=== PATIENT | male | born 1930 | race Caucasian/White ===

== ENCOUNTER 2016-10-01 10:43 | Inpatient (IN) | payer OTHER ==
[2016-10-01] VITALS (8 sets, daily range): BP systolic 90–127; BP diastolic 50–72; PULSE 72–90; TEMP 36.4–37.1; O2SAT 94–96; Ht 182.9 cm; Wt 62.3 kg
[~2016-10-01] VITALS: Ht 182.9 cm; Wt 62.3 kg
[~2016-10-01 10:43] MED LIST: ACET1TAB84 PO; EYE OPB; FLM4 PO; MULT-506 PO; VINEGAR PO
[2016-10-01 11:28] LABS: HEMATOCRIT 29.7 % (42-52); MEAN CELL VOLUME 94.9 fL (80-100); MEAN CORPUSCULAR HEMOGLOBIN 31.3 pg (25-34); MEAN PLATELET VOLUME 9.6 fL (7.4-10.4); PLATELET COUNT 257 K/uL (130-400); RED BLOOD COUNT 3.13 M/uL (4.7-6.1); WHITE BLOOD COUNT 10.12 K/uL (4.8-10.8)
[2016-10-01 11:40] LABS: PARTIAL THROMBOPLASTIN RATIO 0.9; PROTHROMBIN TIME (PATIENT) 10.6 SECONDS (9.0-12.0)
--- NOTE | 2016-10-01 11:46 | DIAGNOSTIC IMAGING REPORT ---
CHEST ONE VIEW PORTABLE CLINICAL HISTORY: Atypical chest pain. Dizziness. COMPARISON STUDY: 12/01/2011 FINDINGS: The heart is mildly enlarged. Underlying emphysema is suspected. A left midlung zone opacity was present on the prior study and remains stable. There are right basilar airspace opacities, inflammatory versus atelectatic.[ No pleural effusions are visualized. IMPRESSION: 1. Pulmonary emphysema 2. Cardiomegaly. No evidence of failure. 3. Right basilar airspace opacities, atelectatic versus inflammatory Electronically signed by: Brandon Moses M.D. 10/01/2016 11:44 AM Dictated Date/Time: 10/01/2016 11:43 AM
[2016-10-01 11:48] LABS: BUN/CREATININE RATIO 49.3 (10-20); CALCIUM 8.4 mg/dl (8.5-10.1); CREATININE 1.2 mg/dl (0.60-1.40); POTASSIUM 4.5 mmol/L (3.5-5.1)
[2016-10-01] MEDS ORDERED: LATA0.5S OP (11:58)
[2016-10-01] MEDS ORDERED: TAMS0.4C38 PO (11:58)
[2016-10-01] MEDS ORDERED: MULT-190 PO (11:58)
[2016-10-01] MEDS ORDERED: [UNRECOGNIZED DRUG - REMARK] PO (12:03)
[2016-10-01] MEDS ORDERED: ASPIRIN 81 MG CHEW PO STA (12:12)
[2016-10-01] MEDS ORDERED: OPTIRAY 320 IV PRN (12:30)
[2016-10-01] MEDS ORDERED: NITROGLYCERIN OINT 2% 1GM PACKET EXT ONE (12:30)
--- NOTE | 2016-10-01 12:41 | History and Physical ---
History & Physical Date & Time of Service: October 01, 2016 at 12:37 Chief Complaint: DIZZY Primary Care Physician: Sunny Lai M.D. History of Present Illness Source: patient, family This is an 85 yo M with PMHx of bladder and prostate cx, history of tobacco abuse x 67 years x 1/2 ppd, who presented to the ED after a worsening chest pain which began a few days ago, and reached a peak 10/10 last evening around 6- 7pm. The patient is here with his and son. The patient himself is a poor historian. His chest pain has been ongoing and dull for almost 2 weeks per his report, left chest wall, nonradiating, not relieved with tylenol. He notes increase lightheadedness and some dizziness with going from sit to stand but states this isn't necessarily new, it was just worse last night. He reports he was recently treated for a cold/bronchitis which lasted about 4 weeks. Since that time he has been slightly more short of breath, weak and decreased tolerance with walking. Pt is unable to specify exactly when his pain started, worsened, or other symptoms worsened. He states he has lost his appetite recently, and that he does not drink much of anything besides for coffee. He has dark tarry bowels and this has been going on for over a month now, he denies any BRBPR. He admits to bouts of diarrhea and constipation recently. He admits to nausea this morning, vomited yesterday. Pt notes he has vomited once per week for the last several months. He does not wear supplemental O2 or use anything for walking assistance. He admits to falling twice last night, but denies hitting his head or LOC. He was seen by his PCP this morning and was instructed to come to the ED. Here in the ED trop-I is significantly elevated at 17, hgb=9.8, Cr. 1.2 and around baseline. EKG was completed showing no ST wave inversion, likely old RBBB. A CTA chest was completed and negative for acute PE. 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[employer]) Immunizations History of Influenza Vaccine: No History of Tetanus Vaccine?: No History of Pneumococcal: No History of Hepatitis B Vaccine: No Multi-Drug Resistant Organisms History of MDRO: No Allergies Coded Allergies: No Known Allergies (Unverified , 10/01/16) Home Medications Scheduled Acetaminophen (Tylenol Arthritis Ext Rel), 650 MG PO QPM Latanoprost (Xalatan 0.005% Oph Kimberli), 1 DROPS OP HS Ocuvite Preservision (Ocuvite Preservision), 1 TAB PO DAILY Tamsulosin Hcl (Flomax), 0.4 MG PO QPM [Bladder Cancer Drug], 1 DOSE PO 2XWK Review of Systems Constitutional: + weight loss (5 lbs in 1 month), No chills, No fever, No sweats Eyes: + problem reported (blurred vision with lightheadedness), No diplopia ENT: No sore throat, No unusual epistaxis Respiratory: + dyspnea on exertion, No cough, No dyspnea at rest, No sputum Cardiovascular: + chest pain, No orthopnea, No palpitations Abdomen: + GI bleeding (black tarry stools), + nausea, + vomiting, No constipation, No diarrhea, No pain Musculoskeletal: No joint pain Genitourinary - Male: No hematuria Neurologic: + balance problems, + weakness, No numbness/tingling Psychiatric: No anxiety, No depression symptoms Endocrine: + fatigue Hematologic / Lymphatic: No abnormal bleeding/bruising, No clotting problems Integumentary: No itch, No rash Physical Exam Vital Signs Date Time Temp Pulse Resp B/P Pulse Ox O2 Delivery O2 Flow Rate FiO2 10/01/16 11:40 95 Room Air 10/01/16 11:21 97 Room Air 10/01/16 11:21 97 Room Air 10/01/16 11:05 80 10/01/16 10:49 36.7 87 18 107/67 94 Room Air General Appearance: WD/WN, no apparent distress, + obese Head: normocephalic, atraumatic Eyes: PERRL, EOMI ENT: hearing grossly normal, pharynx normal Neck: supple, no JVD Respiratory/Chest: chest non-tender, no respiratory distress, no accessory muscle use, + pertinent finding (faint crackles at left base, otherwise clear throughout) Cardiovascular: regular rate, rhythm, no JVD, normal peripheral pulses, + systolic murmur (Grade II/V LSB) Abdomen/GI: normal bowel sounds, non tender, soft, no organomegaly Back: normal inspection, no CVA tenderness Extremities/Musculoskelatal: normal inspection, no calf tenderness, no pedal edema, + pertinent finding (dressing on Left forearm c/d/i after sustained fall. ) Neurologic/Psych: alert, normal mood/affect, oriented x 3 Skin: normal color, warm/dry Diagnostics Laboratory Results Results Past 24 Hours Test 10/01/16 11:10 10/01/16 11:14 Range/Units White Blood Count 10.12 4.8-10.8 K/uL Red Blood Count 3.13 4.7-6.1 M/uL Hemoglobin 9.8 14.0-18.0 g/dL Hematocrit 29.7 42-52 % Mean Corpuscular Volume 94.9 80-100 fL Mean Corpuscular Hemoglobin 31.3 25-34 pg Mean Corpuscular Hemoglobin Concent 33.0 32-36 g/dl RDW Standard Deviation 50.1 36.4-46.3 fL RDW Coefficient of Variation 14.6 11.5-14.5 % Platelet Count 257 130-400 K/uL Mean Platelet Volume 9.6 7.4-10.4 fL Prothrombin Time 10.6 9.0-12.0 SECONDS Prothromb Time International Ratio 1.0 0.9-1.1 Activated Partial Thromboplast Time 24.0 21.0-31.0 SECONDS Partial Thromboplastin Ratio 0.9 Sodium Level 143 136-145 mmol/L Potassium Level 4.5 3.5-5.1 mmol/L Chloride Level 110 98-107 mmol/L Carbon Dioxide Level 28 21-32 mmol/L Anion Gap 5.0 3-11 mmol/L Blood Urea Nitrogen 59 7-18 mg/dl Creatinine 1.20 0.60-1.40 mg/dl Est Creatinine Clear Calc Drug Dose 38.8 ml/min Estimated GFR () 62.6 Estimated GFR (Non- 54.0 BUN/Creatinine Ratio 49.3 10-20 Random Glucose 98 70-99 mg/dl Calcium Level 8.4 8.5-10.1 mg/dl Total Bilirubin 0.3 0.2-1 mg/dl Aspartate Amino Transf (AST/SGOT) 85 15-37 U/L Alanine Aminotransferase (ALT/SGPT) 21 12-78 U/L Alkaline Phosphatase 50 45-117 U/L Total Creatine Kinase 683 39-308 U/L Creatine Kinase MB 61.5 0.5-3.6 ng/ml Creatine Kinase MB Ratio 9.0 0-3.0 Total Protein 6.7 6.4-8.2 gm/dl Albumin 3.4 3.4-5.0 gm/dl Globulin 3.3 2.5-4.0 gm/dl Albumin/Globulin Ratio 1.0 0.9-2 Bedside Troponin I 17.020 0-0.045 ng/ml Diagnostic Radiology CXR 10/01/16 IMPRESSION: 1. Pulmonary emphysema 2. Cardiomegaly. No evidence of failure. 3. Right basilar airspace opacities, atelectatic versus inflammatory EKG Vent. rate 83 BPM FL interval 188 ms QRS duration 90 ms QT/QTc 376/441 ms P-R-T axes 67 -27 4 Sinus rhythm with Fusion complexes and Premature atrial complexes with Aberrant conduction Otherwise normal ECG When compared with ECG of 10-AUG-2009 12:38, Fusion complexes are now Present T wave amplitude has increased in Anterior leads Impression Assessment and Plan This is an 85 yo M with PMHx of bladder and prostate cx, history of tobacco abuse x 67 years x 1/2 ppd, who presented to the ED after a worsening chest pain which began a few days ago, and reached a peak 10/10 last evening around 6- 7pm. Elevated troponin - Admit to tele - Checking cardiac biomarkers, first troponin elevated at 17, will trend 2 more sets - Possible that this is demand ischemia vs NSTEMI as the pt has dropped 4 g from Mar 2016 where Hgb was 13.3, and is now down to 9.8. He is also admitting to black and tarry stools. - Cards consulted, no urgent need for cath as the pt chest pain is improved with nitro and morphine in the ED. - Nitro prn and morphine sulfate prn - Echo 2D ordered - QAM EKG ordered x 3 - CTA negative for acute PE GI bleed - Gastroenterology consulted - Hemoccult + in the ED, not on any anticoagulation - Will transfuse 1 U PRBC with ischemia and symptoms as per HPI. - NPO except sips and chips - Protonix bolus 40 mg IV BID Tobacco Use - Will order nicotine patch - Cessation encouraged Bladder cancer hx Prostate Cancer hx - Cont Flomax daily DVT ppx: teds, scds CODE STATUS: DNR Disposition: From home, lives with , no discharge needs anticipated. Pt seen/examined independently. I discussed the case with the PA and agree with the findings and plan as documented in the note. Any exceptions or clarifications are listed here: 85 y/o M initial complaint of central CP - Labs consistent with NSTEMI Pt has also had black stools over past 2-3 weeks and Hb has dropped 4 units compared to recent Cardiology and GI consults are pending at [facility] AAO x 3 S1,2 R CTAB NT, NT No CCE P: Pt admitted to telemetry, placed on Protonix, GI consult requested - receiving 1 unit PRBCs as ischemia may be demand-related We have also contacted cardiology although there is little we can do regarding anticoagulation/cath until his bleeing resolves Pt is comfortable at time of admission - vital signs stable Above discussed with pt/ at bedside and PA Documented By: Hernan Iglesias Level of Care Telemetry Resuscitation Status DO NOT RESUSCITATE VTE Prophylaxis VTE Risk Assessment Done? Y/N: Yes Risk Level: Low Given or contraindicated: T.E.D. Stockings, SCD's
--- NOTE | 2016-10-01 12:55 | DIAGNOSTIC IMAGING REPORT ---
CT ANGIOGRAM OF THE CHEST CLINICAL HISTORY: Chest pain, cough, dizziness, vomiting. COMPARISON STUDY: 01/21/2007 TECHNIQUE: Following the IV administration of 94 mL of Optiray-320, CT angiogram of the thorax was performed from the thoracic inlet to the lung bases utilizing the pulmonary embolus protocol. Images are reviewed in the axial, sagittal, and coronal planes. IV contrast was administered without complication. MIP imaging was performed. CT DOSE: 308.20 mGycm FINDINGS: Mediastinal and hilar lymph nodes are the upper limits of normal in size. There is no pathologic axillary lymphadenopathy. The heart is enlarged. There are coronary artery calcifications. There was no evidence of thoracic aortic dilatation. There were no pulmonary artery filling defects to indicate acute pulmonary embolism. No pleural effusions are visualized. There is pulmonary emphysema. There are dependent bilateral pulmonary airspace opacities. There is respiratory motion artifact. There are few scattered pleural plaques. There are several right middle lobe pulmonary nodules, the largest of which measures 3 mm. There is a 5 mm left upper lobe pulmonary nodule. IMPRESSION: 1. No CT evidence of acute pulmonary embolism 2. Cardiomegaly and coronary artery calcifications 3. Severe emphysema 4. Bilateral pleural plaques 5. Scattered subcentimeter pulmonary nodules, the largest of which measures 5 mm and is located within the left upper lobe 6. Bilateral dependent pulmonary airspace opacities, atelectasis versus pneumonia. Clinical correlation and follow-up is recommended Electronically signed by: Brandon Moses M.D. 10/01/2016 12:54 PM Dictated Date/Time: 10/01/2016 12:48 PM
[2016-10-01] MEDS ORDERED: ACETAMINOPHEN 325 MG TAB PO PRN (13:15)
[2016-10-01] MEDS ORDERED: ONDANSETRON INJ 2 MG/ML 2 ML VIAL IV PRN (13:15)
[2016-10-01] MEDS ORDERED: POLYETHYLENE (MIRALAX) 17 GM PACK PO PRN (13:15)
[2016-10-01] MEDS ORDERED: NITROGLYCERIN 0.4 MG SL PER TAB CHARGE SL PRN (13:15)
[2016-10-01] MEDS ORDERED: HEPARIN SOD (PORCINE) 1000 UNIT/ML 10 ML VIAL IV STA (14:28)
[2016-10-01] MEDS ORDERED: HEPARIN 25,000 UNIT/500ML D5W 500 ML IV PRN (14:30)
[2016-10-01] MEDS: SODIUM CHLORIDE 0.9% 1000ML 1,000 ML IV SCH (15:31)
--- NOTE | 2016-10-01 17:06 | ECHOCARDIOGRAM REPORT ---
*NOTICE TO RECEIVING DEMOCRAT AGENCY This information is strictly Confidential and protected under [place] law. [place] law prohibits you from making any further disclosure of this information unless further disclosure is expressly permitted by the written consent of the person to whom it pertains or is authorized by law. A general authorization for the release of medical or other information is not sufficient for this purpose. Hospital accepts no responsibility if the information is made available to any other person, INCLUDING THE PATIENT. Interpretation Summary * Name: BRITTON STALEY Study Date: 10/01/2016 03:28 PM BP: 127/72 mmHg * Patient Location: [facility] HR: 88 * : 1930 (M/d/yyyy) Gender: Male Height: 72 in * Age: 85 yrs Ethnicity: CA Weight: 139 lb * Ordering Physician: Lashay Gonzalez * Referring Physician: Self, Referred * Performed By: Doris Thompson RDCS * * Reason For Study: CHEST PAIN * BSA: 1.8 m2 * -- Conclusions -- * Left ventricular systolic function is low normal. * Grade I diastolic dysfunction, (abnormal relaxation pattern). * There are regional wall motion abnormalities as specified. * Mild to moderate aortic regurgitation. * There is moderate mitral annular calcification. * There is moderate mitral regurgitation. * Right ventricular systolic pressure is normal. Procedure Details * A complete two-dimensional transthoracic echocardiogram was performed (2D, M-mode, Doppler and color flow Doppler). Left Ventricle * The left ventricle is normal in size. * There is normal left ventricular wall thickness. * Ejection Fraction = 50-55%. * Left ventricular systolic function is low normal. * Grade I diastolic dysfunction, (abnormal relaxation pattern). * There are regional wall motion abnormalities as specified. * Basal infero-lateral hypokinesis, moderate Right Ventricle * The right ventricle is normal in size and function. Atria * The left atrial size is normal. * Right atrial size is normal. Mitral Valve * There is moderate mitral annular calcification. * Calcified mitral apparatus. * There is moderate mitral regurgitation. Tricuspid Valve * The tricuspid valve is not well visualized, but is grossly normal. * There is mild tricuspid regurgitation. * Right ventricular systolic pressure is normal. Aortic Valve * Aortic valve sclerosis moderate, without significant aortic valvular stenosis. * No hemodynamically significant valvular aortic stenosis. * Mild to moderate aortic regurgitation. Great Vessels * The aortic root is normal size. Pericardium/Pleural * There is no pericardial effusion. Great Vessels * Normal inferior vena cava diameter and respiratory variation suggests normal central venous pressure. MMode 2D Measurements and Calculations IVSd 1.2 cm IVSs 1.7 cm LVIDd 5.2 cm LVIDs 3.8 cm LVPWd 1.1 cm LVPWs 1.6 cm IVS/LVPW 1.0 FS 25.5 % EDV(Teich) 127.2 ml ESV(Teich) 63.6 ml EF(Teich) 50.0 % EDV(cubed) 137.4 ml ESV(cubed) 56.8 ml EF(cubed) 58.7 % % IVS thick 47.3 % % LVPW thick 44.1 % LV mass(C)d 227.6 grams LV mass(C)dI 124.7 grams/m\S\2 LV mass(C)s 257.8 grams LV mass(C)sI 141.3 grams/m\S\2 SV(Teich) 63.6 ml SI(Teich) 34.8 ml/m\S\2 SV(cubed) 80.6 ml SI(cubed) 44.2 ml/m\S\2 Ao root diam 3.9 cm Ao root area 11.9 cm\S\2 LVAd ap4 35.8 cm\S\2 LVLd ap4 9.0 cm EDV(MOD-sp4) 116.6 ml EDV(sp4-el) 120.4 ml LVAs ap4 23.4 cm\S\2 LVLs ap4 7.7 cm ESV(MOD-sp4) 63.5 ml ESV(sp4-el) 60.1 ml EF(MOD-sp4) 45.5 % EF(sp4-el) 50.1 % LVAd ap2 34.1 cm\S\2 LVLd ap2 8.7 cm EDV(MOD-sp2) 114.2 ml EDV(sp2-el) 113.8 ml LVAs ap2 20.6 cm\S\2 LVLs ap2 6.7 cm ESV(MOD-sp2) 54.4 ml ESV(sp2-el) 53.9 ml EF(MOD-sp2) 52.3 % EF(sp2-el) 52.7 % LVLd %diff -3.80 % EDV(MOD-bp) 118.4 ml LVLs %diff -16.10 % ESV(MOD-bp) 62.6 ml EF(MOD-bp) 47.1 % SV(MOD-sp4) 53.1 ml SI(MOD-sp4) 29.1 ml/m\S\2 SV(MOD-sp2) 59.7 ml SI(MOD-sp2) 32.7 ml/m\S\2 SV(MOD-bp) 55.8 ml SI(MOD-bp) 30.6 ml/m\S\2 SV(sp4-el) 60.3 ml SI(sp4-el) 33.0 ml/m\S\2 SV(sp2-el) 60.0 ml SI(sp2-el) 32.9 ml/m\S\2 Doppler Measurements and Calculations Ao V2 max 174.4 cm/sec Ao max PG 12.2 mmHg Ao max PG (full) 9.3 mmHg AI max aruna 331.1 cm/sec AI max PG 43.8 mmHg AI dec slope 125.0 cm/sec\S\2 AI P1/2t 775.8 msec LV V1 max PG 2.9 mmHg LV V1 max 84.6 cm/sec TR max aruna 249.9 cm/sec
--- NOTE | 2016-10-01 19:50 | GASTROINTESTINAL CONSULTATION ---
DATE OF CONSULTATION: 10/01/2016 CHIEF COMPLAINT: Melena and anemia. HISTORY OF PRESENT ILLNESS: Mr. Christopher is an 85-year-old white male who presented to the Emergency Room with substernal chest pain and found to have evidence of myocardial injury based on serum CK and troponin levels. During his workup, the patient was also found to be anemic and reports a 6-12 month history that he passes black stools on many days, but not all. This was black, but not necessarily tarry in its appearance. The patient denies any hematemesis or coffee ground emesis but does report a pattern that so on some days he will eat and then approximately a half hour later have vomiting. His appetite has been diminished and he has lost approximately 10-15 pounds over the past year or so. The patient did give an unclear history regarding surgery that he had when he was 20 years of age. 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 He did not report a history of prior peptic ulcer disease and apparently had no symptoms following this over the past 60 years or so. He also describes that he may have had a rigid sigmoidoscope at the same time, but does not recall any prior history of colonoscopy or subsequent upper endoscopy, at any time in the past. He occasionally uses Aleve, but does not report a steady or constant-dosing pattern. PAST MEDICAL HISTORY: Includes bladder cancer and prostate cancer. SOCIAL HISTORY: The patient denies alcohol use. He continues to use tobacco products approximately 6-7 cigarettes daily. 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 ALLERGIES: He has no known drug allergies. CURRENT HOME MEDICATIONS: Include latanoprost, Xalatan, Ocuvite, Flomax, a bladder cancer drug and acetaminophen. FAMILY HISTORY: Showed no reports of colorectal cancer or inflammatory bowel disease in any first or second degree relatives. REVIEW OF SYSTEMS: Otherwise noncontributory based on 14-point exam except for mentioned above. On further review of systems, the patient described that his stool patterns can fluctuate such that he has constipation and occasionally diarrhea. He does use mineral oil and when his stools do loosen up, they tend to be more of a light brown. PHYSICAL EXAMINATION: VITAL SIGNS: Today on admission to the Emergency Room - blood pressure 107/67, room air 94%. He is afebrile at 36.7, heart rate 87, respirations 18. GENERAL: The patient is awake, alert and oriented x3. NEUROLOGICALLY: He is nonfocal. HEENT: Sclerae are anicteric, conjunctiva moist. Oral mucosa moist. HEART: Normal S1, S2, without rubs, gallops or murmurs. LUNGS: Clear to auscultation without wheezes or rhonchi. ABDOMEN: Soft, shows a midline incision that is well healed. The abdomen is flat with positive bowel sounds. There is no evidence of abdominal bruits. I do not appreciate hepatosplenomegaly. There is no evidence of ascites or shifting dullness. EXTREMITIES: Without clubbing, cyanosis or edema. RECTAL: Deferred at this time. LABORATORY STUDIES ON ADMISSION: White count 10.1, hemoglobin 9.8, MCV 95, platelet count is 257. INR 1.0. His BUN and creatinine are 59 and 1.2, on admission. Glucose 98. Liver tests are normal with total bilirubin 0.3, AST slightly elevated at 85 (myocardial injury) but normal ALT of 21 and alkaline phosphatase is normal at 50. His CK is elevated at 683 with an MB fraction of 61.5. The patient also has an elevated troponin level of 17. His albumin is 3.4. IMAGING DATA: The patient had an EKG which showed sinus rhythm with apices, otherwise normal. There is T-wave amplitude increase in the anterior leads. Chest x-ray shows pulmonary emphysema, evidence of cardiomegaly and airspace disease in the right base. A CT scan was also performed. IMPRESSION: The patient with a hemoglobin of 9.8 on admission with reports of melena and dark stool that could be as long as 6 months and maybe a year. The patient denies Pepto-Bismol use, has not used significant amounts of NSAIDs over the past months, although there has been a pattern of approximately 12-pound weight loss. The BUN and creatinine ratio is elevated and may suggest an upper bleeding source. The exact surgery performed 60 years ago on his stomach is unclear. PLAN AND RECOMMENDATIONS: I made the following recommendations: An upper endoscopy and eventually colonoscopy is prudent, particularly if anticoagulation will be needed in short or long-term fashion. However, will await cardiology's input as to whether the patient can undergo this given the degree of enzyme elevation as well as the presentation on admission of 10/10 chest pain. Depending on would continue PPI drip and with test stools for H. pylori. I will tentatively make the patient n.p.o. for possible EGD tomorrow; however, but I will need to coordinate this with the primary care team and cardiology to ensure that the risk is acceptable for this patient given his presentation and cardiac enzyme elevations. The patient did have an echocardiogram, which was performed but is presently pending final report. There is evidence on the preliminary interpretation of mild to moderate aortic regurgitation, mitral regurgitation, normal RV systolic pressure, but regional wall motion abnormalities and LV function is low normal. Ejection fraction is 50-55% with normal RV function. Mild tricuspid regurgitation and there is no evidence for pericardial effusion. We will keep patient n.p.o. after midnight except for necessary meds. Further recommendations to follow once cardiology assessment is completed. Thank you for allowing me to participate in this patient's care. Ultimately, the patient will eventually require colonoscopy and upper endoscopy and time will be based on cardiology workup.
[2016-10-01] MEDS ORDERED: ATORVASTATIN 40 MG TAB PO ONE (20:00)
--- NOTE | 2016-10-01 20:17 | EMERGENCY ROOM VISIT NOTE ---
History Report prepared by Artemio: Sanjay Talley Under the Supervision of: Dr. John Yanez M.D. First contact with patient: 12:04 Chief Complaint: CHEST PAIN Stated Complaint: DIZZY Nursing Triage Summary: Chest pressure and dizziness intermittent for past month, started to be constant with the chest pressure since last night. Minor, non-radiating (and feels better upon presentation to ED), worse with palpation. Took 2 Aleve, unknown dose last night. Also had nausea with near syncope and lowered to floor, abrasion to right forearm on railing, no other injuries. Hx of bladder cancer ongoing, no current treatment for it. History of Present Illness The patient is an 85 year old male who presents to the Emergency Room with complaints of intermittent dizziness beginning one month ago. The patient reports that his current discomfort is a 5/10 in severity. He states that his symptoms worsened last evening and said it felt like a minor MA. The patient notes that he was short of breath and it was painful to breath. The patient states that he currently takes Tylenol Arthritis daily. He reports that he has had an MA in the past. His son notes that the patient is currently a smoker and had a shadow shown on his lungs a few years ago. He states that he is currently taking Promex for his current prostate and bladder cancer. The patient notes that he has no history of chest problems. The patient currently complains of nausea, chest pain, decreased appetite, and melena. Pt denies LOC, headache, fevers, chills, diaphoresis, visual changes, neck pain, vomiting, abdominal pain , back pain, hematochezia, urinary symptoms, numbness, weakness, lymphadenopathy , rash, or other complaints. He states that his PCP is Sunny Lai at [facility]. Source of History: patient, family (Spouse and son) Onset: last month Position: other (global) Symptom Intensity: 5/10 Quality: other (dizziness) Timing: intermittent Associated Symptoms: + SOB, + chest pain, + melena Review of Systems See HPI for pertinent positives and negatives. A total of ten systems were reviewed and were otherwise negative. Past Medical & Surgical Medical Problems: (1) Bladder cancer (2) Elevated troponin (3) GI bleed (4) Prostate CA Family History No pertinent family history stated. Social History Smoking Status: Current Every Day Smoker Marital Status: Housing Status: lives with family Occupation Status: retired Current/Historical Medications Scheduled Acetaminophen (Tylenol Arthritis Ext Rel), 650 MG PO QPM Latanoprost (Xalatan 0.005% Oph Kimberli), 1 DROPS OP HS Ocuvite Preservision (Ocuvite Preservision), 1 TAB PO DAILY Tamsulosin Hcl (Flomax), 0.4 MG PO QPM [Bladder Cancer Drug], 1 DOSE PO 2XWK Allergies Coded Allergies: No Known Allergies (Unverified , 10/01/16) Physical Exam Vital Signs Date Time Temp Pulse Resp B/P Pulse Ox O2 Delivery O2 Flow Rate FiO2 10/01/16 13:19 93 10/01/16 13:13 87 22 99 10/01/16 13:00 130/70 10/01/16 12:48 122/63 10/01/16 12:13 90 18 97 10/01/16 12:01 156/83 10/01/16 11:43 77 22 95 10/01/16 11:40 95 Room Air 10/01/16 11:30 116/60 10/01/16 11:21 97 Room Air 10/01/16 11:21 97 Room Air 10/01/16 11:13 80 21 96 10/01/16 11:05 80 10/01/16 11:00 119/58 10/01/16 10:58 131/65 10/01/16 10:49 36.7 87 18 107/67 94 Room Air Physical Exam GENERAL: Awake, alert, well-appearing, in no distress HENT: Normocephalic, atraumatic. Oropharynx unremarkable. EYES: Normal conjunctiva. Sclera non-icteric. NECK: Supple. No nuchal rigidity. FROM. No JVD. RESPIRATORY: Clear to auscultation. CARDIAC: Regular rate, normal rhythm. Extremities warm and well perfused. Pulses equal. ABDOMEN: Soft, non-distended. No tenderness to palpation. No rebound or guarding. No masses. RECTAL: Trace of nash positive stool, no gross blood MUSCULOSKELETAL: Chest examination reveals no tenderness. The back is symmetrical on inspection without obvious abnormality. There is no CVA tenderness to palpation. No joint edema. LOWER EXTREMITIES: Calves are equal size bilaterally and non-tender. No edema. No discoloration. NEURO: Normal sensorium. No sensory or motor deficits noted. SKIN: No rash or jaundice noted. Medical Decision & Procedures ER Provider Diagnostic Interpretation: Radiology results as stated below per my review and radiologist interpretation: CHEST ONE VIEW PORTABLE CLINICAL HISTORY: Atypical chest pain. Dizziness. COMPARISON STUDY: 12/01/2011 FINDINGS: The heart is mildly enlarged. Underlying emphysema is suspected. A left midlung zone opacity was present on the prior study and remains stable. There are right basilar airspace opacities, inflammatory versus atelectatic.[ No pleural effusions are visualized. IMPRESSION: 1. Pulmonary emphysema 2. Cardiomegaly. No evidence of failure. 3. Right basilar airspace opacities, atelectatic versus inflammatory Electronically signed by: Brandon Moses M.D. 10/01/2016 11:44 AM Dictated Date/Time: 10/01/2016 11:[address] ANGIOGRAM OF THE CHEST CLINICAL HISTORY: Chest pain, cough, dizziness, vomiting. COMPARISON STUDY: 01/21/2007 TECHNIQUE: Following the IV administration of 94 mL of Optiray-320, CT angiogram of the thorax was performed from the thoracic inlet to the lung bases utilizing the pulmonary embolus protocol. Images are reviewed in the axial, sagittal, and coronal planes. IV contrast was administered without complication. MIP imaging was performed. CT DOSE: 308.20 mGycm FINDINGS: Mediastinal and hilar lymph nodes are the upper limits of normal in size. There is no pathologic axillary lymphadenopathy. The heart is enlarged. There are coronary artery calcifications. There was no evidence of thoracic aortic dilatation. There were no pulmonary artery filling defects to indicate acute pulmonary embolism. No pleural effusions are visualized. There is pulmonary emphysema. There are dependent bilateral pulmonary airspace opacities. There is respiratory motion artifact. There are few scattered pleural plaques. There are several right middle lobe pulmonary nodules, the largest of which measures 3 mm. There is a 5 mm left upper lobe pulmonary nodule. IMPRESSION: 1. No CT evidence of acute pulmonary embolism 2. Cardiomegaly and coronary artery calcifications 3. Severe emphysema 4. Bilateral pleural plaques 5. Scattered subcentimeter pulmonary nodules, the largest of which measures 5 mm and is located within the left upper lobe 6. Bilateral dependent pulmonary airspace opacities, atelectasis versus pneumonia. Clinical correlation and follow-up is recommended Electronically signed by: Brandon Moses M.D. 10/01/2016 12:54 PM Dictated Date/Time: 10/01/2016 12:48 PM Laboratory Results 10/01/16 11:10 10/01/16 11:10 Test 10/01/16 11:10 10/01/16 11:14 Red Blood Count 3.13 M/uL (4.7-6.1) Mean Corpuscular Volume 94.9 fL (80-100) Mean Corpuscular Hemoglobin 31.3 pg (25-34) Mean Corpuscular Hemoglobin Concent 33.0 g/dl (32-36) RDW Standard Deviation 50.1 fL (36.4-46.3) RDW Coefficient of Variation 14.6 % (11.5-14.5) Mean Platelet Volume 9.6 fL (7.4-10.4) Prothrombin Time 10.6 SECONDS (9.0-12.0) Prothromb Time International Ratio 1.0 (0.9-1.1) Activated Partial Thromboplast Time 24.0 SECONDS (21.0-31.0) Partial Thromboplastin Ratio 0.9 Anion Gap 5.0 mmol/L (3-11) Est Creatinine Clear Calc Drug Dose 38.8 ml/min Estimated GFR () 62.6 Estimated GFR (Non- 54.0 BUN/Creatinine Ratio 49.3 (10-20) Calcium Level 8.4 mg/dl (8.5-10.1) Total Bilirubin 0.3 mg/dl (0.2-1) Aspartate Amino Transf (AST/SGOT) 85 U/L (15-37) Alanine Aminotransferase (ALT/SGPT) 21 U/L (12-78) Alkaline Phosphatase 50 U/L (45-117) Total Creatine Kinase 683 U/L (39-308) Creatine Kinase MB 61.5 ng/ml (0.5-3.6) Creatine Kinase MB Ratio 9.0 (0-3.0) Total Protein 6.7 gm/dl (6.4-8.2) Albumin 3.4 gm/dl (3.4-5.0) Globulin 3.3 gm/dl (2.5-4.0) Albumin/Globulin Ratio 1.0 (0.9-2) Bedside Troponin I 17.020 ng/ml (0-0.045) Laboratory results reviewed by me Medications Administered Medications (Trade) Dose Ordered Sig/Eric Route Start Time Stop Time Status Last Admin Dose Admin Aspirin (Aspirin Chew) 324 mg NOW STAT PO 10/01/16 12:12 10/01/16 12:14 DC 10/01/16 12:26 324 MG Nitroglycerin 0.5 inch 0.5 inch NOW ONCE EXT 10/01/16 12:30 10/01/16 12:31 DC 10/01/16 12:49 0.5 INCH Sodium Chloride (Nss 1000ml) 1,000 ml @ 80 mls/hr [id number] IV 10/01/16 13:11 10/31/16 13:10 10/01/16 15:31 80 MLS/HR ECG Indication: chest pain Rate (beats per minute): 83 Rhythm: sinus rhythm Findings: PAC, no acute ischemic change ED Course 1210: The patient was evaluated in room C07. A complete history and physical exam was performed. 1431: Upon reexamination, the patient was resting easy. I discussed the test results and treatment plan with Dr. Iglesias, Hospitalist. The patient will be evaluated for further management. Medical Decision Triage Nursing notes reviewed. The patient's presentation and history were concerning for chest pain. Etiologies such as cardiac ischemia, aortic dissection, pulmonary embolism, pneumonia, pneumothorax, musculoskeletal, infections, gastrointestinal, as well as others were entertained. the patient was evaluated. Clinically he was doing well. EKG did not show acute ischemic change. The patient had a mild anemia on CBC. Her chemistry panel shows mild dehydration and coags are unremarkable. Chest x-ray shows some atelectasis. Cardiac markers revealed significant elevation of troponin and CK-MB concerning for non-ST elevation MA. Given the patient's history of cancer a CT scan of the chest was performed. No pulmonary embolus was seen. The patient was given aspirin. Because of his anemia a rectal examination was performed. The patient had heme positive stools. Because of this IV heparin was not initiated. He will need further evaluation and management in the hospital. I discussed this with the patient as well as family. Internal medicine was consulted. They've evaluated the patient in the Emergency Room for further management. The chart was completed utilizing [employer] voice recognition software. Grammatical errors, random word insertions, pronoun errors, and incomplete sentences are an occasional consequence of this system due to software limitations, ambient noise, and hardware issues. Any formal questions or concerns about the content, text, or information contained within the body of this dictation should be directly addressed to the physician for clarification. Consults Time Called: 1423 Consulting Physician: Ilia Mcintoshist Returned Call: 1431 I updated Alexis Mcintosh of the patient's case. The patient will be evaluated for further treatment. Impression Primary Impression: Non-ST elevation MA (NSTEMI) Additional Impressions: Elevated troponin Anemia Critical Care I have personally spent greater than 30 minutes of critical care time in the direct management of this patient. This includes bedside care, interpretation of diagnostic studies, and testing, discussion with consultants, patient, and family members, and other required patient management activities. This 30 minutes is in excess of all separately billable procedures. Scribe Attestation The scribe's documentation has been prepared under my direction and personally reviewed by me in its entirety. I confirm that the note above accurately reflects all work, treatment, procedures, and medical decision making performed by me. Departure Information Dispostion Being Evaluated By Hospitalist Referrals Sunny Lai M.D. (PCP) Patient Instructions My [facility] Problem Qualifiers
[2016-10-01 20:22] LABS: HEMATOCRIT 27.9 % (42-52)
[2016-10-01] MEDS ORDERED: PANTOprazole INJ 40 MG in SYRINGE 0 ML IV SCH (21:00)
[2016-10-01] MEDS: LATANOPROST 0.005% OP SOLN 2.5 ML BTL OP SCH (21:25)
[2016-10-01] MEDS: TAMSULOSIN HCL 0.4 MG CAP PO SCH (21:25)
[2016-10-02] VITALS (14 sets, daily range): BP systolic 93–151; BP diastolic 42–77; PULSE 68–89; TEMP 36.3–37.1; O2SAT 92–97
[2016-10-02 02:07] LABS: BASO % 0.4 %; BASO ABS # 0.03 K/uL (0-0.2); COMPLETE YES; EOS % 4.5 %; HEMATOCRIT 27.1 % (42-52); IG% 0.3 %; LYMPH % 32.1 %; LYMPH ABS # 2.41 K/uL (1.2-3.4); MEAN CELL VOLUME 93.8 fL (80-100); MEAN CORPUSCULAR HEMOGLOBIN 31.1 pg (25-34); MEAN CORPUSCULAR HGB CONC 33.2 g/dl (32-36); MEAN PLATELET VOLUME 8.8 fL (7.4-10.4); MONO % 9.9 %; NEUT % 52.8 %; PLATELET COUNT 186 K/uL (130-400); RED BLOOD COUNT 2.89 M/uL (4.7-6.1); WHITE BLOOD COUNT 7.51 K/uL (4.8-10.8)
[2016-10-02 02:26] LABS: BUN/CREATININE RATIO 39.3 (10-20); CREATININE 1.1 mg/dl (0.60-1.40)
[2016-10-02 02:48] LABS: CHOLESTEROL/HDL RATIO 2.3
--- NOTE | 2016-10-02 03:22 | CARDIOLOGY CONSULTATION ---
DATE OF CONSULTATION: 10/01/2016 REFERRING PHYSICIAN: Hernan Iglesias. CHIEF COMPLAINT: Elevated troponin. HISTORY OF PRESENT ILLNESS: Mr. Eliseo Christopher is an 85-year-old gentleman without a known history of cardiac disease who reports a several week history of chest discomfort. This is relatively atypical in the sense that it is fairly well localized in the left upper chest area. It does not generally radiate to the left arm or jaw. There no radiation to the back. It is not generally associated with significant dyspnea. The symptom has several times waxed and waned in severity, and occurs randomly. However, last evening, the patient had increased severity of this symptom with an extended duration. It was associated with some dizziness and falls. There was also an element of significant diuresis, nausea and vomiting. The symptom itself was quite severe and did not resolve with administration of ibuprofen. The patient tolerated the symptoms, slept and eventually sought attention with his primary care physician later the next morning and was directed to the Emergency Room for an additional evaluation. In addition to the chest pain as mentioned above, he had symptoms of nausea and vomiting. He states that occasionally with vomiting, there was some dark emesis but no jluis blood. He had 3 falls during the course of the evening which were associated with dizziness. These tended to occur after standing up and ambulating to the bathroom. He was not aware of palpitations or rapid heart rates. The patient was evaluated at [facility] emergency room. He was administered narcotic and nitrates with resolution of his chest discomfort. At the time of the interview, the patient states that he is quite comfortable. He has some mild discomfort in the left knee, but no current chest pain. In general, he is an active individual who is able to perform routine activities with minimal limitation. He does have occasional dyspnea, but this is not severe. He denies significant orthopnea or paroxysmal nocturnal dyspnea. He has had low appetite recently and states that generally after eating, he will become significantly nauseated and will vomit. He also had some difficulty with his bowel which include a sense of alternating constipation and diarrhea. He states he did have loose stools on occasion that he describes as "concrete paced," but these are not dark and generally brown in color. He does have occasional pellet-type stools which are black. PAST MEDICAL HISTORY: Significant for: 1. Both bladder and prostate cancer. The patient had a partial radiation treatment for prostate cancer. He has had no treatment for bladder cancer. 2. History of tobacco abuse. PAST SURGICAL HISTORY: Significant for: 1. Left carotid endarterectomy. 2. Appendectomy. 3. Inguinal hernia repair x3. 4. Adhesiolysis. OUTPATIENT MEDICATIONS: Included acetaminophen, latanoprost, tamsulosin. MEDICAL ALLERGIES: No known medical allergies. FAMILY HISTORY: Noncontributory, given the patient's advanced age; however, no premature coronary disease. SOCIAL HISTORY: The patient currently lives with his second . He denies significant alcohol abuse. He does have a history of tobacco abuse. REVIEW OF SYSTEMS: A complete 10-system review of systems was performed and the pertinent positives are noted in the history of present illness, the remainder being negative. PHYSICAL EXAMINATION: GENERAL: The patient does not appear to be in any acute distress. He is a pleasant gentleman who is alert and oriented. Mood and affect appeared normal. He answered all questions appropriately. CURRENT VITAL SIGNS: Include, blood pressure 127/72 with pulse of 88. HEENT: Sclerae are anicteric. His pupils are equal, and reactive to light and accommodation. Extraocular movements were intact. NECK: Palpation of submandibular region did not reveal any significant lymphadenopathy. The carotids are palpable bilaterally. There are no bruits on auscultation. He did have a well-healed scar along the left carotid margin. Thyroid is not enlarged. LUNGS: Auscultation of his lungs revealed them to be clear. There were no rales, wheezes or rhonchi. CARDIAC: Revealed him to be in a regular rhythm. There were no murmurs appreciated. S1, S2 appeared to be normal. ABDOMEN: Soft and nontender. EXTREMITIES: Evaluation of both wrists revealed radial pulses that were equal in intensity. There is no evidence of cyanosis or clubbing. He was missing his left fourth digit and the tip of the third digit on the right. Evaluation of lower extremities did not reveal any significant peripheral edema. He had palpable femoral pulses bilaterally, no bruits on auscultation. LABORATORY STUDIES: Obtained since admission include, a white cell count of 10, hemoglobin of 9.8, platelet count of 257. Sodium is 143, potassium is 4.5, BUN was 59, creatinine was 1.2. Troponin was 17, total CK was 683. The patient underwent a chest CT at the time of admission which did not reveal any evidence of pulmonary embolism. There were coronary artery calcification with evidence of pulmonary emphysema, 5 mm nodule was also noted in the left upper lobe. Single view chest x-ray was obtained which did not reveal any evidence of acute disease, but there was once again a suggestion of emphysema. A 12-lead EKG was obtained at the time of admission which revealed the patient to be in a normal sinus rhythm. 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 ASSESSMENT AND PLAN: 1. Non-ST elevation myocardial infarction. The patient likely had a completed infarct after an extended period of ischemia last evening. There are no risk factors for coronary disease including a history of peripheral vascular disease, advanced age and tobacco abuse. He did undergo echocardiography today which revealed preserved left ventricular systolic function and suggestion of basilar inferolateral wall motion abnormalities. Generally speaking, the patient and his nature, would undergo systemic anticoagulation, administration of aspirin and beta blockers in addition to efforts that pain control. He is currently comfortable. He efforts that anticoagulation has been post-poned due to some concern regarding gastrointestinal hemorrhage. He does have a slightly lower hemoglobin than prior and this likely will drop further with hydration. Nonetheless, it does not appear to have brisk bleeding based on his history. Gastroenterology has been consulted and we are anxiously await their report. In circumstance of this nature, we would also recommend an early invasive strategy for evaluation of his coronary artery. Once again, this will depend on the acuity of his bleeding if discovered. I did have a discussion with the patient regarding coronary angiography. At this point, he is not confident that he wants the procedure done. He seems to have somewhat of sadistic attitude. In the past, he has not sought treatment for two malignancies and currently seems to be resigned to "ending this chapter." 2. Dizziness. The patient did not report overt syncope, but he is not quite sure if he passed out for a brief period of time. The symptom sound somewhat orthostatic in nature, although in the setting of a myocardial infarction, a ventricular arrhythmia is certainly a possibility. He does have preserved left ventricular systolic function at this point. He will be monitored on telemetry. 3. Tobacco abuse. The patient will be counseled on need to quit. 4. Valvular heart disease. The patient has mild to moderate aortic regurgitation and moderate mitral regurgitation on echocardiogram. This does not appear to have caused any hemodynamic derangements or pulmonary vascular congestion. At this point, they could be followed longitudinally. FINAL RECOMMENDATIONS: 1. Recommend systemic anticoagulation and administration of aspirin when possibility of gastrointestinal hemorrhage has been properly evaluated. 2. Recommend coronary angiography, once again pending patient's approval and evaluation for active bleeding. 3. Addition of beta delphine to the patient's medical regimen. 4. Tobacco cessation. 5. Continuation of nitrates and narcotics for symptomatic relief of recurrent chest discomfort. 6. Administration of high dose atorvastatin.
[2016-10-02] MEDS: SODIUM CHLORIDE 0.9% 1000ML 1,000 ML IV SCH (03:59)
[2016-10-02] MEDS ORDERED: PANTOprazole INJ 80 MG in DEXTROSE 5% 100ML IV STA (04:31)
[2016-10-02] MEDS ORDERED: PANTOprazole INJ 40 MG in DEXTROSE 5% 100ML IV SCH (04:45)
--- NOTE | 2016-10-02 07:18 | Hospitalist Progress Note ---
Hospitalist Progress Note Date of Service October 02, 2016. Subjective Pt evaluation today including: conversation w/ patient, conversation w/ family , physical exam, chart review, lab review, review of studies, conversation w/ center lead consultant Pain: None PO Intake: NPO Voiding: no voiding problems The patient was seen and examined this morning. Pt reports chest pain has resolved, and his shortness of breath has improved. Overnight he slept ok, but not well. After seeing Dr. Zuleta with cardiology, the patient is still not interested in going through a cardiac catheterization but that he would be open to medication management. He is largely concerned about getting home to his dog , which is being cared for by his . Dr. Hernández with GI has also seen the patient and had him on the board for endoscopy today until cardiology input. The decision was made to not undergo Endoscopy as prior workup for cardiac cath as the patient is ultimately looking to do minimal intervention. Additional Comments: Constitutional: No fever, sweats or chills Eyes: No diplopia, no worsening or blurred vision ENT: normal hearing, no trouble swallowing Respiratory: No cough, sputum, dyspnea at rest or on exertion Cardiovascular: No chest pain, tightness or palpitations Abdomen: No pain, nausea, vomiting, diarrhea or constipation Musculoskeletal: No joint pain, calf pain, swelling Neurologic: No weakness, numbness/tingling, or balance problems Psychiatric: No anxiety or depression Skin: No rash or itch Objective Vital Signs Date Time Temp Pulse Resp B/P Pulse Ox O2 Delivery O2 Flow Rate FiO2 10/02/16 06:15 37.0 86 20 94/43 94 10/02/16 05:30 36.9 82 16 121/62 95 10/02/16 04:43 37.0 80 18 117/51 92 10/02/16 04:13 37.0 69 16 107/54 92 10/02/16 04:00 93 Room Air 10/02/16 03:58 36.5 71 16 110/53 93 10/02/16 03:35 36.8 72 18 113/51 93 Room Air 10/02/16 01:15 36.9 71 18 107/50 95 10/02/16 00:32 36.9 79 20 97/53 94 10/01/16 23:59 95 Room Air 10/01/16 23:32 36.8 72 16 90/50 95 10/01/16 22:32 37.0 75 14 98/54 94 10/01/16 22:17 36.9 79 16 118/64 95 10/01/16 22:02 37.0 90 16 127/66 95 10/01/16 20:00 96 Room Air 10/01/16 19:20 37.1 84 18 106/65 96 Room Air 10/01/16 16:49 Room Air 10/01/16 16:00 Room Air 10/01/16 14:58 36.4 88 17 127/72 95 Room Air 10/01/16 14:26 79 127/72 95 10/01/16 14:13 87 17 95 10/01/16 14:01 131/69 10/01/16 13:43 96 18 93 10/01/16 13:30 131/70 10/01/16 13:19 93 10/01/16 13:13 87 22 99 10/01/16 13:00 130/70 10/01/16 12:48 122/63 10/01/16 12:13 90 18 97 10/01/16 12:01 156/83 10/01/16 11:43 77 22 95 10/01/16 11:40 95 Room Air 10/01/16 11:30 116/60 10/01/16 11:21 97 Room Air 10/01/16 11:21 97 Room Air 10/01/16 11:13 80 21 96 10/01/16 11:05 80 10/01/16 11:00 119/58 10/01/16 10:58 131/65 10/01/16 10:49 36.7 87 18 107/67 94 Room Air Physical Exam Notes: General Appearance: WD/WN, no apparent distress, + thin Head: normocephalic, atraumatic Eyes: PERRL, EOMI ENT: hearing grossly normal, pharynx normal Neck: supple, no JVD Respiratory/Chest: chest non-tender, no respiratory distress, no accessory muscle use, + pertinent finding (faint crackles at left base, otherwise clear throughout) Cardiovascular: regular rate, rhythm, no JVD, normal peripheral pulses, + systolic murmur (Grade II/V LSB) Abdomen/GI: normal bowel sounds, non tender, soft, no organomegaly Back: normal inspection, no CVA tenderness Extremities/Musculoskelatal: normal inspection, no calf tenderness, no pedal edema, + pertinent finding (dressing on Left forearm c/d/i) Neurologic/Psych: alert, normal mood/affect, oriented x 3 Skin: normal color, warm/dry Laboratory Results Last 24 Hours Test 10/01/16 11:10 10/01/16 11:14 10/01/16 17:57 10/01/16 20:13 White Blood Count 10.12 K/uL Red Blood Count 3.13 M/uL Hemoglobin 9.8 g/dL 9.0 g/dL Hematocrit 29.7 % 27.9 % Mean Corpuscular Volume 94.9 fL Mean Corpuscular Hemoglobin 31.3 pg Mean Corpuscular Hemoglobin Concent 33.0 g/dl RDW Standard Deviation 50.1 fL RDW Coefficient of Variation 14.6 % Platelet Count 257 K/uL Mean Platelet Volume 9.6 fL Prothrombin Time 10.6 SECONDS Prothromb Time International Ratio 1.0 Activated Partial Thromboplast Time 24.0 SECONDS Partial Thromboplastin Ratio 0.9 Sodium Level 143 mmol/L Potassium Level 4.5 mmol/L Chloride Level 110 mmol/L Carbon Dioxide Level 28 mmol/L Anion Gap 5.0 mmol/L Blood Urea Nitrogen 59 mg/dl Creatinine 1.20 mg/dl Est Creatinine Clear Calc Drug Dose 38.8 ml/min Estimated GFR () 62.6 Estimated GFR (Non- 54.0 BUN/Creatinine Ratio 49.3 Random Glucose 98 mg/dl Calcium Level 8.4 mg/dl Total Bilirubin 0.3 mg/dl Aspartate Amino Transf (AST/SGOT) 85 U/L Alanine Aminotransferase (ALT/SGPT) 21 U/L Alkaline Phosphatase 50 U/L Total Creatine Kinase 683 U/L Creatine Kinase MB 61.5 ng/ml Creatine Kinase MB Ratio 9.0 Total Protein 6.7 gm/dl Albumin 3.4 gm/dl Globulin 3.3 gm/dl Albumin/Globulin Ratio 1.0 Bedside Troponin I 17.020 ng/ml Troponin I 38.700 ng/ml Test 10/02/16 02:00 White Blood Count 7.51 K/uL Red Blood Count 2.89 M/uL Hemoglobin 9.0 g/dL Hematocrit 27.1 % Mean Corpuscular Volume 93.8 fL Mean Corpuscular Hemoglobin 31.1 pg Mean Corpuscular Hemoglobin Concent 33.2 g/dl Platelet Count 186 K/uL Mean Platelet Volume 8.8 fL Neutrophils (%) (Auto) 52.8 % Lymphocytes (%) (Auto) 32.1 % Monocytes (%) (Auto) 9.9 % Eosinophils (%) (Auto) 4.5 % Basophils (%) (Auto) 0.4 % Neutrophils # (Auto) 3.97 K/uL Lymphocytes # (Auto) 2.41 K/uL Monocytes # (Auto) 0.74 K/uL Eosinophils # (Auto) 0.34 K/uL Basophils # (Auto) 0.03 K/uL RDW Standard Deviation 49.7 fL RDW Coefficient of Variation 14.5 % Immature Granulocyte % (Auto) 0.3 % Immature Granulocyte # (Auto) 0.02 K/uL Sodium Level 145 mmol/L Potassium Level 4.0 mmol/L Chloride Level 112 mmol/L Carbon Dioxide Level 28 mmol/L Anion Gap 5.0 mmol/L Blood Urea Nitrogen 43 mg/dl Creatinine 1.10 mg/dl Est Creatinine Clear Calc Drug Dose 41.2 ml/min Estimated GFR () 69.6 Estimated GFR (Non- 60.0 BUN/Creatinine Ratio 39.3 Random Glucose 86 mg/dl Calcium Level 8.0 mg/dl Troponin I 47.800 ng/ml Triglycerides Level 105 mg/dl Cholesterol Level 124 mg/dl HDL Cholesterol 54 mg/dl LDL Cholesterol, Calculated 49 mg/dl VLDL Cholesterol, Calculated 21 mg/dl Cholesterol/HDL Ratio 2.3 Assessment and Plan This is an 85 yo M with PMHx of bladder and prostate cx, history of tobacco abuse x 67 years x 1/2 ppd, who presented to the ED after a worsening chest pain which began a few days ago, and reached a peak 10/10 last evening around 6- 7pm. NSTEMI - Admit to tele - cardiac biomarkers continued to elevate overnight, 17-->38-->47 - Overnight transfused 2 U PRBCs and hgb improved >10 due to NSTEMI and demand ischemia - Pt reports his sx have been alleviated: no sob, cp, weakness, fatigue. - Cards consulted: recommending asa, anticoagulation, beta blockade, statin therapy, and possible cath - at this time the patient is not interested in undergoing procedure involving heart catheterization. Appreciate cards recommendations. - Nitro prn and morphine sulfate prn for analgesia - Echo 2D ordered * -- Conclusions -- * Left ventricular systolic function is low normal. * Grade I diastolic dysfunction, (abnormal relaxation pattern). * There are regional wall motion abnormalities as specified. * Mild to moderate aortic regurgitation. * There is moderate mitral annular calcification. * There is moderate mitral regurgitation. * Right ventricular systolic pressure is normal. - QAM EKG ordered x 3 - CTA negative for acute PE GI bleed Demand ischemia secondary to GI bleed - Gastroenterology consulted- appreciate recs- EGD was cancelled as the patient was not interested in forgoing a cardiac cath and therefore GI bleed can be treated conservatively with PPI therapy since this is not an acute bleed. - Transfused 2 U PRBC and hgb is 10.3 on recheck - Will allow a heart healthy diet - Protonix bolus 40 mg IV BID Tobacco Use - Will order nicotine patch - Cessation encouraged Bladder cancer hx Prostate Cancer hx - Cont flomax daily DVT ppx: teds, scds CODE STATUS: DNR Disposition: From home, possible discharge tomorrow pending hgb stability
[2016-10-02] MEDS: CEROVITE ADV FORMULA TAB PO SCH (07:25)
[2016-10-02] MEDS: NICOTINE 7 MG/24 HR TDSY TD SCH (07:25)
[2016-10-02] MEDS ORDERED: ASPIRIN 81 MG ECTAB PO SCH (09:00)
[2016-10-02] MEDS ORDERED: CLOPIDOGREL BISULFATE 300 MG TAB PO STA (11:55)
[2016-10-02] MEDS ORDERED: ASPIRIN 81 MG ECTAB PO STA (11:55)
--- NOTE | 2016-10-02 12:08 | Progress Note ---
Progress Note Date of Service October 02, 2016. Progress Note Attending note: for progress note by Maranda Gonzalez Patient seen and examined by me on 10/02. Doing well, no chest pain, no melena, states that he is hungry. Reviewed labs, Troponin peaked in 40's, trending back down, Hb up to 10.3 after transfusing [address] units [address]iscuss[address] personally with Dr. Zuleta, ideally he needs cardiac catheterization but patient not interested, also, he would want an EGD prior to determine what interventions he could have. Dr. Hernández with GI would not want to perform EGD due to AK 30 hours ago. Says that we can start Aspirin and Plavix, no heparin. - NSTEMI: manage with Aspirin, Plavix and Lipitor, no heparin gtt, no beta blockade for now as BP just returned to normal patient refusing catheterization at this point - GI bleed with acute blood loss anemia: transfused two units, appropriate response up to 10.3 which is adequate with the AK continue Protonix gtt no plans for EGD currently with recent AK, may even defer to outpatient patient wants to go home but agrees to stay for further observation to make sure he remains stable if he would want to go it would be AMA updated son at the bedside
--- NOTE | 2016-10-02 12:19 | CARDIOLOGY PROGRESS NOTE ---
DATE: 10/02/2016 SUBJECTIVE: This morning Mr. Christopher claims to be feeling well. He was able to ambulate around the best twice with minimal symptoms. He states that he does feel mild soreness in the left precordium but this appeared to improve with ambulation. It is similar to the pain he experienced in the past but very mild in severity. He did not describe significant breathing difficulty or limiting dyspnea with ambulation. He denied any significant dizziness or lightheadedness. PHYSICAL EXAMINATION: GENERAL: He was alert and oriented. His mood and affect appeared normal. He answered all questions appropriately. CURRENT VITAL SIGNS: Include blood pressure of 126/77 with pulse of 89. LUNGS: Auscultation of his lungs revealed them to be clear with somewhat prolonged excursion and distant breath sounds, but no rales. CARDIAC: Revealed him to be in a regular rhythm. He did have a very soft holosystolic murmur appreciated. I reviewed the EKG performed this morning which did not reveal any significant change from last evening. LABORATORY STUDIES: Today included serial troponins with a peak of 47 at 2:00 a.m. this morning, now down to 38.5. Total CK at the time of admission was 683. Sodium this morning was 145, potassium was 4.0. Hemoglobin was 10.3. ASSESSMENT AND PLAN: 1. Non-ST elevation myocardial infarction: The cardiac marker trends are consistent with the patient's clinical presentation and an acute myocardial infarction just over 24 hours ago. The patient's echocardiogram revealed preserved left ventricular systolic function and only a suggestion of wall motion abnormality in inferolateral base. The patient continued to have some mild left chest discomfort but this is fairly chronic in nature and was not exacerbated with activity earlier today. It is very possible that he has had a completed infarct. My recommendation was for coronary angiography in order to evaluate his anatomy and perform intervention if required for what may be an unstable plaque. The patient is very hesitant to agree to any procedures and at this point is not agreeable to coronary angiography. I had an extensive discussion with the patient in the presence of his family on more than one occasion this morning regarding the risks of not undergoing a cardiac catheterization up to and including . The patient currently seems to be willing to accept that risk. There was some concern regarding anticoagulation for this patient with anemia and suspected gastrointestinal source. I had a discussion with the echo technologist regarding the use of aspirin and Plavix, and it seems reasonable to start that currently. Should the patient develop evidence of worsening bleeding or persistent anemia, these medications could be stopped. With respect to GI evaluation, an EGD and colonoscopy certainly seem appropriate; however, given the acute nature of his event and his current unwillingness to proceed with invasive testing, I think this can be safely deferred for several days. The patient reported that he would be compliant with medical therapy. He can be started on aspirin, Plavix, and high-dose atorvastatin. 2. Valvular heart disease. The patient is known to have both aortic and mitral regurgitation. These are of moderate severity. There is no left ventricular dysfunction and no symptoms. This can be followed longitudinally.
[2016-10-02] MEDS: ATORVASTATIN 40 MG TAB PO SCH (12:43)
[2016-10-02] MEDS ORDERED: NURSING VERBAL MED ORDER ONE (13:00)
[2016-10-02 14:37] LABS: HEMATOCRIT 30.5 % (42-52)
--- NOTE | 2016-10-02 18:55 | GASTROENTEROLOGY PROGRESS NOTE ---
DATE: 10/02/2016 HISTORY OF PRESENT ILLNESS: The patient was seen this afternoon and with his son in the room. The patient is feeling well without chest pain, shortness of breath. I had spoken Dr. Zuleta in mid morning today and after discussing the patient had initially refused catheterization the decision was made to consider an upper endoscopy and perhaps colonoscopy in 1-2 weeks once the acute cardiac event has stabilized. Use of aspirin and Plavix is reasonable and this can be monitored for GI bleeding. The rationale included that if there were no plans for catheterization and possible anticoagulation for the patient at the patient's decision, then urgent endoscopic examination would be imprudent. Empiric acid suppression and assessment for H. pylori by stool antigen to exclude an upper GI bleed is reasonable. CURRENT MEDICATIONS: Include pantoprazole, atorvastatin, multivitamins, nicotine patch, Xalatan, Flomax, acetaminophen, Zofran, nitroglycerin tablets sublingual p.r.n. LABORATORY STUDIES: Today show hemoglobin that is essentially stable. On admission, he was 9.8 and this drifted down to 9.0 and the patient received 2 units of packed red blood cells. His hemoglobin at 7:45 this morning was 10.3 and repeated 2:20 p.m. this afternoon was again 10.3. Serum chemistries do show evidence of elevated troponin levels that peaked at 47.8 and are now beginning to trend downward. BUN and creatinine were 43 and 1.1 on admission and he was 59 and 1.2. REVIEW OF SYSTEMS: Otherwise noncontributory. The patient denies currently any melena or bright red blood per rectum or hematemesis. PHYSICAL EXAMINATION: GENERAL: Today is unchanged. HEART: Normal S1, S2. LUNGS: Clear to auscultation. ABDOMEN: Soft, flat, nontender, nondistended with good bowel sounds. EXTREMITIES: Without clubbing, cyanosis or edema. RECTAL: Deferred at this time. IMPRESSION AND PLAN: I spoke with the patient this afternoon at approximately 4:00 p.m. and had a lengthy discussion with the patient and his son. It appears that approximately 1 hour ago, a decision was considered that the patient would be in favor of cardiac catheterization. However, I have not confirmed this with cardiology or the primary service. I also several minutes later discussed findings with the patient's other son and daughter in the hallway and there seems to be some confusion on all of these recommendations and I believe it would be prudent for the patient and the family to have a discussion with the care providers in order that a plan of care can be outlined. I will attempt to contact Dr. Zuleta to see if this can be clarified; however, I believe initially I will perform an upper endoscopy to assess for a potential source of gastrointestinal bleeding if the patient plans to undergo catheterization over the next couple days. Ideally, he should also undergo colonoscopy as he has not had one in the past and has a fluctuating bowel habits that sometimes require mineral oil. He also describes very dark stools at times. This will require a bowel preparation and obviously the stresses of bowel preparation and anesthesia need to be considered during this acute myocardial infarction. Nevertheless, if stent placement is also considered and performed, an anticoagulation is needed excluding higher risk bleeding lesions would be important. I will tentatively place the patient on for n.p.o. after midnight except for medications with the plan of doing an upper endoscopy tomorrow. At some point early next week colonoscopy if the patient continues to do well and if there is still consideration for a catheterization. If not, then both of these studies can be performed in 1-2 weeks once the patient has had an opportunity for healing. Hopefully, this decision can be addressed to provide timely care for the patient. All of their questions were answered. In the meantime, please continue proton pump inhibitor therapy and test stools for Helicobacter pylori antigen and treat if needed.
[2016-10-02 20:26] LABS: HEMATOCRIT 31.4 % (42-52)
[2016-10-02] MEDS: LATANOPROST 0.005% OP SOLN 2.5 ML BTL OP SCH (21:27)
[2016-10-02] MEDS: PANTOprazole INJ 40 MG in SYRINGE 0 ML IV SCH (21:27)
[2016-10-02] MEDS: TAMSULOSIN HCL 0.4 MG CAP PO SCH (21:27)
[2016-10-03 02:00] LABS: HEMATOCRIT 30.1 % (42-52)
[2016-10-03 04:43] VITALS: BP 110/60; PULSE 69; TEMP 37; O2SAT 93
[2016-10-03 07:12] LABS: BASO % 0.7 %; BASO ABS # 0.05 K/uL (0-0.2); COMPLETE YES; HEMATOCRIT 34.1 % (42-52); IG% 0.4 %; LYMPH % 24.5 %; MEAN CELL VOLUME 93.4 fL (80-100); MEAN CORPUSCULAR HGB CONC 33.1 g/dl (32-36); MEAN PLATELET VOLUME 9.7 fL (7.4-10.4); MONO % 11.4 %; PLATELET COUNT 228 K/uL (130-400); RED BLOOD COUNT 3.65 M/uL (4.7-6.1); WHITE BLOOD COUNT 7.36 K/uL (4.8-10.8)
--- NOTE | 2016-10-03 07:22 | Hospitalist Progress Note ---
Hospitalist Progress Note Date of Service October 03, 2016. Subjective Pt evaluation today including: conversation w/ patient, conversation w/ family , physical exam, chart review, lab review, review of studies Pain: left sided chest pain 2/10 PO Intake: NPO Voiding: no voiding problems The patient was seen and examined this morning. Pt has his son and daughter present at bedside. The patient and family are all in agreement that there is an EGD scheduled for today and a cardiac cath. The patient says that they convinced him last evening, but that ultimately he just wants to go home. He says his chest pain is basically resolved, is a 2/10 resting in bed. He has been up and walking without any shortness of breath, denies dyspnea at rest, no chest tightness or pressure. He denies dizziness or lightheadedness. He had a bowel movement this morning which was "black" and had "a very foul odor". He did not allow nursing to see or send sample for lab as he was embarrassed by it. ROS: 10 point ROS was obtained and is otherwise negative. Objective Vital Signs Date Time Temp Pulse Resp B/P Pulse Ox O2 Delivery O2 Flow Rate FiO2 10/03/16 04:43 37.0 69 18 110/60 93 Room Air 10/03/16 04:00 Room Air 10/02/16 23:59 Room Air 10/02/16 23:54 37.1 68 18 93/42 93 Room Air 10/02/16 20:00 Room Air 10/02/16 19:37 37.1 71 16 106/56 97 Room Air 10/02/16 16:01 36.5 83 18 151/74 93 Room Air 10/02/16 16:00 Room Air 10/02/16 12:00 Room Air 10/02/16 11:38 36.3 89 18 126/77 95 Room Air 10/02/16 08:00 Room Air 10/02/16 07:46 36.9 82 18 113/59 93 Room Air Physical Exam Notes: General Appearance: WD/WN, no apparent distress, + thin Head: normocephalic, atraumatic Eyes: PERRL, EOMI ENT: hearing grossly normal, pharynx normal Neck: supple, no JVD Respiratory/Chest: chest non-tender, no respiratory distress, no accessory muscle use, clear throughout Cardiovascular: regular rate, rhythm, no JVD, normal peripheral pulses, no MRGs Abdomen/GI: normal bowel sounds, non tender, soft, no organomegaly Back: normal inspection, no CVA tenderness Extremities/Musculoskelatal: normal inspection, no calf tenderness, no pedal edema, + pertinent finding (dressing on Left forearm c/d/i) Neurologic/Psych: alert, normal mood/affect, oriented x 3 Skin: normal color, warm/dry Laboratory Results Last 24 Hours Test 10/02/16 07:45 10/02/16 14:19 10/02/16 20:00 10/03/16 01:44 Hemoglobin 10.3 g/dL 10.3 g/dL 10.6 g/dL 10.1 g/dL Hematocrit 32.0 % 30.5 % 31.4 % 30.1 % Troponin I 38.500 ng/ml Test 10/03/16 06:57 White Blood Count 7.36 K/uL Red Blood Count 3.65 M/uL Hemoglobin 11.3 g/dL Hematocrit 34.1 % Mean Corpuscular Volume 93.4 fL Mean Corpuscular Hemoglobin 31.0 pg Mean Corpuscular Hemoglobin Concent 33.1 g/dl Platelet Count 228 K/uL Mean Platelet Volume 9.7 fL Neutrophils (%) (Auto) 57.0 % Lymphocytes (%) (Auto) 24.5 % Monocytes (%) (Auto) 11.4 % Eosinophils (%) (Auto) 6.0 % Basophils (%) (Auto) 0.7 % Neutrophils # (Auto) 4.20 K/uL Lymphocytes # (Auto) 1.80 K/uL Monocytes # (Auto) 0.84 K/uL Eosinophils # (Auto) 0.44 K/uL Basophils # (Auto) 0.05 K/uL RDW Standard Deviation 52.0 fL RDW Coefficient of Variation 15.3 % Immature Granulocyte % (Auto) 0.4 % Immature Granulocyte # (Auto) 0.03 K/uL Assessment and Plan This is an 85 yo M with PMHx of bladder and prostate cx, history of tobacco abuse x 67 years x 1/2 ppd, who presented to the ED after a worsening chest pain which began a few days ago, and reached a peak 10/10 last evening around 6- 7pm. NSTEMI - Admit to tele - cardiac biomarkers continued to elevate overnight, 17-->38-->47 - 10/01: transfused 2 U PRBCs and hgb improved >10 due to NSTEMI and demand ischemia - Cards consulted: recommending asa, anticoagulation, beta blockade, statin therapy, and possible cath -pt and family seem to be going back and forth between their decision, last evening the patient was agreeable to EGD and cardiac cath, and now again when interviewed alone by Dr. Zuleta says he really doesnt want invasive intervention including either study. At this time the patient has minimal cp, hgb stable >10, no sob, otherwise asymptomatic. GI could do outpatient EGD and colonoscopy if the patient truely does not want a cardiac cath. Will ask cards and GI and our team to meet with the patient together so a definitive plan is made. - Nitro prn and morphine sulfate prn for analgesia - Echo 2D ordered * -- Conclusions -- * Left ventricular systolic function is low normal. * Grade I diastolic dysfunction, (abnormal relaxation pattern). * There are regional wall motion abnormalities as specified. * Mild to moderate aortic regurgitation. * There is moderate mitral annular calcification. * There is moderate mitral regurgitation. * Right ventricular systolic pressure is normal. - QAM EKG ordered x 3 - CTA negative for acute PE GI bleed Demand ischemia secondary to GI bleed - Gastroenterology consulted- appreciate recs - H.pylori ordered per GI - Transfused 2 U PRBC and hgb is 10.3 on recheck - Will allow a heart healthy diet - Protonix bolus 40 mg IV BID Tobacco Use - Will order nicotine patch - Cessation encouraged Bladder cancer hx Prostate Cancer hx - Cont flomax daily DVT ppx: teds, scds CODE STATUS: DNR Disposition: From home, discharge unknown at present.
[2016-10-03 07:43] LABS: BUN/CREATININE RATIO 26.1 (10-20); CALCIUM 8.6 mg/dl (8.5-10.1); CREATININE 1.2 mg/dl (0.60-1.40); POTASSIUM 3.8 mmol/L (3.5-5.1)
[2016-10-03 08:03] VITALS: BP 115/63; PULSE 72; TEMP 36.9; O2SAT 96
[2016-10-03 08:26] LABS: HEMATOCRIT 32.7 % (42-52)
[2016-10-03] MEDS: NICOTINE 7 MG/24 HR TDSY TD SCH (09:00)
[2016-10-03] MEDS ORDERED: ASPIRIN 81 MG ECTAB PO SCH (10:15)
[2016-10-03] MEDS ORDERED: CLOPIDOGREL BISULFATE 75 MG TAB PO SCH (10:15)
[2016-10-03] MEDS: CEROVITE ADV FORMULA TAB PO SCH (11:38)
[2016-10-03] MEDS: PANTOprazole INJ 40 MG in SYRINGE 0 ML IV SCH (11:38)
[2016-10-03] MEDS: ATORVASTATIN 40 MG TAB PO SCH (11:38)
[2016-10-03] MEDS ORDERED: NTRSLP4 SL (11:52)
[2016-10-03] MEDS ORDERED: PANT40TA PO (11:52)
[2016-10-03] MEDS ORDERED: PLV75 PO (11:52)
[2016-10-03] MEDS ORDERED: LPT40 PO (11:52)
[2016-10-03] MEDS ORDERED: ASPEC81 PO (11:52)
--- NOTE | 2016-10-03 12:04 | Discharge Instructions ---
Discharge Instructions Date of Service October 03, 2016. Admission Reason for Admission: Elevated Troponin, Gi Bleed Discharge Discharge Diagnosis / Problem: NSTEMI (heart attack), GI bleed with blood loss anemia Discharge Goals Goal(s): Improve function, Improve disease control, Diagnostic testing (GI recommends outpatient EGD and colonoscopy in several weeks) Activity Recommendations Activity Limitations: resume your previous activity Exercise/Sports Limitations: until after follow-up appointment (no more than typical every day activities until seen by cardiology) May Resume Sexual Activity: after follow-up appointment Shower/Bathe: no limitations Driving or Machine Use: no limitations . Instructions / Follow-Up Instructions / Follow-Up Medications: - ASPIRIN and PLAVIX: take each of these every day to help prevent further heart attack, inhibits platelet function - LIPITOR: cholesterol medication that stabilizes plaques and proven to prevent future heart attacks, take every day, can cause muscle pain (common side effect) - PROTONIX: reduces acid production in stomach to treat potential upper GI source of bleeding, take twice a day for 4 weeks and then reduce to once a day and continue indefinitely - NITRO: take under the tongue as needed for chest pain, can repeat every 15 minutes for chest pain, if you take 3 tablets and still have pain, come to the hospital Acute heart attack (NSTEMI): evidenced by chest pain, rise and fall in troponin. Echocardiogram showed that left heart function low normal, mild impaired relaxation of heart. your vital signs are stable and no further serious chest pain ideally you should have heart catheterization but you have declined take aspirin, Plavix and Lipitor as prescribed you need to stop smoking please follow up with Dr. Lai in one week and then Dr. Zuleta in 2-3 weeks in the office GI bleed with anemia: blood counts have been stable and rising ever since 2 units transfused on admission take Protonix twice a day to decrease risk of further bleeding Dr. Hernández recommends both an EGD and colonoscopy as outpatient in several weeks once you have completely recovered from heart attack you can contact his office if you are interested in getting these procedures done, he will want you to see Dr. Zuleta prior to getting them done for heart clearance FOLLOW UP - Dr. Lai in one week, call for appointment - Dr. Zuleta in 2-3 weeks, call for appointment, - Dr. Inverso in 4 weeks for consideration of EGD and colonoscopy, Current Hospital Diet Patient's current hospital diet: AHA Diet (Heart Healthy) Discharge Diet Recommended Diet: AHA Diet (Heart Healthy) Procedures Procedures Performed: none Pending Studies Studies pending at discharge: no Laboratory Results Last Resulted CBC 10/03/16 06:57 Red Blood Count 3.65, Mean Corpuscular Volume 93.4, Mean Corpuscular Hemoglobin 31.0, Mean Corpuscular Hemoglobin Concent 33.1, Mean Platelet Volume 9.7, Neutrophils (%) (Auto) 57.0, Lymphocytes (%) (Auto) 24.5, Monocytes (%) (Auto) 11.4, Eosinophils (%) (Auto) 6.0, Basophils (%) (Auto) 0.7, Neutrophils # (Auto ) 4.20, Lymphocytes # (Auto) 1.80, Monocytes # (Auto) 0.84, Eosinophils # (Auto ) 0.44, Basophils # (Auto) 0.05 10/03/16 08:16 Last Resulted BMP 10/03/16 06:57 Lipid Panel Test 10/02/16 02:00 Range/Units Triglycerides Level 105 0-150 mg/dl Cholesterol Level 124 0-200 mg/dl HDL Cholesterol 54 mg/dl Cholesterol/HDL Ratio 2.3 LDL Cholesterol, Calculated 49 mg/dl Medical Emergencies . Who to Call and When: Medical Emergencies: If at any time you feel your situation is an emergency, please call 911 immediately. . Non-Emergent Contact Non-Emergency issues call your: Primary Care Provider, Web Architect, Jacquard Lace Weaver Call Non-Emergent contact if: you have any medication questions . Past History Medical & Surgical History: (1) Non-ST elevation NE (NSTEMI) (2) GI bleed (3) Anemia . "Provider Documentation" section prepared by Vasiliy Swanson. . VTE Core Measure Inpt VTE Proph given/why not?: Irene Patel, [facility] [place] Drug Monitoring Program Search Results: no issues identified
[2016-10-03 12:07] VITALS: BP 108/68; PULSE 70; TEMP 36.6; O2SAT 98
[2016-10-03 12:14] VITALS: BP 108/68; PULSE 70; TEMP 36.6; O2SAT 98
--- NOTE | 2016-10-03 12:24 | Discharge Summary ---
Discharge Summary Date of Service October 03, 2016. Discharge Summary Admission Date: October 01, 2016 at 13:21 Discharge Date: October 03, 2016 Discharge Disposition: Home Principal Diagnosis: NSTEMI Problems/Secondary Diagnoses: NSTEMI, bladder and prostate cx, history of tobacco abuse x 67 years x 1/2 ppd, Immunizations: Have You Had Influenza Vaccine: No History of Tetanus Vaccine?: No History of Pneumococcal: No History of Hepatitis B Vaccine: No Procedures: CHEST ONE VIEW PORTABLE 10/01/16 IMPRESSION: 1. Pulmonary emphysema 2. Cardiomegaly. No evidence of failure. 3. Right basilar airspace opacities, atelectatic versus inflammatory CT ANGIOGRAM OF THE CHEST 10/01/16 IMPRESSION: 1. No CT evidence of acute pulmonary embolism 2. Cardiomegaly and coronary artery calcifications 3. Severe emphysema 4. Bilateral pleural plaques 5. Scattered subcentimeter pulmonary nodules, the largest of which measures 5 mm and is located within the left upper lobe 6. Bilateral dependent pulmonary airspace opacities, atelectasis versus pneumonia. Clinical correlation and follow-up is recommended Consultations: Gastroenterology Cardiology Medication Reconciliation New Medications: Pantoprazole (Protonix) 40 Mg Tab 40 MG PO BID for 30 Days, #60 TABS 3 Refills Aspirin (Aspirin EC Low Dose) 81 Mg Ectab 81 MG PO QAM, #30 TABS 3 Refills Atorvastatin (Atorvastatin Calcium) 40 Mg Tab 40 MG PO QAM, #30 TAB 3 Refills Clopidogrel Bisulfate (Clopidogrel) 75 Mg Tab 75 MG PO QAM, #30 TAB 2 Refills Nitroglycerin (Nitrostat) 0.4 Mg/1 Tab Subl 0.4 MG SL UD PRN for Chest Pain, #100 TABS 2 Refills Continued Medications: Acetaminophen (Tylenol Arthritis Ext Rel) 650 Mg Cplt 650 MG PO QPM, CAP Latanoprost (Xalatan 0.005% Oph Kimberli) 0.005 % Kimberli 1 DROPS OP HS, ML Ocuvite Preservision (Ocuvite Preservision) 1 Tab Tab 1 TAB PO DAILY, TAB Tamsulosin Hcl (Flomax) 0.4 Mg Cap 0.4 MG PO QPM, CAP [Bladder Cancer Drug] () 1 DOSE PO 2XWK Discharge Exam Subjective Pt evaluation today including: conversation w/ patient, conversation w/ family , physical exam, chart review, lab review, review of studies Pain: left sided chest pain 2/10 PO Intake: NPO Voiding: no voiding problems The patient was seen and examined this morning. Pt has his son and daughter present at bedside. The patient and family are all in agreement that there is an EGD scheduled for today and a cardiac cath. The patient says that they convinced him last evening, but that ultimately he just wants to go home. He says his chest pain is basically resolved, is a 2/10 resting in bed. He has been up and walking without any shortness of breath, denies dyspnea at rest, no chest tightness or pressure. He denies dizziness or lightheadedness. He had a bowel movement this morning which was "black" and had "a very foul odor". He did not allow nursing to see or send sample for lab as he was embarrassed by it. ROS: 10 point ROS was obtained and is otherwise negative. Objective Vital Signs Date Time Temp Pulse Resp B/P Pulse Ox O2 Delivery O2 Flow Rate FiO2 10/03/16 04:43 37.0 69 18 110/60 93 Room Air 10/03/16 04:00 Room Air 10/02/16 23:59 Room Air 10/02/16 23:54 37.1 68 18 93/42 93 Room Air 10/02/16 20:00 Room Air 10/02/16 19:37 37.1 71 16 106/56 97 Room Air 10/02/16 16:01 36.5 83 18 151/74 93 Room Air 10/02/16 16:00 Room Air 10/02/16 12:00 Room Air 10/02/16 11:38 36.3 89 18 126/77 95 Room Air 10/02/16 08:00 Room Air 10/02/16 07:46 36.9 82 18 113/59 93 Room Air Physical Exam Notes: General Appearance: WD/WN, no apparent distress, + thin Head: normocephalic, atraumatic Eyes: PERRL, EOMI ENT: hearing grossly normal, pharynx normal Neck: supple, no JVD Respiratory/Chest: chest non-tender, no respiratory distress, no accessory muscle use, clear throughout Cardiovascular: regular rate, rhythm, no JVD, normal peripheral pulses, no MRGs Abdomen/GI: normal bowel sounds, non tender, soft, no organomegaly Back: normal inspection, no CVA tenderness Extremities/Musculoskelatal: normal inspection, no calf tenderness, no pedal edema, + pertinent finding (dressing on Left forearm c/d/i) Neurologic/Psych: alert, normal mood/affect, oriented x 3 Skin: normal color, warm/dry Hospital Course History of Present Illness Source: patient, family This is an 85 yo M with PMHx of bladder and prostate cx, history of tobacco abuse x 67 years x 1/2 ppd, who presented to the ED after a worsening chest pain which began a few days ago, and reached a peak 10/10 last evening around 6- 7pm. The patient is here with his and son. The patient himself is a poor historian. His chest pain has been ongoing and dull for almost 2 weeks per his report, left chest wall, nonradiating, not relieved with tylenol. He notes increase lightheadedness and some dizziness with going from sit to stand but states this isn't necessarily new, it was just worse last night. He reports he was recently treated for a cold/bronchitis which lasted about 4 weeks. Since that time he has been slightly more short of breath, weak and decreased tolerance with walking. Pt is unable to specify exactly when his pain started, worsened, or other symptoms worsened. He states he has lost his appetite recently, and that he does not drink much of anything besides for coffee. He has dark tarry bowels and this has been going on for over a month now, he denies any BRBPR. He admits to bouts of diarrhea and constipation recently. He admits to nausea this morning, vomited yesterday. Pt notes he has vomited once per week for the last several months. He does not wear supplemental O2 or use anything for walking assistance. He admits to falling twice last night, but denies hitting his head or LOC. He was seen by his PCP this morning and was instructed to come to the ED. Here in the ED trop-I is significantly elevated at 17, hgb=9.8, Cr. 1.2 and around baseline. EKG was completed showing no ST wave inversion, likely old RBBB. A CTA chest was completed and negative for acute PE. Physical Exam Vital Signs Date Time Temp Pulse Resp B/P Pulse Ox O2 Delivery O2 Flow Rate FiO2 10/01/16 11:40 95 Room Air 10/01/16 11:21 97 Room Air 10/01/16 11:21 97 Room Air 10/01/16 11:05 80 10/01/16 10:49 36.7 87 18 107/67 94 Room Air General Appearance: WD/WN, no apparent distress, + obese Head: normocephalic, atraumatic Eyes: PERRL, EOMI ENT: hearing grossly normal, pharynx normal Neck: supple, no JVD Respiratory/Chest: chest non-tender, no respiratory distress, no accessory muscle use, + pertinent finding (faint crackles at left base, otherwise clear throughout) Cardiovascular: regular rate, rhythm, no JVD, normal peripheral pulses, + systolic murmur (Grade II/V LSB) Abdomen/GI: normal bowel sounds, non tender, soft, no organomegaly Back: normal inspection, no CVA tenderness Extremities/Musculoskelatal: normal inspection, no calf tenderness, no pedal edema, + pertinent finding (dressing on Left forearm c/d/i after sustained fall. ) Neurologic/Psych: alert, normal mood/affect, oriented x 3 Skin: normal color, warm/dry Hospital Course: This is an 85 yo M with PMHx of bladder and prostate cx, history of tobacco abuse x 67 years x 1/2 ppd, who presented to the ED after a worsening chest pain which began a few days ago, and reached a peak 10/10 on 09/30 round 6-7pm, he presented to the ED the following morning on 10/01. PT was diagnosed with NSTEMI. The patient was seen by gastroenterology for GI bleed since his outpatient hgb was 14s and it had dropped down to 9.8. He was transfused 2 U PRBCs for hgb=9.8 with acute coronary symptoms at time of admission and was started on protonix injections. Cardiology was consulted for possible need for cardiac catheterization. ECHO was obtained showing left heart function low normal, mild impaired relaxation of heart. After long discussion held between consulting services, patient and family members, it was elected not to undergo any invasive procedures as the patient declined. He was agreeable to medical management, so therapy with pradaxa, aspirin 81 mg, and statin was initiated. The patient will need follow up with Dr. Zuleta in 2-3 weeks. Follow up was recommended with GI for outpatient EGD and colonoscopy but they will need cardiology clearance prior to any procedure. Pt was stable for discharge to home. NSTEMI - Admit to tele - cardiac biomarkers continued to elevate overnight, 17-->38-->47 - 10/01: transfused 2 U PRBCs and hgb improved >10 due to NSTEMI and demand ischemia - Cards consulted: recommending asa, anticoagulation, beta blockade, statin therapy, and possible cath -pt and family seem to be going back and forth between their decision, last evening the patient was agreeable to EGD and cardiac cath, and now again when interviewed alone by Dr. Zuleta says he really doesnt want invasive intervention including either study. At this time the patient has minimal cp, hgb stable >10, no sob, otherwise asymptomatic. GI could do outpatient EGD and colonoscopy if the patient truely does not want a cardiac cath. Will ask cards and GI and our team to meet with the patient together so a definitive plan is made. - Nitro prn and morphine sulfate prn for analgesia - Echo 2D ordered * -- Conclusions -- * Left ventricular systolic function is low normal. * Grade I diastolic dysfunction, (abnormal relaxation pattern). * There are regional wall motion abnormalities as specified. * Mild to moderate aortic regurgitation. * There is moderate mitral annular calcification. * There is moderate mitral regurgitation. * Right ventricular systolic pressure is normal. - QAM EKG ordered x 3 - CTA negative for acute PE GI bleed Demand ischemia secondary to GI bleed - Gastroenterology consulted- appreciate recs - H.pylori was not obtained as the pt was discharged prior to ability to collect - Transfused 2 U PRBC and hgb is 10.3 on recheck - Will allow a heart healthy diet - Protonix bolus 40 mg IV BID Tobacco Use - Will order nicotine patch - Cessation strongly encouraged Bladder cancer hx Prostate Cancer hx - Cont flomax daily DVT ppx: teds, scds CODE STATUS: DNR Disposition: From home, discharge unknown at present. Total Time Spent: Greater than 30 minutes This includes examination of the patient, discharge planning, medication reconciliation, and communication with other providers. Discharge Instructions Please refer to the electronic Patient Visit Report (Discharge Instructions) for additional information. Follow-Up Dr. Lai in one week, call for appointment Dr. Zuleta in 2-3 weeks, call for appointment, Dr. Hernández in 4 weeks for consideration of EGD and colonoscopy, Additional Copies To Sunny Lai M.D.
[2016-12-28] MEDS ORDERED: RXNS5 PO (11:00)
[2016-12-28] MEDS ORDERED: ONDA4TAB10 SL (11:00)
[2016-12-29] MEDS ORDERED: DRGTP12 TD (09:49)
[2016-12-29] MEDS ORDERED: NYSS5 PO (09:49)
[2016-12-29] MEDS ORDERED: VLTG EXT (09:49)
[2016-12-29] MEDS ORDERED: ATV/1 PO (09:49)
== END 2016-10-03 13:15 | disposition home or self-care (01) | DRG 377 ==
LOC: ENRESERVDT → ENRESERVTM → C.EDB 10:45 → EEVIPCON 13:21 → C.2T 13:21
PROVIDERS: ADMIT Internal Medicine; ATTEND Internal Medicine
DX: K92.1 Melena (principal); I21.4 Non-ST elevation (NSTEMI) myocardial infarction; D62 Acute posthemorrhagic anemia; I08.0 Rheumatic disorders of both mitral and aortic valves; F17.200 Nicotine dependence, unspecified, uncomplicated; I25.10 Atherosclerotic heart disease of native coronary artery without angina pectoris; C80.1 Malignant (primary) neoplasm, unspecified; C67.9 Malignant neoplasm of bladder, unspecified; Z92.3 Personal history of irradiation

== ENCOUNTER → 2016-10-08 | Outpatient (CLI) | payer OTHER ==
[~2016-10-08] MED LIST changes: +ASPEC81 PO; +ATV/1 PO; +BICA50TA2 PO; +DRGTP12 TD; -EYE OPB; -FLM4 PO; +LATA0.5S OP; +LPT40 PO; +MULT-190 PO; -MULT-506 PO; +NTRSLP4 SL; +NYSS5 PO; +ONDA4TAB10 SL; +PANT40TA PO; +PLV75 PO; +RXNS5 PO; +TAMS0.4C38 PO; -VINEGAR PO; +VLTG EXT; +[UNRECOGNIZED DRUG - REMARK] PO
[2016-10-08 12:21] LABS: HEMATOCRIT 36.6 % (42-52); MEAN CELL VOLUME 96.1 fL (80-100); MEAN CORPUSCULAR HEMOGLOBIN 30.2 pg (25-34); MEAN CORPUSCULAR HGB CONC 31.4 g/dl (32-36); MEAN PLATELET VOLUME 10.2 fL (7.4-10.4); PLATELET COUNT 313 K/uL (130-400); RED BLOOD COUNT 3.81 M/uL (4.7-6.1); WHITE BLOOD COUNT 6.85 K/uL (4.8-10.8)
[2016-10-08 12:56] LABS: BLOOD UREA NITROGEN 23 mg/dl (7-18); BUN/CREATININE RATIO 19.4 (10-20); CALCIUM 9.4 mg/dl (8.5-10.1); CARBON DIOXIDE 28 mmol/L (21-32); CHLORIDE 108 mmol/L (98-107); GLUCOSE 91 mg/dl (70-99); POTASSIUM 4.4 mmol/L (3.5-5.1); SODIUM 141 mmol/L (136-145)
== END | disposition home or self-care (01) ==
LOC: C.LABPVFM 10:11
PROVIDERS: ATTEND Family Medicine
DX: D64.9 Anemia, unspecified (principal); N18.3 Chronic kidney disease, stage 3 (moderate)

== ENCOUNTER → 2016-12-17 | Outpatient (CLI) | payer OTHER ==
[2016-12-17 12:13] LABS: BASO % 0.7 %; BASO ABS # 0.05 K/uL (0-0.2); COMPLETE YES; EOS % 3.4 %; HEMATOCRIT 39.1 % (42-52); IG% 0.1 %; LYMPH % 25.7 %; LYMPH ABS # 1.86 K/uL (1.2-3.4); MEAN CELL VOLUME 94.9 fL (80-100); MEAN CORPUSCULAR HEMOGLOBIN 31.1 pg (25-34); MEAN CORPUSCULAR HGB CONC 32.7 g/dl (32-36); MEAN PLATELET VOLUME 10.3 fL (7.4-10.4); MONO % 8.4 %; NEUT % 61.7 %; PLATELET COUNT 257 K/uL (130-400); RED BLOOD COUNT 4.12 M/uL (4.7-6.1); WHITE BLOOD COUNT 7.25 K/uL (4.8-10.8)
== END | disposition home or self-care (01) ==
LOC: C.LABPVFM 10:46
PROVIDERS: ATTEND Family Medicine
DX: D64.9 Anemia, unspecified (principal)

== ENCOUNTER → 2016-12-22 | Outpatient (CLI) | payer OTHER ==
[2016-12-22 18:41] LABS: MAGNESIUM 2.3 mg/dl (1.8-2.4)
--- NOTE | 2016-12-26 13:52 | CODING QUERY MEDICAL NECESSITY ---
SUPPORTING DIAGNOSIS NEEDED A supporting diagnosis is required for the test/procedure performed on this patient in order for us to be reimbursed by the patient's insurance. Please provide a supporting diagnosis for the following test/procedure listed below next to the test name along with your signature. *If there is no additional diagnosis for this patient that would support the following test/procedure please document that below next to the test/procedure. Test(s)/Procedure(s) that require a supporting diagnosis: * VITAMIN D, 25-HYDROXY DIAGNOSIS: * VITAMIN B12 DIAGNOSIS: Provider Signature: Date: Thank you Alicia Singh [employer] Information Management Once completed, please kindly fax back to [phone] For questions please call [phone]
== END | disposition home or self-care (01) ==
LOC: C.LABPVFM 14:20
PROVIDERS: ATTEND Family Medicine
DX: R29.898 Other symptoms and signs involving the musculoskeletal system (principal); R79.89 Other specified abnormal findings of blood chemistry; M51.36 Other intervertebral disc degeneration, lumbar region

== ENCOUNTER 2016-12-25 13:05 | Observation (INO) | payer OTHER ==
[~2016-12-25] VITALS: Ht 180.3 cm; Wt 66.2 kg
[~2016-12-25 13:05] MED LIST changes: -ATV/1 PO; -BICA50TA2 PO; -DRGTP12 TD; -NYSS5 PO; -ONDA4TAB10 SL; -RXNS5 PO; -VLTG EXT
[2016-12-25 13:52] LABS: ISTAT HEMOGLOBIN 14.6 g/dl (14.0-18.0); ISTAT IONIZED CALCIUM 1.1 mmol/l (1.12-1.32)
[2016-12-25] MEDS ORDERED: BICA50TA2 PO (13:52)
[2016-12-25] MEDS ORDERED: ATV/1 PO (13:52)
--- NOTE | 2016-12-25 13:53 | DIAGNOSTIC IMAGING REPORT ---
CHEST ONE VIEW PORTABLE HISTORY: 86 years-old Male acute altered mental status with concern for pneumonia. COMPARISON: Chest radiograph and chest CT 10/01/2016 TECHNIQUE: Portable upright AP view of the chest FINDINGS: Cardiac silhouette is again enlarged. There is atherosclerosis of the aorta. Mild pleural thickening/scarring left lung apex redemonstrated. Emphysematous changes are noted without pneumothorax or pleural effusion. Hazy left basilar opacities in a subsegmental distribution suggests atelectasis. No lobar airspace consolidation. Bones are intact. IMPRESSION: Emphysema with hazy left basilar opacity suggesting atelectasis. No lobar airspace consolidation. The above report was generated using voice recognition software. It may contain grammatical, syntax or spelling errors. Electronically signed by: Antonio Osborne M.D. 12/25/2016 1:52 PM Dictated Date/Time: 12/25/2016 1:50 PM
[2016-12-25 13:54] LABS: BASO % 0.2 %; BASO ABS # 0.02 K/uL (0-0.2); COMPLETE YES; EOS % 0.3 %; HEMATOCRIT 41.7 % (42-52); IG% 0.3 %; LYMPH % 15.1 %; LYMPH ABS # 1.71 K/uL (1.2-3.4); MEAN CELL VOLUME 93.5 fL (80-100); MEAN CORPUSCULAR HEMOGLOBIN 32.1 pg (25-34); MEAN CORPUSCULAR HGB CONC 34.3 g/dl (32-36); MEAN PLATELET VOLUME 9.9 fL (7.4-10.4); MONO % 12.7 %; NEUT % 71.4 %; PLATELET COUNT 185 K/uL (130-400); RED BLOOD COUNT 4.46 M/uL (4.7-6.1); WHITE BLOOD COUNT 11.33 K/uL (4.8-10.8)
[2016-12-25 14:05] LABS: PARTIAL THROMBOPLASTIN RATIO 1.1; PROTHROMBIN TIME (PATIENT) 10.7 SECONDS (9.0-12.0)
[2016-12-25 14:13] LABS: BUN/CREATININE RATIO 29.8 (10-20); CALCIUM 9.3 mg/dl (8.5-10.1); CREATININE 1.2 mg/dl (0.60-1.40); POTASSIUM 4.1 mmol/L (3.5-5.1)
[2016-12-25 14:14] LABS: URINE APPEARANCE CLEAR (CLEAR); URINE BILIRUBIN NEG (NEG); URINE COLOR YELLOW; URINE NITRITE NEG (NEG); URINE PH 5.5 (4.5-7.5); URINE SPECIFIC GRAVITY 1.019 (1.000-1.030); UROBILINOGEN NEG (NEG)
[2016-12-25 14:28] LABS: MANUAL MICROSCOPIC REQUIRED? NO; REVIEW REQ? NO
--- NOTE | 2016-12-25 14:42 | DIAGNOSTIC IMAGING REPORT ---
CT OF THE HEAD WITHOUT CONTRAST CLINICAL HISTORY: Altered mental status. COMPARISON STUDY: No previous studies for comparison. CT DOSE: 614.27 mGy.cm TECHNIQUE: Helical axial images of the head were obtained without IV contrast. Automated exposure control was utilized for the study. A dose lowering technique was utilized adhering to the principles of ALARA. FINDINGS: There is a large mixed attenuation right subdural hematoma which contains a fluid fluid level consistent with hematocrit effect. This measures 2.5 cm in thickness. There is a moderate sized hyperdense left subdural hematoma that measures 1.6 cm in thickness. There is 5 mm of leftward midline shift with mild compression of the right lateral ventricle. There is mild sulcal effacement. There is no calvarial fracture. There are postoperative findings within the sinuses. Moderate mucosal thickening of the ethmoid sinuses is noted. IMPRESSION: 1. Large mixed attenuation right subdural hematoma and moderate sized hyperdense left subdural hematoma. The right subdural hematoma may be subacute or acute on chronic while the left subdural hematoma is likely acute to subacute. 5 mm of leftward midline shift with mild compression of the right lateral ventricle. Associated sulcal effacement. Findings discussed with Dr. Soto at time of dictation. 2. No calvarial fracture. Electronically signed by: Pelon Parsons M.D. 12/25/2016 2:41 PM Dictated Date/Time: 12/25/2016 2:34 PM
[2016-12-25] MEDS ORDERED: LORAZEPAM 2 MG/ML 1 ML VIAL IV PRN (17:00)
[2016-12-25] MEDS ORDERED: ONDANSETRON INJ 2 MG/ML 2 ML VIAL IV PRN (17:00)
[2016-12-25] MEDS ORDERED: SODIUM CHLORIDE 0.9% 1000ML 1,000 ML IV SCH (17:00)
--- NOTE | 2016-12-25 17:36 | History and Physical ---
History & Physical Date & Time of Service: Dec 25, 2016 at 16:49 Chief Complaint: Altered Mental Status Primary Care Physician: Sunny Lai M.D. History of Present Illness Source: patient, family ( and son at bedside), clinic records, hospital records This is an 86 y/o male with a history of prostate cancer and BPH, bladder cancer , NSTEMI in September 2016, COPD, CKD stage III, anemia and myasthenia gravis who presented to the ED on 12/25 with altered mental status. The patient overdosed on his Ativan at home about 2 days ago, taking approximately 45 pills, each 1 mg. The family had also found a suicide note. The patient has attempted suicide in the past. The patient had altered mental status with decreased responsiveness. Per family, the patient did seem to perk up yesterday, but today he was again more lethargic and unable to respond. The family denies any specific complaints from the patient, but his states that he was not one to complain anyway. Unable to obtain ROS from the patient due to mental status. The patient was found to have bilateral subdural hematomas and midline shift on head CT. The family does not want any interventions and want to take him home on hospice. After speaking with case management in the ED, it was decided that the patient will be admitted for observation on comfort measures while the family makes arrangements for home hospice. Past Medical/Surgical History Medical Problems: (1) Bladder cancer Status: Chronic (2) Prostate CA Status: Chronic BPH h/o NSTEMI COPD CKD stage III Anemia Myasthenia gravis Family History Bladder cancer Heart disease Hypertension Social History Smoking Status: Current Every Day Smoker (6-7 cigarettes/day) Smokeless Tobacco Use: No Alcohol Use: socially (wine) Drug Use: none Marital Status: Housing status: lives with significant other Occupational Status: retired Immunizations History of Influenza Vaccine: No History of Tetanus Vaccine?: No History of Pneumococcal: No History of Hepatitis B Vaccine: No Multi-Drug Resistant Organisms History of MDRO: No Allergies Coded Allergies: No Known Allergies (Unverified , 10/01/16) Home Medications Scheduled Aspirin (Aspirin EC Low Dose), 81 MG PO QAM Bicalutamide (Casodex), 50 MG PO DAILY Clopidogrel Bisulfate (Clopidogrel), 75 MG PO QAM Latanoprost (Xalatan 0.005% Oph Kimberli), 1 DROPS OP HS Tamsulosin Hcl (Flomax), 0.4 MG PO QPM Scheduled PRN Lorazepam (Ativan), 0.5 MG PO HS PRN for Insomnia Nitroglycerin (Nitrostat), 0.4 MG SL UD PRN for Chest Pain Review of Systems Unable to obtain ROS from patient due to mental status. Physical Exam Vital Signs Date Time Temp Pulse Resp B/P (MAP) Pulse Ox O2 Delivery O2 Flow Rate FiO2 12/25/16 16:01 87 16 153/74 95 Room Air 12/25/16 14:51 87 16 147/62 92 Room Air 12/25/16 13:33 36.5 102 20 162/85 95 Room Air 12/25/16 13:18 99 General appearance: Well-developed, well-nourished, no apparent distress Head: Normocephalic, atraumatic Eyes: +Exam limited by pt condition. Normal inspection, PERRL ENT: +Dry oral mucosa. Normal ENT inspection, hearing grossly normal, pharynx normal Neck: Supple, no JVD, trachea midline Respiratory/Chest: Lungs clear to auscultation, normal breath sounds, no respiratory distress Cardiovascular: +Systolic murmur. Regular rate & rhythm, no gallop Abdomen/GI: Normal bowel sounds, non-tender, soft Extremities/Musculoskeletal: Normal inspection, no calf tenderness, no pedal edema Neurological/Psych: +Awake but lethargic. Pt able to follow most simple commands but unable to respond. Unable to assess mood/affect or orientation. Skin: Normal color, warm/dry, no rash Diagnostics Laboratory Results Results Past 24 Hours Test 12/25/16 13:30 12/25/16 13:35 12/25/16 13:42 Range/Units Urine Color YELLOW Urine Appearance CLEAR CLEAR Urine pH 5.5 4.5-7.5 Urine Specific Pingree 1.019 1.000-1.030 Urine Protein 2+ NEG Urine Glucose (UA) NEG NEG Urine Ketones NEG NEG Urine Occult Blood 2+ NEG Urine Nitrite NEG NEG Urine Bilirubin NEG NEG Urine Urobilinogen NEG NEG Urine Leukocyte Esterase NEG NEG Urine WBC (Auto) 1-5 0-5 /hpf Urine RBC (Auto) 0-4 0-4 /hpf Urine Hyaline Casts (Auto) 1-5 0-5 /lpf Urine Epithelial Cells (Auto) 10-20 0-5 /lpf Urine Bacteria (Auto) NEG NEG White Blood Count 11.33 4.8-10.8 K/uL Red Blood Count 4.46 4.7-6.1 M/uL Hemoglobin 14.3 14.0-18.0 g/dL Hematocrit 41.7 42-52 % Mean Corpuscular Volume 93.5 80-100 fL Mean Corpuscular Hemoglobin 32.1 25-34 pg Mean Corpuscular Hemoglobin Concent 34.3 32-36 g/dl Platelet Count 185 130-400 K/uL Mean Platelet Volume 9.9 7.4-10.4 fL Neutrophils (%) (Auto) 71.4 % Lymphocytes (%) (Auto) 15.1 % Monocytes (%) (Auto) 12.7 % Eosinophils (%) (Auto) 0.3 % Basophils (%) (Auto) 0.2 % Neutrophils # (Auto) 8.10 1.4-6.5 K/uL Lymphocytes # (Auto) 1.71 1.2-3.4 K/uL Monocytes # (Auto) 1.44 0.11-0.59 K/uL Eosinophils # (Auto) 0.03 0-0.5 K/uL Basophils # (Auto) 0.02 0-0.2 K/uL RDW Standard Deviation 48.1 36.4-46.3 fL RDW Coefficient of Variation 14.1 11.5-14.5 % Immature Granulocyte % (Auto) 0.3 % Immature Granulocyte # (Auto) 0.03 0.00-0.02 K/uL Prothrombin Time 10.7 9.0-12.0 SECONDS Prothromb Time International Ratio 1.0 0.9-1.1 Activated Partial Thromboplast Time 28.0 21.0-31.0 SECONDS Partial Thromboplastin Ratio 1.1 Sodium Level 140 136-145 mmol/L Potassium Level 4.1 3.5-5.1 mmol/L Chloride Level 107 98-107 mmol/L Carbon Dioxide Level 26 21-32 mmol/L Anion Gap 7.0 16.0 16-25 mmol/L Blood Urea Nitrogen 36 7-18 mg/dl Creatinine 1.20 0.60-1.40 mg/dl Est Creatinine Clear Calc Drug Dose 39.8 ml/min Estimated GFR () 62.2 Estimated GFR (Non- 53.7 BUN/Creatinine Ratio 29.8 10-20 Random Glucose 123 70-99 mg/dl Calcium Level 9.3 8.5-10.1 mg/dl Total Bilirubin 0.5 0.2-1 mg/dl Direct Bilirubin 0.1 0-0.2 mg/dl Aspartate Amino Transf (AST/SGOT) 103 15-37 U/L Alanine Aminotransferase (ALT/SGPT) 41 12-78 U/L Alkaline Phosphatase 67 45-117 U/L Total Protein 7.8 6.4-8.2 gm/dl Albumin 3.6 3.4-5.0 gm/dl Bedside Hemoglobin 14.6 14.0-18.0 g/dl Bedside Hematocrit 43 42-52 % Bedside Sodium 139 135-144 mEq/L Bedside Potassium 4.1 3.3-5.0 mEq/L Bedside Chloride 104 101-112 mEq/L Bedside Total CO2 23 24-31 mEq/l Bedside Blood Urea Nitrogen 36 7-18 mg/dl Bedside Creatinine 1.0 0.6-1.3 mg/dl Bedside Glucose (other) 124 70-99 mg/dl Bedside Ionized Calcium (Ramya) 1.10 1.12-1.32 mmol/l Bedside Troponin I 0.250 0-0.045 ng/ml Diagnostic Radiology Reviewed the following studies and agree with interpretation as follows: Patient Name: BRITTON STALEY Unit Number: [id number] Dictated: 12/25/161433 Transcribed: 12/25/161433 Printed Date/Time: [~ rep prt dt]/[~ rep prt tm] [~ rep ct labl] - [~ rep ct ivnm] [facility] [place] [address] Dictated: 12/25/161433 Transcribed: 12/25/161433 Printed Date/Time: [~ rep prt dt]/[~ rep prt tm] [~ rep ct labl] - [~ rep ct ivnm] Patient: BRITTON STALEY Address1: [address] Rec: [id number] Address2: Acct ID: [id number] [facility] Zip: [place] [address] Date: 1930 Sex: M Room/Bed: Ref Phy: Sunny Lai M.D. SC: CHASTITY Att Phy: Report #: [id number] Aubree Phy: Sunny Lai M.D. Test: HWO Admit Phy: Agency Development Manager: ALBERTO Interpreting Phy: Pelon Parsons MD Diagnosis: ALTERED MENTAL STATUS Ordering Phy: Sky Soto MD Service Date: 12/25/16 Admit Date: 12/25/16 MNE: PWRSCRIBE CONF: DICTATED BY: Pelon Parsons MD]] CC: Sky Soto M.D. Woolley, Paul O., M.D. Endcc: [~ rep ct add3]] CT OF THE HEAD WITHOUT CONTRAST CLINICAL HISTORY: Altered mental status. COMPARISON STUDY: No previous studies for comparison. CT DOSE: 614.27 mGy.cm TECHNIQUE: Helical axial images of the head were obtained without IV contrast. Automated exposure control was utilized for the study. A dose lowering technique was utilized adhering to the principles of ALARA. FINDINGS: There is a large mixed attenuation right subdural hematoma which contains a fluid fluid level consistent with hematocrit effect. This measures 2.5 cm in thickness. There is a moderate sized hyperdense left subdural hematoma that measures 1.6 cm in thickness. There is 5 mm of leftward midline shift with mild compression of the right lateral ventricle. There is mild sulcal effacement. There is no calvarial fracture. There are postoperative findings within the sinuses. Moderate mucosal thickening of the ethmoid sinuses is noted. IMPRESSION: 1. Large mixed attenuation right subdural hematoma and moderate sized hyperdense left subdural hematoma. The right subdural hematoma may be subacute or acute on chronic while the left subdural hematoma is likely acute to subacute. 5 mm of leftward midline shift with mild compression of the right lateral ventricle. Associated sulcal effacement. Findings discussed with Dr. Soto at time of dictation. 2. No calvarial fracture. Electronically signed by: Pelon Parsons M.D. 12/25/2016 2:41 PM Dictated Date/Time: 12/25/2016 2:34 PM The status of this report is Signed. Draft = Not yet reviewed or approved by Radiologist. Signed = Reviewed and approved by Radiologist. <AttendingPhy></AttendingPhy> <FamilyPhy>Sunny Lai M.D.</FamilyPhy> < PrimaryPhy>Sunny Lai M.D.</PrimaryPhy> <UnitNumber>[id number]</UnitNumber > <VisitNumber>[id number]</VisitNumber> <PatientName>BRITTON STALEY</ PatientName> <DateOfBirth>1930</DateOfBirth> <Location>[facility]</Location> < ServiceDate>12/25/16</ServiceDate> <MNE>ESINDI</MNE> <OrderingPhy>Sky Soto MD</OrderingPhy> <OrderingPhyMNE>f rep ord dr mitchell</OrderingPhyMNE> < DictatingPhyMNE>f rep dict dr mitchell</DictatingPhyMNE> <CCListMNE>f rep ct mne</ CCListMNE> <AdmittingPhyMNE>f pt admit dr mitchell</AdmittingPhyMNE> <AttendingPhyMNE >f pt attend dr mitchell</AttendingPhyMNE> <ConsultingPhyMNE>f pt consult dr mitchell</ConsultingPhyMNE> <FamilyPhyMNE>f pt fam dr mitchell</FamilyPhyMNE> <OtherPhyMNE>f pt other dr mitchell</OtherPhyMNE> < PrimaryPhyMNE>f pt prim care dr mitchell</PrimaryPhyMNE> <ReferringPhyMNE>f pt referring dr mitchell</ReferringPhyMNE> Patient Name: BRITTON STALEY Unit Number: [id number] Dictated: 12/25/161349 Transcribed: 12/25/161349 JRB Printed Date/Time: [~ rep prt dt]/[~ rep prt tm] [~ rep ct labl] - [~ rep ct ivnm] [facility] [place] [place] [address] Dictated: 12/25/161349 Transcribed: 12/25/161349 JRB Printed Date/Time: [~ rep prt dt]/[~ rep prt tm] [~ rep ct labl] - [~ rep ct ivnm] Patient: BRITTON STALEY Address1: [address] [place] [address] Med Rec: [id number] Address2: Acct ID: [id number] [facility] Zip: [place] [address] Date: 1930 Sex: M Room/Bed: Ref Phy: Sunny Lai M.D. SC: CHASTITY Att Phy: Report #: [id number] Aubree Phy: Sunny Lai M.D. Test: CXR1P Admit Phy: Agency Development Manager: AVANI Interpreting Phy: Scout Osborne D.O. Diagnosis: ALTERED MENTAL STATUS Ordering Phy: Sky Soto MD Service Date: 12/25/16 Admit Date: 12/25/16 MNE: PWRSCRIBE CONF: DICTATED BY: Scout Osborne D.O.]] CC: Sky Soto M.D. Woolley, Paul O., M.D. Endcc: [~ rep ct add3]] CHEST ONE VIEW PORTABLE HISTORY: 86 years-old Male acute altered mental status with concern for pneumonia. COMPARISON: Chest radiograph and chest CT 10/01/2016 TECHNIQUE: Portable upright AP view of the chest FINDINGS: Cardiac silhouette is again enlarged. There is atherosclerosis of the aorta. Mild pleural thickening/scarring left lung apex redemonstrated. Emphysematous changes are noted without pneumothorax or pleural effusion. Hazy left basilar opacities in a subsegmental distribution suggests atelectasis. No lobar airspace consolidation. Bones are intact. IMPRESSION: Emphysema with hazy left basilar opacity suggesting atelectasis. No lobar airspace consolidation. The above report was generated using voice recognition software. It may contain grammatical, syntax or spelling errors. Electronically signed by: Antonio Osborne M.D. 12/25/2016 1:52 PM Dictated Date/Time: 12/25/2016 1:50 PM The status of this report is Signed. Draft = Not yet reviewed or approved by Radiologist. Signed = Reviewed and approved by Radiologist. <AttendingPhy></AttendingPhy> <FamilyPhy>Sunny Lai M.D.</FamilyPhy> < PrimaryPhy>Sunny Lai M.D.</PrimaryPhy> <UnitNumber>[id number]</UnitNumber > <VisitNumber>[id number]</VisitNumber> <PatientName>BRITTON STALEY</ PatientName> <DateOfBirth>1930</DateOfBirth> <Location>[facility]</Location> < ServiceDate>12/25/16</ServiceDate> <MNE>ESINDI</MNE> <OrderingPhy>Sky Soto MD</OrderingPhy> <OrderingPhyMNE>f rep ord dr mitchell</OrderingPhyMNE> < DictatingPhyMNE>f rep dict dr mitchell</DictatingPhyMNE> <CCListMNE>f rep ct paula</ CCListMNE> <AdmittingPhyMNE>f pt admit dr mitchell</AdmittingPhyMNE> <AttendingPhyMNE >f pt attend dr mitchell</AttendingPhyMNE> <ConsultingPhyMNE>f pt consult dr mitchell</ConsultingPhyMNE> <FamilyPhyMNE>f pt fam dr mitchell</FamilyPhyMNE> <OtherPhyMNE>f pt other dr mitchell</OtherPhyMNE> < PrimaryPhyMNE>f pt prim care dr mitchell</PrimaryPhyMNE> <ReferringPhyMNE>f pt referring dr mitchell</ReferringPhyMNE> EKG Reviewed EKG and agree with interpretation as follows: 96 bpm, NSR with PACs 86 bpm, NSR with PACs Impression Assessment and Plan 86 y/o male with a history of prostate cancer and BPH, bladder cancer, NSTEMI in September 2016, COPD, CKD stage III, anemia and myasthenia gravis who presented to the ED on 12/25 with altered mental status. Pt afebrile, VSS on arrival. Head CT shows large right subdural hematoma and moderate left subdural hematoma, subacute to acute. 5 mm of leftward midline shift with mild compression of right lateral ventricle. CXR shows emphysema and hazy left basilar opacity suggesting atelectasis. EKG shows no ischemic changes. Subdural hematomas, AMS, comfort measures only -Admit to med/surg for observation -Family does not want any intervention, want to take pt home for home hospice -Pt admitted for observation for comfort measures and palliative care consult until arrangements at home are made -Palliative care consulted -representative phlebotomy services consulted -NSS at 100 cc/hr -Morphine 1 mg IV q30m prn pain or dyspnea -Ativan 0.5 mg IV q2h prn anxiety/agitation -Scopolamine patch 1.5 mg TD q72h prn excessive secretions Code Status -Level V, DO NOT RESUSCITATE Resident Physician Supervision Note: I was present with Toshia RIVERS during the history and exam. I discussed the case with the PA and agree with the findings and plan as documented in the note. Any exceptions or clarifications are listed here: 86 y/o M CAD - recent [place], CKD, Myasthenia gravis - depression with prior suicide attempts Pt intentionally overdosed on Ativan leaving a note - found poorly responsive - workup in ER inc CT revealed B/L subdural hematomas We are instructed by the family to proceed with comfort measures only OE Unresponsive S1,2 R CTA - poor effort ND No CCE P: Comfort measures - consult palliative - look for transfer to hospice tomorrow Discussed in detail with family Documented By: Hernan Iglesias Level of Care Med/Surg Resuscitation Status DO NOT RESUSCITATE VTE Prophylaxis Given or contraindicated: Treatment not indicated (comfort measures only, subdural hematomas)
--- NOTE | 2016-12-25 17:50 | EMERGENCY ROOM VISIT NOTE ---
History Report prepared by Artemio: Nubia Neff Under the Supervision of: Dr. Sky Soto M.D. First contact with patient: 13:13 Chief Complaint: ALTERED MENTAL STATUS Stated Complaint: ALTERED MENTAL STATUS History of Present Illness The patient is a 86 year old male who presents to the Emergency Room with complaints of a constant altered mental status for the past 24 hours. Family suspects that the patient took 45 1mg tablets of Ativan about 48 hours ago. Initially he "came out of it" and was more alert, but family states that he has been altered, lethargic, and sleeping for the past 24 hours. The patient did not admit to taking the medication, but family noticed that all of the Ativan was missing. The patient left a suicide note for the family. He has tried to kill himself in the past. Family states that a few years ago he tried to shoot himself. They deny any suicide attempts since then. Family states that the patient has been depressed lately. He had an WA in September and after that time he was given numerous medications including Plavix and Lipitor. The Lipitor made the patient feel weak and he had difficulty ambulating. This limited the activities that the patient was able to do and he was no longer able to do his woodworking. This made the patient very depressed. He went to his PCP's office last week and was told to stop taking the Lipitor. His weakness had started to improve and he had a little more energy. His noted that the patient's weakness seems to be worse on the left side. The HPI is limited secondary to the patient's AMS. Source of History: patient History Limited By: AMS Onset: 2 days ago Position: other (global) Quality: other (altered mental status) Timing: constant Modifying Factors (Worsening): other (medication OD) Associated Symptoms: + weakness Review of Systems ROS is limited secondary to the patient's AMS. Past Medical & Surgical Medical Problems: (1) Altered mental status (2) Bladder cancer (3) Comfort measures only status (4) Elevated troponin (5) GI bleed (6) Prostate CA (7) Subdural hematoma Family History Non-pertinent due to advanced age. Social History Smoking Status: Current Every Day Smoker Drug Use: none Marital Status: Housing Status: lives with family Occupation Status: retired Current/Historical Medications Scheduled Aspirin (Aspirin EC Low Dose), 81 MG PO QAM Bicalutamide (Casodex), 50 MG PO DAILY Clopidogrel Bisulfate (Clopidogrel), 75 MG PO QAM Latanoprost (Xalatan 0.005% Oph Kimberli), 1 DROPS OP HS Tamsulosin Hcl (Flomax), 0.4 MG PO QPM Scheduled PRN Lorazepam (Ativan), 0.5 MG PO HS PRN for Insomnia Nitroglycerin (Nitrostat), 0.4 MG SL UD PRN for Chest Pain Allergies Coded Allergies: No Known Allergies (Unverified , 10/01/16) Physical Exam Vital Signs Date Time Temp Pulse Resp B/P (MAP) Pulse Ox O2 Delivery O2 Flow Rate FiO2 12/25/16 17:18 93 12/25/16 16:01 87 16 153/74 95 Room Air 12/25/16 14:51 87 16 147/62 92 Room Air 12/25/16 13:33 36.5 102 20 162/85 95 Room Air 12/25/16 13:18 99 Physical Exam Constitutional: Vital signs reviewed. Eyes: Pupils are equal round reactive to light. Conjunctiva are noninjected. ENT: Pharynx is clear without erythema or exudate. Mucous membranes are moist. Neck supple without meningeal signs. Respiratory: Clear to auscultation bilaterally. Breath sounds are equal bilaterally. Cardiovascular: Regular rate and rhythm. No rubs or gallops. GI: Soft, nondistended and nontender. Bowel sounds are present. Musculoskeletal: No peripheral edema. No lower extremity tenderness. Integumentary: No cyanosis. Neurological: The patient is awake and follows some commands. Can answer some simple yes and no questions. He is able to lift both arms. He is able to plantar flex both feet. Psychiatric: Unable to assess. Medical Decision & Procedures ER Provider Diagnostic Interpretation: A repeat ECG reveals a NSR at 86, no acute ischemia, no ectopy, some baseline artifact. Radiology results as stated below per my review and the radiologist's interpretation: CT OF THE HEAD WITHOUT CONTRAST CLINICAL HISTORY: Altered mental status. COMPARISON STUDY: No previous studies for comparison. CT DOSE: 614.27 mGy.cm TECHNIQUE: Helical axial images of the head were obtained without IV contrast. Automated exposure control was utilized for the study. A dose lowering technique was utilized adhering to the principles of ALARA. FINDINGS: There is a large mixed attenuation right subdural hematoma which contains a fluid fluid level consistent with hematocrit effect. This measures 2.5 cm in thickness. There is a moderate sized hyperdense left subdural hematoma that measures 1.6 cm in thickness. There is 5 mm of leftward midline shift with mild compression of the right lateral ventricle. There is mild sulcal effacement. There is no calvarial fracture. There are postoperative findings within the sinuses. Moderate mucosal thickening of the ethmoid sinuses is noted. IMPRESSION: 1. Large mixed attenuation right subdural hematoma and moderate sized hyperdense left subdural hematoma. The right subdural hematoma may be subacute or acute on chronic while the left subdural hematoma is likely acute to subacute. 5 mm of leftward midline shift with mild compression of the right lateral ventricle. Associated sulcal effacement. Findings discussed with Dr. Soto at time of dictation. 2. No calvarial fracture. Electronically signed by: Pelon Parsons M.D. 12/25/2016 2:41 PM Dictated Date/Time: 12/25/2016 2:34 PM CHEST ONE VIEW PORTABLE HISTORY: 86 years-old Male acute altered mental status with concern for pneumonia. COMPARISON: Chest radiograph and chest CT 10/01/2016 TECHNIQUE: Portable upright AP view of the chest FINDINGS: Cardiac silhouette is again enlarged. There is atherosclerosis of the aorta. Mild pleural thickening/scarring left lung apex redemonstrated. Emphysematous changes are noted without pneumothorax or pleural effusion. Hazy left basilar opacities in a subsegmental distribution suggests atelectasis. No lobar airspace consolidation. Bones are intact. IMPRESSION: Emphysema with hazy left basilar opacity suggesting atelectasis. No lobar airspace consolidation. The above report was generated using voice recognition software. It may contain grammatical, syntax or spelling errors. Electronically signed by: Antonio Osborne M.D. 12/25/2016 1:52 PM Dictated Date/Time: 12/25/2016 1:50 PM Laboratory Results 12/25/16 13:35 Red Blood Count 4.46, Mean Corpuscular Volume 93.5, Mean Corpuscular Hemoglobin 32.1, Mean Corpuscular Hemoglobin Concent 34.3, Mean Platelet Volume 9.9, Neutrophils (%) (Auto) 71.4, Lymphocytes (%) (Auto) 15.1, Monocytes (%) (Auto) 12.7, Eosinophils (%) (Auto) 0.3, Basophils (%) (Auto) 0.2, Neutrophils # (Auto ) 8.10, Lymphocytes # (Auto) 1.71, Monocytes # (Auto) 1.44, Eosinophils # (Auto ) 0.03, Basophils # (Auto) 0.02 12/25/16 13:35 Test 12/25/16 13:30 12/25/16 13:35 12/25/16 13:42 Urine Color YELLOW Urine Appearance CLEAR (CLEAR) Urine pH 5.5 (4.5-7.5) Urine Specific [place] 1.019 (1.000-1.030) Urine Protein 2+ (NEG) Urine Glucose (UA) NEG (NEG) Urine Ketones NEG (NEG) Urine Occult Blood 2+ (NEG) Urine Nitrite NEG (NEG) Urine Bilirubin NEG (NEG) Urine Urobilinogen NEG (NEG) Urine Leukocyte Esterase NEG (NEG) Urine WBC (Auto) 1-5 /hpf (0-5) Urine RBC (Auto) 0-4 /hpf (0-4) Urine Hyaline Casts (Auto) 1-5 /lpf (0-5) Urine Epithelial Cells (Auto) 10-20 /lpf (0-5) Urine Bacteria (Auto) NEG (NEG) White Blood Count 11.33 K/uL (4.8-10.8) Red Blood Count 4.46 M/uL (4.7-6.1) Hemoglobin 14.3 g/dL (14.0-18.0) Hematocrit 41.7 % (42-52) Mean Corpuscular Volume 93.5 fL (80-100) Mean Corpuscular Hemoglobin 32.1 pg (25-34) Mean Corpuscular Hemoglobin Concent 34.3 g/dl (32-36) Platelet Count 185 K/uL (130-400) Mean Platelet Volume 9.9 fL (7.4-10.4) Neutrophils (%) (Auto) 71.4 % Lymphocytes (%) (Auto) 15.1 % Monocytes (%) (Auto) 12.7 % Eosinophils (%) (Auto) 0.3 % Basophils (%) (Auto) 0.2 % Neutrophils # (Auto) 8.10 K/uL (1.4-6.5) Lymphocytes # (Auto) 1.71 K/uL (1.2-3.4) Monocytes # (Auto) 1.44 K/uL (0.11-0.59) Eosinophils # (Auto) 0.03 K/uL (0-0.5) Basophils # (Auto) 0.02 K/uL (0-0.2) RDW Standard Deviation 48.1 fL (36.4-46.3) RDW Coefficient of Variation 14.1 % (11.5-14.5) Immature Granulocyte % (Auto) 0.3 % Immature Granulocyte # (Auto) 0.03 K/uL (0.00-0.02) Prothrombin Time 10.7 SECONDS (9.0-12.0) Prothromb Time International Ratio 1.0 (0.9-1.1) Activated Partial Thromboplast Time 28.0 SECONDS (21.0-31.0) Partial Thromboplastin Ratio 1.1 Est Creatinine Clear Calc Drug Dose 39.8 ml/min Estimated GFR () 62.2 Estimated GFR (Non- 53.7 BUN/Creatinine Ratio 29.8 (10-20) Calcium Level 9.3 mg/dl (8.5-10.1) Total Bilirubin 0.5 mg/dl (0.2-1) Direct Bilirubin 0.1 mg/dl (0-0.2) Aspartate Amino Transf (AST/SGOT) 103 U/L (15-37) Alanine Aminotransferase (ALT/SGPT) 41 U/L (12-78) Alkaline Phosphatase 67 U/L (45-117) Total Protein 7.8 gm/dl (6.4-8.2) Albumin 3.6 gm/dl (3.4-5.0) Bedside Hemoglobin 14.6 g/dl (14.0-18.0) Bedside Hematocrit 43 % (42-52) Bedside Sodium 139 mEq/L (135-144) Bedside Potassium 4.1 mEq/L (3.3-5.0) Bedside Chloride 104 mEq/L (101-112) Bedside Total CO2 23 mEq/l (24-31) Anion Gap 16.0 mmol/L (16-25) Bedside Blood Urea Nitrogen 36 mg/dl (7-18) Bedside Creatinine 1.0 mg/dl (0.6-1.3) Bedside Glucose (other) 124 mg/dl (70-99) Bedside Ionized Calcium (Ramya) 1.10 mmol/l (1.12-1.32) Bedside Troponin I 0.250 ng/ml (0-0.045) Laboratory results as reviewed by me. ECG Indication: altered mental status Rate (beats per minute): 96 Rhythm: normal sinus Findings: other (low voltage QRS; limited due to motion artifact) ED Course 1313: The patient was evaluated in room C7. A complete history and physical exam was performed. 1358: The patient was complaining of chest pain. A repeat ECG did not show any acute ischemic changes and chest pain resolved spontaneously. 1359: The patient's family has arrived and additional history was obtained. 1431: I discussed the patient's radiology results with Dr. Parsons, the radiologist. 1433: I reevaluated the patient and updated his family on his results. I spoke with his and she says that the patient has advanced directives and does not want any heroic measures. She does not want the patient transferred to [facility] for neurology follow-up. 1505: I spoke with Dr. Iglesias. We discussed the patients case. The patient will be evaluated by the [facility] for further management. 1510: At this time I spoke with the patient's daughter, Jenelle Gonzalez. She is his POA. She agrees that the patient should not be transferred to [facility] and does not want any intervention. She will talk to the behavioral health case manager about how to proceed and whether in-patient or hospice care would be most appropriate. I answered all pertaining questions that she had. She expressed understanding and verbalized agreement. 1620: The patient's POA decided to keep the patient in the hospital here for further management. Medical Decision This is an 86-year-old male who presents with altered mental status. Differential diagnosis includes overdose, suicide attempt, metabolic derangement , intracranial hemorrhage, CVA, cardiac. I did perform a limited focused review of portions of the patient's old chart on the electronic medical record. The patient was admitted in September for an NSTEMI. He was found to have anemia and a GI bleed. He was discharged home on Pradaxa and aspirin. I did evaluate the patient as noted above. The patient is presenting with altered mental status. I did obtain history from his family who are at the bedside. Apparently he tried to kill himself by overdosing on his Ativan. He has been depressed recently due to his declining health. There is no history of trauma or fever. They state the patient is not on Pradaxa and only takes aspirin and Lasix. IV access was established. The patient was placed on a continuous manager monitoring. I did order and personally review the patient's 12- lead EKG and chest x-ray as described above. I did order and review the patient 's blood work as noted in the electronic medical record. His troponin is slightly elevated. While in the emergency department he complained chest pain to his . Repeat 12-lead EKG was obtained which was nondiagnostic. When asked about his chest pain he replied that it was gone. I did order a CT of the head. I did review the images myself as well as the radiology report as described above. He does have bilateral subdural hematomas which are subacute. I did discuss the test results with the patient's family including his daughter, Jenelle Cagle, who is his healthcare proxy and power of civil attorney. She also discussed the findings with her brothers. They stated that they would not want him transferred or to have any acute intervention regarding his subdurals. They do understand these are life threatening illnesses. She states that according to her father's prior wishes he would not if wanted anything done. They only want comfort care. I did discuss the case with the behavioral health case manager and hospitalist. After exploring options the patient will be hospitalized here and arrangements will be made for further care as an outpatient. Medication Reconcilliation Current Medication List: was personally reviewed by me Blood Pressure Screening Patient's blood pressure: Elevated blood pressure Blood pressure disposition: Referred to PCP Consults Time Called: 1431 Consulting Physician: Dr. Parsons Returned Call: [phone] I discussed the patient's radiology results with Dr. Parsons, the radiologist. Additional Consults: Time Called: 144 Consulted Physician: Dr. Iglesias Returned Call: [phone] Additional Comments: I spoke with Dr. Iglesias. We discussed the patients case. The patient will be evaluated by the [facility] for further management. Impression Primary Impression: Benzodiazepine overdose Additional Impressions: Bilateral subdural hematomas Acute chest pain Elevated troponin Suicide attempt by drug ingestion Scribe Attestation The scribe's documentation has been prepared under my direct and personally reviewed by me in its entirety. I confirm that the note above accurately reflects all work, treatment, procedures, and medical decision making performed by me. Departure Information Dispostion Being Evaluated By Hospitalist Sunny Blake M.D. (PCP) Patient Instructions My [facility] Problem Qualifiers Primary Impression: Benzodiazepine overdose Encounter type: initial encounter Injury intent: intentional self-harm Qualified Codes: T42.4X2A - Poisoning by benzodiazepines, intentional self-harm , initial encounter Additional Impressions: Suicide attempt by drug ingestion Encounter type: initial encounter Qualified Codes: T50.902A - Poisoning by unspecified drugs, medicaments and biological substances, intentional self-harm , initial encounter
[2016-12-25 18:13] VITALS: BP 151/100; PULSE 106; TEMP 36.8; O2SAT 91
[2016-12-25] MEDS ORDERED: LORAZEPAM INJ 0.5 MG in SYRINGE 0.75 ML IV PRN (18:15)
[2016-12-25] MEDS ORDERED: IV FLUIDS COMPLETED PRN (18:45)
[2016-12-25 19:46] VITALS: Ht 180.3 cm; Wt 66.2 kg
[2016-12-25] MEDS: MoRPHine SULFATE 2 MG/ML CARP IV PRN (21:18)
[2016-12-25] MEDS: SCOPOLAMINE 1.5 MG TDSY TD PRN (21:23)
[2016-12-25 22:24] VITALS: BP 171/70; PULSE 103; TEMP 36.6; O2SAT 94
[2016-12-26] MEDS ORDERED: NURSING VERBAL MED ORDER ONE
[2016-12-26] MEDS: CHECK SCOPOLAMINE PATCH PLACEMENT SCH ×4 (00:12→23:32)
[2016-12-26] MEDS: MoRPHine SULFATE 2 MG/ML CARP IV PRN ×4 (00:47→15:19)
--- NOTE | 2016-12-26 14:36 | Hospitalist Progress Note ---
Hospitalist Progress Note Date of Service Dec 26, 2016. Subjective Pt evaluation today including: conversation w/ family, physical exam, chart review, lab review, review of studies, conversation w/ data management consultant (Palliative Care), review of inpatient medication list Voiding: clemente catheter in place Patient seen and evaluated. Patient is unable to contribute to exam. Updated sons and at bedside. Plan for comfort measures only with home hospice. Palliative met with family and executive secretary social welfare helping to arrange for transition home. Patient looks comfortable. Nursing staff reports patient did complain of CP this morning. When awake patient does ask for food per family and they have been doing applesauce. Did allow to feedings if asking. Additional Comments: Unable to obtain due to patient mentation Medications Current Inpatient Medications Medications (Trade) Dose Ordered Sig/Eric Route Start Time Stop Time Status Last Admin Dose Admin Ondansetron HCl (Zofran Inj) 4 mg Q6H PRN IV 12/25/16 17:00 01/24/17 16:59 Lorazepam (Ativan Inj) 0.5 mg Q2H PRN IV 12/25/16 17:00 01/24/17 16:59 Scopolamine (Transderm-Scop Patch) 1.5 mg Q72H PRN TD 12/25/16 17:00 01/24/17 16:59 12/25/16 21:23 1.5 MG Miscellaneous Information (Check Scopolamine Patch Placement) 1 ea QS N/A 12/26/16 00:00 01/25/17 00:00 12/26/16 08:25 1 EA Morphine Sulfate (MoRPHine SULFATE INJ) 1 mg Q30M PRN IV 12/25/16 17:00 01/08/17 16:59 12/26/16 08:48 1 MG Lorazepam 0.5 mg/ Syringe 1 ml @ 1 mls/min Q2H PRN IV 12/25/16 18:15 01/24/17 18:14 Miscellaneous (Iv Fluids Completed) 1 ea PRN PRN N/A 12/25/16 18:45 12/25/17 18:44 Objective Vital Signs Date Time Temp Pulse Resp B/P (MAP) Pulse Ox O2 Delivery O2 Flow Rate FiO2 12/26/16 08:00 Room Air 12/26/16 01:05 Room Air 12/25/16 22:24 36.6 103 22 171/70 (103) 94 Room Air 12/25/16 20:00 Room Air 12/25/16 19:46 Room Air 12/25/16 18:13 36.8 106 20 151/100 (117) 91 Room Air 12/25/16 17:53 107 20 176/107 95 12/25/16 17:18 93 12/25/16 16:01 87 16 153/74 95 Room Air 12/25/16 14:51 87 16 147/62 92 Room Air Physical Exam General Appearance: no apparent distress, + thin Respiratory/Chest: lungs clear, no respiratory distress, no accessory muscle use Cardiovascular: regular rate, rhythm, no gallop, no murmur Abdomen: normal bowel sounds Neurologic/Psychiatric: + pertinent finding (obtunded) Skin: normal color, warm/dry Diagnostic Results Current Inpatient Medications Medications (Trade) Dose Ordered Sig/Eric Route Start Time Stop Time Status Last Admin Dose Admin Ondansetron HCl (Zofran Inj) 4 mg Q6H PRN IV 12/25/16 17:00 01/24/17 16:59 Lorazepam (Ativan Inj) 0.5 mg Q2H PRN IV 12/25/16 17:00 01/24/17 16:59 Scopolamine (Transderm-Scop Patch) 1.5 mg Q72H PRN TD 12/25/16 17:00 01/24/17 16:59 12/25/16 21:23 1.5 MG Miscellaneous Information (Check Scopolamine Patch Placement) 1 ea QS N/A 12/26/16 00:00 01/25/17 00:00 12/26/16 08:25 1 EA Morphine Sulfate (MoRPHine SULFATE INJ) 1 mg Q30M PRN IV 12/25/16 17:00 01/08/17 16:59 12/26/16 08:48 1 MG Lorazepam 0.5 mg/ Syringe 1 ml @ 1 mls/min Q2H PRN IV 12/25/16 18:15 01/24/17 18:14 Miscellaneous (Iv Fluids Completed) 1 ea PRN PRN N/A 12/25/16 18:45 12/25/17 18:44 Assessment and Plan Mr. Christopher is an 86 y/o with PMHx of Prostate CA, BPH, Bladder CA, NSTEMI (May) , COPD, CKD Stage III, Anemia, and Myasthenia Gravis who presents due to intentional overdose of Ativan in attempts for suicide. Head CT significant for bilateral subdural hematomas with midline shift. Suspected Intentional Benzodiazepine Overdose for Suicide: Depression - No toxicology ran - family reports all pills were gone and patient left suicide note Bilateral Subdural Hematomas with Midline Shift: Altered Mental Status - Family request for no intervention and to be placed comfort measures only Comfort Measures Only: - Keep Clemente - can be D/Cd with this in place - Stop unnecessary fluids and medications - Morphine IV PRN - can convert to Roxanol for transition to Hospice - Scopolamine patch for secretions - Ativan PRN - If patient is alert enough and requesting food he may comfort feed Code Status: DO NOT RESUSCITATE Disposition: - Patient can be D/C'd when arrangements for Hospice and personal caregivers established - Palliative and [facility] following - discussed with both Discharge planning: home with Hospice
--- NOTE | 2016-12-26 14:42 | Palliative Care Consultation ---
Consultation Date of Consultation: Dec 26, 2016. Requesting Physician: Susan Jameson PA-C Attending Physician: Ashley Borrero PA-C Reason for Consultation: Hospice/comfort care History of Present Illness This 86 year old male patient with a PMH of prostate cancer and BPH, bladder cancer, NSTEMI in September 2016, COPD, CKD stage III, anemia and myasthenia gravis, presented to the ED last night with c/o altered mental status. Two days ago, patient left a suicide note and attempted suicide by taking 45 pills of lorazepam. The day before arrival he did "perk up," but then the next day was essentially unresponsive so the family decided to bring him in. CT of the head revealed right subdural hematoma with 5mm leftward midline shift. The decision was made by the family according to the patient's wishes for comfort measures only. Family would like to take patient home with hospice. Palliative care consulted to coordinate. I met with the patient's family: -Vinita, sons- Karl and Je, daughter/ POA- Jenelle. They confirmed the goal is for home with hospice, no further medical interventions unrelated to comfort. Son, Karl, believes that his father' s turning point in which he "gave up" came after he became weak from Lipitor and lost his mobility. Since then, he has been depressed and is ready to . The patient's is able to provide most of the patient's care but will need someone there at night. manager integrity was in room with me and provided private pay caregiver list to the family. Patient is awake, smiling and answering appropriately to some questions. Pleasantly confused. Stated he is in no pain or discomfort. Family reports he occasionally has pain in his right shoulder when being turned/repositioned. Limited ROS due to mental status. He is able to take in some soft things such as jello. Past Medical/Surgical History Medical History: prostate cancer and BPH bladder cancer NSTEMI in September 2016 COPD CKD stage III anemia myasthenia gravis Social History Smoking Status: Current Every Day Smoker History of Alcohol Use: No Drug Use: none Marital Status: Housing Status: lives with significant other Occupation Status: retired Review of Systems ENT: No trouble swallowing Respiratory: No cough, No shortness of breath Abdomen: No pain, No nausea, No vomiting Psychiatric: No anxiety Allergies Coded Allergies: No Known Allergies (Unverified , 10/01/16) Medications Current Inpatient Medications Medications (Trade) Dose Ordered Sig/Eric Route Start Time Stop Time Status Last Admin Dose Admin Ondansetron HCl (Zofran Inj) 4 mg Q6H PRN IV 12/25/16 17:00 01/24/17 16:59 Lorazepam (Ativan Inj) 0.5 mg Q2H PRN IV 12/25/16 17:00 01/24/17 16:59 Scopolamine (Transderm-Scop Patch) 1.5 mg Q72H PRN TD 12/25/16 17:00 01/24/17 16:59 12/25/16 21:23 1.5 MG Miscellaneous Information (Check Scopolamine Patch Placement) 1 ea QS N/A 12/26/16 00:00 01/25/17 00:00 12/26/16 08:25 1 EA Morphine Sulfate (MoRPHine SULFATE INJ) 1 mg Q30M PRN IV 12/25/16 17:00 01/08/17 16:59 12/26/16 08:48 1 MG Lorazepam 0.5 mg/ Syringe 1 ml @ 1 mls/min Q2H PRN IV 12/25/16 18:15 01/24/17 18:14 Miscellaneous (Iv Fluids Completed) 1 ea PRN PRN N/A 12/25/16 18:45 12/25/17 18:44 Physical Exam Date Time Temp Pulse Resp B/P (MAP) Pulse Ox O2 Delivery O2 Flow Rate FiO2 12/26/16 08:00 Room Air 12/26/16 01:05 Room Air 12/25/16 22:24 36.6 103 22 171/70 (103) 94 Room Air 12/25/16 20:00 Room Air 12/25/16 19:46 Room Air 12/25/16 18:13 36.8 106 20 151/100 (117) 91 Room Air 12/25/16 17:53 107 20 176/107 95 12/25/16 17:18 93 12/25/16 16:01 87 16 153/74 95 Room Air 12/25/16 14:51 87 16 147/62 92 Room Air General Appearance: no apparent distress, + cachetic, + thin ENT: hearing grossly normal Neck: supple, no JVD Respiratory: no respiratory distress, no accessory muscle use, + decreased breath sounds Cardiovascular: regular rate, rhythm, no edema, + normal peripheral pulses Abdomen: normal bowel sounds, non tender, soft Neurologic/Psychiatric: alert, normal mood/affect, + disoriented Skin: + pallor Assessment & Plan Palliative Performance Scale: 20 % Problem list: Altered mental status Right subdural hematoma with midline shift Cachexia Weakness/ambulatory dysfunction/bed-bound Hx [place] September 2016 Goals of care (Z51.5) Palliative care recs: -Comfort measures only. -Convert IV morphine to Roxanol which has been done. -Continue scopolamine patch. -Allow comfort feeding as tolerated. -Family would like to stay away from Ativan given patient's suicide attempt. -Home with hospice and private pay caregivers at night from 11p-7a. Family to call private agencies. Chose [facility] for hospice. Thank you kindly for this consult. Please contact me with any further palliative care needs.
[2016-12-26 16:00] VITALS: O2SAT 95
[2016-12-26] MEDS: MoRPHine SULFATE 5 MG/0.25 ML UDP PO PRN ×2 (17:26→23:09)
[2016-12-27] MEDS: MoRPHine SULFATE 5 MG/0.25 ML UDP PO PRN ×5 (02:14→21:49)
[2016-12-27] MEDS: CHECK SCOPOLAMINE PATCH PLACEMENT SCH (07:42)
[2016-12-27] MEDS: SCOPOLAMINE 1.5 MG TDSY TD PRN (07:44)
[2016-12-27] MEDS ORDERED: NURSING VERBAL MED ORDER ONE (10:45)
--- NOTE | 2016-12-27 11:29 | Progress Note ---
Subjective Date of Service: Dec 27, 2016. Subjective Pt evaluation today including: conversation w/ patient, conversation w/ family , physical exam, review of inpatient medication list Pain: denies pain PO Intake: improving Voiding: clemente catheter in place patient more alert and conversive today, c/o dry mouth, I removed Scopolamine patch denies headache very unsteady on his feet, has been falling in [place] behind his home long talk with patient's daughter, said they are arranging hospital bed at home and home care givers at night to go home on hospice once everything set up Problem List Medical Problems: (1) Acute chest pain Status: Acute (2) Anemia Status: Acute (3) Benzodiazepine overdose Status: Acute (4) Bilateral subdural hematomas Status: Acute (5) Non-ST elevation [place] (NSTEMI) Status: Acute (6) Suicide attempt by drug ingestion Status: Acute Review of Systems Constitutional: + weakness, + fatigue ENT: + problem reported (dry mouth) Neurologic: + weakness, + balance problems Psychiatric: + depression symptoms All Other Systems: Reviewed and Negative Medications Current Inpatient Medications Medications (Trade) Dose Ordered Sig/Eric Route Start Time Stop Time Status Last Admin Dose Admin Ondansetron HCl (Zofran Inj) 4 mg Q6H PRN IV 12/25/16 17:00 01/24/17 16:59 Lorazepam (Ativan Inj) 0.5 mg Q2H PRN IV 12/25/16 17:00 01/24/17 16:59 Lorazepam 0.5 mg/ Syringe 1 ml @ 1 mls/min Q2H PRN IV 12/25/16 18:15 01/24/17 18:14 Miscellaneous (Iv Fluids Completed) 1 ea PRN PRN N/A 12/25/16 18:45 12/25/17 18:44 Morphine Sulfate (Roxanol Oral Soln) 5 mg Q3H PRN PO 12/26/16 16:00 01/09/17 15:59 12/27/16 10:32 5 MG Objective Vital Signs Date Time Temp Pulse Resp B/P (MAP) Pulse Ox O2 Delivery O2 Flow Rate FiO2 12/27/16 08:00 Room Air 12/27/16 00:00 Room Air 12/26/16 16:00 95 Room Air Physical Exam General Appearance: WD/WN, no apparent distress ENT: hearing grossly normal, + pertinent finding (very dry mucous membranes) Respiratory/Chest: chest non-tender, lungs clear, normal breath sounds, no respiratory distress, no accessory muscle use Cardiovascular: regular rate, rhythm, no edema, no gallop, no JVD, no murmur Abdomen: normal bowel sounds, non tender, soft, no organomegaly Neurologic/Psychiatric: pr manager II-XII nml as tested, alert, normal mood/affect, oriented x 3, + abnormal gait, + motor weakness Skin: normal color, warm/dry, no rash Assessment and Plan Mr. Christopher is an 86 y/o with PMHx of Prostate CA, BPH, Bladder CA, NSTEMI (September) , COPD, CKD Stage III, Anemia, and Myasthenia Gravis who presents due to intentional overdose of Ativan in attempts for suicide. Head CT significant for bilateral subdural hematomas with midline shift. Considered to be subacute. After further discussion with daughter, he has been falling in [place] behind his home, no known head trauma and no external signs of hitting head. Suspected Intentional Benzodiazepine Overdose for Suicide: Depression - No toxicology ran - family reports all pills were gone and patient left suicide note - doubt that he took an entire bottle of Ativan because he is actually awake only 24 hours later Bilateral Subdural Hematomas with Midline Shift: Altered Mental Status - no plans for any surgical intervention - patient now awake, oriented, conversing appropriately, eating and drinking - still plan for home with hospice Comfort Measures Only: - Keep Clemente - can be D/Cd with this in place - Stop unnecessary fluids and medications - Roxanol PRN for pain - Scopolamine patch for secretions - stopped this today due to patient c/o dry mouth, allow him to eat and drink - If patient is alert enough and requesting food he may comfort feed Code Status: DO NOT RESUSCITATE Disposition: - Patient can be D/C'd when arrangements for Hospice and personal caregivers established - Palliative and Rv Service Technician following - discussed with both Discharge planning: home with Hospice
[2016-12-27 16:00] VITALS: O2SAT 95
[2016-12-28] MEDS: MoRPHine SULFATE 5 MG/0.25 ML UDP PO PRN ×5 (03:27→21:12)
--- NOTE | 2016-12-28 10:59 | Progress Note ---
Subjective Date of Service: Dec 28, 2016. Subjective Pt evaluation today including: conversation w/ patient, conversation w/ family (daughter and son), physical exam, review of inpatient medication list Pain: denies pain PO Intake: eating well Voiding: clemente catheter in place no issues overnight, patient oriented, conversing today, eating well cannot walk safely, no balance due to subdural hematoma no longer has dry mouth after scopolamine patch removed spoke with family, hospital bed delivered tomorrow, paid services will also be arranged as of tomorrow plan to d/c to home on hospice tomorrow Problem List Medical Problems: (1) Acute chest pain Status: Acute (2) Anemia Status: Acute (3) Benzodiazepine overdose Status: Acute (4) Bilateral subdural hematomas Status: Acute (5) Non-ST elevation [place] (NSTEMI) Status: Acute (6) Suicide attempt by drug ingestion Status: Acute Review of Systems Neurologic: + memory loss, + weakness, + balance problems All Other Systems: Reviewed and Negative Medications Current Inpatient Medications Medications (Trade) Dose Ordered Sig/Eric Route Start Time Stop Time Status Last Admin Dose Admin Ondansetron HCl (Zofran Inj) 4 mg Q6H PRN IV 12/25/16 17:00 01/24/17 16:59 Lorazepam (Ativan Inj) 0.5 mg Q2H PRN IV 12/25/16 17:00 01/24/17 16:59 Lorazepam 0.5 mg/ Syringe 1 ml @ 1 mls/min Q2H PRN IV 12/25/16 18:15 01/24/17 18:14 Miscellaneous (Iv Fluids Completed) 1 ea PRN PRN N/A 12/25/16 18:45 12/25/17 18:44 Morphine Sulfate (Roxanol Oral Soln) 5 mg Q3H PRN PO 12/26/16 16:00 01/09/17 15:59 12/28/16 06:23 5 MG Objective Vital Signs Date Time Temp Pulse Resp B/P (MAP) Pulse Ox O2 Delivery O2 Flow Rate FiO2 12/28/16 08:00 Room Air 12/28/16 00:00 Room Air 12/27/16 16:00 95 Room Air Physical Exam General Appearance: WD/WN, no apparent distress Neck: supple, no adenopathy, no JVD, trachea midline Respiratory/Chest: chest non-tender, lungs clear, normal breath sounds, no respiratory distress, no accessory muscle use Cardiovascular: regular rate, rhythm, no edema, no gallop, no JVD, no murmur Abdomen: normal bowel sounds, non tender, soft, no organomegaly Extremities: normal range of motion, non-tender, normal inspection, no pedal edema, no calf tenderness, normal capillary refill, pelvis stable Neurologic/Psychiatric: independent beauty consultant II-XII nml as tested, normal mood/affect, oriented x 3, + abnormal gait (cannot stand safely), + motor weakness Skin: normal color, warm/dry, no rash Assessment and Plan Mr. Christopher is an 86 y/o with PMHx of Prostate CA, BPH, Bladder CA, NSTEMI (September) , COPD, CKD Stage III, Anemia, and Myasthenia Gravis who presents due to intentional overdose of Ativan in attempts for suicide. Head CT significant for bilateral subdural hematomas with midline shift. Considered to be subacute. After further discussion with daughter, he has been falling in [place] behind his home, no known head trauma and no external signs of hitting head. Suspected Intentional Benzodiazepine Overdose for Suicide: Depression - No toxicology ran - family reports all pills were gone and patient left suicide note - doubt that he took an entire bottle of Ativan because he woke up only 24 hours later, completely oriented - mood seems improved at this time, no suicidal ideations, wants to be at home with his dog and family - wants to be on hospice Bilateral Subdural Hematomas with Midline Shift: Altered Mental Status on admission - no plans for any surgical intervention - patient now awake, oriented, conversing appropriately, eating and drinking - still plan for home with hospice, patient cannot ambulate or even stand up safely, likely due to pressure from hematomas - home with hospice, hospital bed to be delivered tomorrow Comfort Measures Only: - Keep Clemente - can be D/Cd with this in place - Stop unnecessary fluids and medications - Roxanol PRN for pain Code Status: DO NOT RESUSCITATE Disposition: - Patient can be D/C'd when arrangements for Hospice and personal caregivers established - Palliative and Respiratory Director following - discussed with both Discharge planning: home with Hospice
[2016-12-28] MEDS ORDERED: ONDA4TAB10 SL (11:00)
[2016-12-28] MEDS ORDERED: RXNS5 PO (11:00)
--- NOTE | 2016-12-28 11:06 | Discharge Instructions ---
Discharge Instructions Date of Service Dec 28, 2016. Admission Reason for Admission: Altered Mental Status, Subdural Hematoma Discharge Discharge Diagnosis / Problem: Subdural hematoma, subacute. Depression. Ambulatory dysfunction Discharge Goals Goal(s): Decrease discomfort, Specific goals (comfort care) Activity Recommendations Activity Limitations: per Instructions/Follow-up section keep in hospital bed most of the day due to balance clemente catheter in place so he does not have to get up to urinate would only get patient up with maximum assistance, at least two people basically, goals of care are comfort, so whatever makes patient comfortable is acceptable . Instructions / Follow-Up Instructions / Follow-Up Medications: previous medications stopped due to bleeding and now hospice status - ROXANOL: take every three hours as needed for any pain or shortness of breath , absorbed quickly in oral mucosa - ZOFRAN: take under tongue for any nausea or vomiting In summary, you have bilateral subacute subdural hematomas causing some midline shift in the brain main symptom appears to be balance and strength, you should remain in bed as much as possible if you do get up, have at least two people with you, and it would be to get you into a chair, you cannot walk safely No restriction on diet, eat whatever you want, whatever you enjoy FOLLOW UP - hospice care at home Current Hospital Diet Patient's current hospital diet: Regular Diet Discharge Diet Recommended Diet: Regular Diet Pending Studies Studies pending at discharge: no Laboratory Results Lipid Panel Test 10/02/16 02:00 Range/Units Triglycerides Level 105 0-150 mg/dl Cholesterol Level 124 0-200 mg/dl HDL Cholesterol 54 mg/dl Cholesterol/HDL Ratio 2.3 LDL Cholesterol, Calculated 49 mg/dl Medical Emergencies . Who to Call and When: Medical Emergencies: If at any time you feel your situation is an emergency, please call 911 immediately. . Non-Emergent Contact Non-Emergency issues call your: Primary Care Provider Call Non-Emergent contact if: you have any medication questions . . "Provider Documentation" section prepared by Vasiliy Swanson. . VTE Core Measure Inpt VTE Proph given/why not?: Treatment not indicated (comfort measures only, subdural hematomas) [place] Drug Monitoring Program Search Results: no issues identified
[2016-12-28 16:00] VITALS: O2SAT 95
[2016-12-28] MEDS ORDERED: NURSING VERBAL MED ORDER ONE (17:00)
[2016-12-28] MEDS ORDERED: FENTANYL 12 MCG/HR TDSY TD SCH (17:30)
[2016-12-29] MEDS: CHECK FENTANYL PATCH PLACEMENT SCH ×2 (00:07→07:49)
[2016-12-29] MEDS: MoRPHine SULFATE 5 MG/0.25 ML UDP PO PRN ×2 (03:01→12:34)
[2016-12-29] MEDS ORDERED: VLTG EXT (09:49)
[2016-12-29] MEDS ORDERED: ATV/1 PO (09:49)
[2016-12-29] MEDS ORDERED: DRGTP12 TD (09:49)
[2016-12-29] MEDS ORDERED: NYSS5 PO (09:49)
[2016-12-29 10:02] VITALS: BP 171/70; PULSE 103; TEMP 36.6; O2SAT 95
[2016-12-29] MEDS: DICLOFENAC SOD 1% GEL 100 GM TUBE EXT SCH ×2 (10:39→13:00)
[2016-12-29] MEDS: NYSTATIN SUSP 500,000 U/5 ML UDC PO SCH ×2 (10:39→12:33)
--- NOTE | 2016-12-29 12:34 | Progress Note ---
Progress Note Date of Service Dec 29, 2016. Progress Note 1230 - time S: no events overnight son/daughter at bedside both confirm plan is for home w/ hospice + private duty nurses he c/o right shoulder pain and dry mouth no other issues O: gen - thin, cacechtic, NAD mouth - probable thrush and dry mucosa neck - no JVD right shoulder - bony arthritis changes, muscular atrophy heart - RRR lungs - course BS b/l abd - soft ext - no edema A/P: 1. b/l SDHs 2. recent benzodiazepine overdose 3. weight loss per family 4. NSTEMI - likely type 2 / myocardial demand ischemia in setting of #1 above 5. recent encephalopathy, metabolic, from #1 - improved mentation per family, likely due to dissipation of brain swelling 6. thrush 7. arthritis 8. h/o prostate ca and bladder ca 9. CAD ok from my standpoint to transition home today with hospice SW is aware Micky Cabral MD
--- NOTE | 2016-12-29 12:44 | Discharge Summary ---
Discharge Summary Date of Service Dec 29, 2016. Discharge Summary Admission Date: Dec 25, 2016 at 17:09 Discharge Date: Dec 29, 2016 Discharge Disposition: Home with services (HOSPICE) Principal Diagnosis: b/l subdural hematomas Problems/Secondary Diagnoses: 1. multiple falls 2. presumed depression with probable suicide attempt by way of ingestion 3. h/o prostate cancer 4. h/o bladder cancer 5. BPH 6. recent weight loss and failure to thrive 7. NSTEMI 09/2016 8. COPD 9. CKD stage 3 10. anemia 11. myasthenia gravis 12. thrush 13. type 2 [place] / myocardial demand ischemia Immunizations: Have You Had Influenza Vaccine: No History of Tetanus Vaccine?: No History of Pneumococcal: No History of Hepatitis B Vaccine: No Procedures: 1. CT head - IMPRESSION: 1. Large mixed attenuation right subdural hematoma and moderate sized hyperdense left subdural hematoma. The right subdural hematoma may be subacute or acute on chronic while the left subdural hematoma is likely acute to subacute. 5 mm of leftward midline shift with mild compression of the right lateral ventricle. Associated sulcal effacement. Findings discussed with Dr. Soto at time of dictation. 2. No calvarial fracture. 2. cxr - emphysema changes Consultations: palliative care Medication Reconciliation New Medications: Nystatin (Nystatin) 5 Ml Susp 5 ML PO QID for 10 Days, #200 ML 1 Refill swish & swallow Ondasetron Odt (Zofran Odt) 4 Mg Tab 4 MG SL Q6H for Nausea, #10 TAB Diclofenac Sod (Voltaren) 100 Appln/100 Gm Gel 1 APPLN EXT QID, #1 TUBE 1 Refill may apply 4 grams to either shoulder, either knee, etc -- for joint pain. Fentanyl (Fentanyl) 12 Mcg Tdsy 12 MCG TD Q3D, #10 PATCH 0 Refills Morphine Sulfate (Morphine Sulfate) 5 Mg/0.25 Ml Soln 5 MG PO Q3H PRN for Pain/Respiratory Distress, #50 ML 0 Refills Changed Medications: Lorazepam (Ativan) 1 Mg Tab 0.5-1 MG PO Q4H PRN for Anxiety/Agitation, #30 TAB 0 Refills (Changed from: 0.5 MG; HS; Refills: ; Removed Instructions) Continued Medications: Latanoprost (Xalatan 0.005% Oph Kimberli) 0.005 % Kimberli 1 DROPS OP HS, ML Nitroglycerin (Nitrostat) 0.4 Mg/1 Tab Subl 0.4 MG SL UD PRN for Chest Pain, #100 TABS 2 Refills Discontinued Medications: Aspirin (Aspirin EC Low Dose) 81 Mg Ectab 81 MG PO QAM, #30 TABS 3 Refills Bicalutamide (Casodex) 50 Mg Tab 50 MG PO DAILY Clopidogrel Bisulfate (Clopidogrel) 75 Mg Tab 75 MG PO QAM, #30 TAB 2 Refills Tamsulosin Hcl (Flomax) 0.4 Mg Cap 0.4 MG PO QPM, CAP Discharge Exam Physical Exam: General Appearance: no apparent distress, + cachetic, + thin ENT: + pertinent finding (oral mucosa very dry; probable thrush on buccal mucosa) Neck: no JVD Respiratory/Chest: no respiratory distress, no accessory muscle use, + pertinent finding (course BS b/l ) Cardiovascular: regular rate, rhythm, no gallop, no murmur, normal peripheral pulses Abdomen / GI: normal bowel sounds, non tender, soft, no organomegaly Extremities: no pedal edema Neurologic/Psychiatric: alert, + disoriented Hospital Course History of Present Illness: 86yo male with a history of prostate cancer and BPH, bladder cancer, NSTEMI in September 2016, COPD, CKD stage III, anemia and myasthenia gravis who presented to the ED on 12/25 with altered mental status. The patient overdosed on his Ativan at home about 2 days ago, taking approximately 45 pills, each 1 mg. The family had also found a suicide note. The patient has attempted suicide in the past. The patient had altered mental status with decreased responsiveness. Per family , the patient did seem to perk up yesterday, but today he was again more lethargic and unable to respond. The family denies any specific complaints from the patient, but his states that he was not one to complain anyway. Unable to obtain ROS from the patient due to mental status. The patient was found to have bilateral subdural hematomas and midline shift on head CT. The family does not want any interventions and want to take him home on hospice. After speaking with case management in the ED, it was decided that the patient will be admitted for observation on comfort measures while the family makes arrangements for home hospice. Hospital Course: Following admission the patient was given comfort care measures as the plan from the outset was to ultimately transition him home with hospice services. He had encephalopathy, likely due to brain swelling from the subdural hematomas (and possibly the recent ativan ingestion), which improved while here. He was started on fentanyl patch and oral morphine for pain. Palliative care was formally consulted who assisted the family with the decision making process for hospice. Social work was heavily involved in discharge preparations. All un-necessary medications were discontinued. He will discharge to home with hospice services and a palliative care pathway. His family was also going to set up private duty nursing for additional help. Total Time Spent: Greater than 30 minutes This includes examination of the patient, discharge planning, medication reconciliation, and communication with other providers. Discharge Instructions Please refer to the electronic Patient Visit Report (Discharge Instructions) for additional information. Follow-Up with hospice at home Additional Copies To Sunny Lai M.D.
--- NOTE | 2016-12-29 16:05 | Palliative Care Progress Note ---
Palliative Care Progress Note Date of Service Dec 29, 2016. Subjective Pt evaluation today including: conversation w/ patient, conversation w/ family , conversation w/ program consultant Pain: 0/10 PO Intake: tolerating small amounts Voiding: clemente catheter in place Met with patient and family briefly this morning at their request as they had some questions about hospice/discharge. Patient is quite awake and alert today. Pleasantly confused. Denies any pain or discomfort. ROS not obtained due to mental status and his daughter was currently helping him with ADL. Full physical assessment not done as well. Son, Karl, had some questions about equipment delivery from hospice and had some questions about private duty caregivers. Questions answered to the best of my ability. Jenelle and Karl denied further questions/concerns. Review of Systems unable to obtain Objective Vital Signs Date Time Temp Pulse Resp B/P (MAP) Pulse Ox O2 Delivery O2 Flow Rate FiO2 12/29/16 10:02 36.6 103 22 95 Room Air 12/29/16 08:00 Room Air 12/29/16 04:00 Room Air 12/29/16 00:00 Room Air 12/28/16 16:00 95 Room Air Physical Exam General Appearance: no apparent distress, + cachetic, + thin ENT: hearing grossly normal Neck: supple, no JVD Respiratory/Chest: no respiratory distress, no accessory muscle use Neurologic/Psychiatric: alert, normal mood/affect, + disoriented Assessment and Plan Problem list: Altered mental status Right subdural hematoma with midline shift Cachexia Weakness/ambulatory dysfunction/bed-bound Hx [place] September 2016 Goals of care (Z51.5) Palliative care recs: -Patient to return home with hospice today. -Family working on setting up private duty caregivers for 11p-7a. -Continue current medications. Patient is comfortable. Please contact me with any further palliative care needs. Palliative Performance Scale: 20 % Discharge planning: home with Hospice
[2016-12-31] MEDS ORDERED: FENTANYL PATCH REMOVE & WASTE SCH (17:29)
== END 2016-12-29 14:36 | disposition home or self-care (01) ==
LOC: EDBD 13:05 → C.EDC 13:06 → C.MS2W 17:09 → ENRESERV 17:16
PROVIDERS: ADMIT Internal Medicine; ATTEND Internal Medicine
DX: C61 Malignant neoplasm of prostate (principal); C67.9 Malignant neoplasm of bladder, unspecified; R41.82 Altered mental status, unspecified; N40.1 Benign prostatic hyperplasia with lower urinary tract symptoms; N18.3 Chronic kidney disease, stage 3 (moderate); F17.210 Nicotine dependence, cigarettes, uncomplicated; J43.9 Emphysema, unspecified; I62.02 Nontraumatic subacute subdural hemorrhage; D64.9 Anemia, unspecified; R63.4 Abnormal weight loss; G70.00 Myasthenia gravis without (acute) exacerbation

== ENCOUNTER 2018-10-08 19:10 | Observation (INO) ==
--- OUTSIDE RECORDS SUMMARY | 2018-10-08 19:13 | External Medical Summary | Continuity of Care Document ---
:1930 Author Name Guanakito Hammond, Provider Address Unavailable Unavailable , Care Team Providers Name Role Phone [place]esha [place] [email or web address] Unavailable Unavailable MAYNOR SALINAS Unavailable Unavailable Unavailable Unavailable Unavailable Problems Fecal urgency (787.63) (R15.2) Frequent falls (V15.88) (R29.6) Cough (786.2) (R05) Dizziness, nonspecific (780.4) (R42) Acute URI (465.9) (J06.9) Diplopia (368.2) (H53.2) Neoplasm of bladder (239.4) (D49.4) Dysuria (788.1) (R30.0) Disc degeneration, lumbar (722.52) (M51.36) Asbestos exposure (V15.84) (Z77.090) Hematuria (599.70) (R31.9) Double vision (368.2) (H53.2) Carpal tunnel syndrome (354.0) (G56.00) 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) Light cigarette smoker (305.1) (Z72.0) Leg weakness, bilateral (729.89) (R29.898) Balance problem (781.99) (R26.89) Myalgia (729.1) (M79.10) Lumbar canal stenosis (724.02) (M48.061) Anemia (285.9) (D64.9) Fatigue (780.79) (R53.83) Insomnia (780.52) (G47.00) Cranial somatic dysfunction (739.0) (M99.00) Somatic dysfunction of both upper extremities (739.7) (M99.0 7) Pain in both shoulders (719.41) (M25.511) Change in bowel habits (787.99) (R19.4) Dyspnea (786.09) (R06.00) Fecal occult blood test positive (792.1) (R19.5) Allergies and Adverse Reactions No Known Drug Allergies (Allergy) Medications Bicalutamide 50 MG Oral Tablet; TAKE 1 TABLET DAILY. Start: 18-Feb-2018 Refills: 0 Tamsulosin HCl - 0.4 MG Oral Capsule; TAKE 1 CAPSULE DAILY. Stephany Garcia Start: 16-Sep-2018 Quantity: 30 Refills: 5 Multi Vitamin Mens Oral Tablet; TAKE 1 TABLET DAILY. Start: 19-Oct-2013 Refills: 0 Nitroglycerin 0.4 MG Sublingual Tablet S ublingual; PLACE 1 TABLET SUBLINGUALLY NEEDED FOR CHEST PAIN. LIMIT TO 3 DOSESIN 15 MINUTES. Stephany Garcia Start: 06-Oct-2016 Quantity: 15 Refills: 3 Latanoprost 0.005 % Ophthalmic Solution; INSTILL 1 DROP INTO AFFECTED EYE(S) ONCE DAILY DIRECTED. Stephany Garcia Start: 06-Oct-2016 Quantity: 1 2.5 ML Bottle Refills: 5 Procedures History of Carotid Thromboendarterectomy Status: Completed History of Radiation Therapy Status: Com pleted History of Abdominal Surgery Status: Com pleted Immunizations Immunizations not documented Plan of Treatment Planned Observations Planned Goals not documented Results No Known Results Results not documented Encounters Appointment; Vascular, Studies SC1 01-Mar-2018 10:15 Encounter Diagnosis: Problem not documented Appointment; Iesha Garcia M.D. 18-Feb-2018 11:15 Encounter Diagnosis: Problem not documented Appointment; Iesha Garcia M.D. 17-Nov-2017 14:00 Encounter Diagnosis: Problem not documented Appointment; Iesha Garcia M.D. 25-Sep-2017 10:00 Encounter Diagnosis: Problem not documented Appointment; Sunny Lai M.D. 22-Dec-2016 13:30 Encounter Diagnosis: Problem not documented Appointment; Raimundo Gonzalez DO 25-Nov-2016 9:00 Encounter Diagnosis: Problem not documented Appointment; Sunny Lai M.D. 08-Oct-2016 9:30 Encounter Diagnosis: Problem not documented
[2018-10-08] MEDS ORDERED: MoRPHine SULFATE 2 MG/ML CARP IV PRN (19:18)
[2018-10-08] MEDS ORDERED: MoRPHine SULFATE 4 MG/ML 1 ML CARP\\VIAL IV PRN (19:18)
[2018-10-08] MEDS ORDERED: SODIUM CHLORIDE 0.9% 1000ML 1,000 ML IV SCH (19:30)
[2018-10-08 19:42] LABS: Basophils # (auto) 0.03 K/uL (0-0.2); Basophils % (auto) 0.3 %; Eosinophils # (auto) 0.11 K/uL (0-0.5); Hematocrit (blood only) 39.2 % (42-52); Hemoglobin 13.1 g/dL (14.0-18.0); Immature Granulocytes # (auto) 0.02 K/uL (0.00-0.02); Immature Granulocytes % (auto) 0.2 %; Lymphocytes # (auto) 1.26 K/uL (1.2-3.4); Lymphocytes % (auto) 11.3 %; Mean Corpuscular Hgb Conc 33.4 g/dL (32-36); Mean Corpuscular Volume 93.6 fL (80-100); Mean Platelet Volume 9.9 fL (7.4-10.4); Monocytes # (auto) 0.67 K/uL (0.11-0.59); Neutrophils # (auto) 9.06 K/uL (1.4-6.5); Neutrophils % (auto) 81.2 %; Platelet Count 233 K/uL (130-400); RDW Coefficient of Variation 14.6 % (11.5-14.5); RDW Standard Deviation 49.5 fL (36.4-46.3); Red Blood Count 4.19 M/uL (4.7-6.1); White Blood Count 11.15 K/uL (4.8-10.8)
[2018-10-08 19:53] LABS: Partial Thromboplastin Ratio 0.9; Partial Thromboplastin Time 23.8 Seconds (21.0-31.0); Prothrombin Time 10.3 Seconds (9.0-12.0)
--- NOTE | 2018-10-08 20:01 | XRay Report ---
XR hip RT 2-3V w pelvis CLINICAL HISTORY: r hip pain COMPARISON STUDY: None. FINDINGS: No fracture or dislocation within the pelvis or hips. The sacrum appears intact. Advanced d egenerative changes within the visualized lumbar spine. IMPRESSION: No fracture or dislocation within the pelvis or hips. Electronically signed by: Sulaiman Colin M.D. 10/08/2018 8:00 PM
--- NOTE | 2018-10-08 20:04 | XRay Report ---
XR chest 1V portable HISTORY: fall COMPARISON: Chest 03/11/2018. FINDINGS: No pneumothorax. No pleural effusions. The heart remains mildly enlarged. Mild diffuse inte rstitial thickening which is likely chronic. Mild emphysema. No new focal lung consolidations to sugg est pneumonia. No evidence for pulmonary edema. Right apical nodular densities may represent scarring . IMPRESSION: 1. No acute process within the chest. 2. Emphysema. 3. Nonspecific small right apical densities. This could represent scarring. Follow-up chest x-ray in one month is recommended to evaluate for stability. Electronically signed by: Sulaiman Colin M.D. 10/08/2018 8:02 PM
[2018-10-08 20:06] LABS: Calcium 9.4 mg/dl (8.5-10.1); Creatinine Clr Calc Pharmacy 30.4 ml/min; Est GFR (African American) 46.4; Potassium 4.3 mmol/L (3.5-5.1)
[2018-10-08 20:12] LABS: Appearance Urine Clear (Clear); Bacteria Urine Automated Negative (Negative); Bilirubin Urine Negative (Negative); Blood Urine 2+ (Negative); Color Urine Yellow; Epithelial Cell Urine Auto 20-30 /lpf (0-5); Glucose Urine UA Negative (Negative); Ketones Urine Negative (Negative); Leukocyte Esterase Urine Negative (Negative); Nitrite Urine Negative (Negative); Protein Urine Trace (Negative); RBC Urine Automated >30 /hpf (0-4); Specific Gravity Urine 1.021 (1.000-1.030); Urobilinogen Urine Negative (Negative); pH Urine 5.5 (4.5-7.5)
--- NOTE | 2018-10-08 20:50 | XRay Report ---
RIGHT FEMUR 2 VIEWS HISTORY: r leg pain COMPARISON: None. FINDINGS: There is no fracture or dislocation. Vascular calcifications are noted. No soft tissue swel ling. No knee effusion. No radiopaque foreign bodies. Of note, the proximal femur was included on the same day right hip radiograph. IMPRESSION: No fractures within the right femur. Electronically signed by: Sulaiman Colin M.D. 10/08/2018 8:49 PM
--- NOTE | 2018-10-08 21:58 | CT Scan Report ---
RIGHT FEMUR CT CT DOSE: 471.17 mGy.cm HISTORY: r hip pain to mid femur TECHNIQUE: Multiaxial CT images of the right femur were performed and reformatted in the sagittal and coronal plane without the use of contrast. A dose lowering technique was utilized adhering to the p rinciples of MILANA. COMPARISON: Right femur 10/08/2018. FINDINGS: Nondisplaced fractures within the right superior and inferior pubic bones, medially. No fra cture or dislocation within the right femur. A 4.6 cm lucent lesion within the distal shaft of the ri ght femur. This is likely benign given the appearance. Vascular calcifications are noted. The prostat e gland is enlarged. Colonic diverticulosis. IMPRESSION: 1. Nondisplaced right superior and inferior bone fractures. 2. No fracture or dislocation within the right femur. Electronically signed by: Sulaiman Colin M.D. 10/08/2018 9:56 PM
--- NOTE | 2018-10-08 22:22 | Emergency Department Note ---
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 The patient states that prior to arrival that he was wood working when he tripped and fell on his right hip. He states that he is experiencing right hip pain, and denies any chest pain and back pain. He states that his hip pain worsens with movement. The patient reports that he did not loose consciousness after the fall. Per EMS, the patient is currently taking Hyomax, Crestor, Casodex, and NKDA. They states that the patient has no a llergies. He was unable to walk but did crawl to the car and was able to drive to his house and crawl inside. Patient denies taking any blood thinners. His only complaint at this time is right hip pain. He denies hitting his head or any neck pain. Home Medications Home Medications Medication Instructions Recorded Confirmed Type tamsulosin [Flomax] 0.4 mg PO DAILY 10/08/18 10/08/18 History Allergies Allergy/AdvReac Type Severity Reaction Status Date / Time No Known Allergies Allergy Unverified 10/08/18 20:01 Past Med/Surg History Medical History Bladder cancer Coronary artery disease Prostate cancer Surgical History History of orthopedic surgery Social History Preferred Language: Wallisian marital status: Current Living Situation: Spouse current occupational status: retired Feels Safe at Home: Yes Smoking Status: Current every day smoker Hx Alcohol Use: No Review of Systems See HPI for pertinent positives & negatives. and A total of 10 systems reviewed and were otherwise negative Physical Exam Vital Signs Vital Signs - 24 hr 10/08/18 19:18 10/08/18 20:55 Temperature 37.2 C Temperature Source Oral Sepsis Recent Fever Within 48 Hours No Sepsis New/Unexplained Change in Mental Status No Sepsis Action Taken by Nursing No Action Required Pulse Rate 85 Pulse Rate [Apical] 80 Respiratory Rate 18 18 Blood Pressure [Left Arm] 145/87 H Blood Pressure Mean [Left Arm] 106 Pulse Oximetry 92 93 Oxygen Delivery Method Room Air Room Air GENERAL: alert, well appearing for age, well nourished, no distress, non-toxic HEAD: normal cephalic, atraumatic EYE EXAM: normal conjunctiva, PERRL and EOM's grossly intact OROPHARYNX: no exudate, no erythema, lips, buccal mucosa, and tongue normal and mucous membranes are moist EARS: TMs clear b/l NECK: supple, no nuchal rigidity, no adenopathy, non-tender CHEST: stable to compression anteriorly and posteriorly LUNGS: clear to auscultation. Normal chest wall mechanics HEART: no murmurs, S1 normal and S2 normal ABDOMEN: abdomen soft, non-tender, normo-active bowel sounds, no masses, no rebound or guarding. PELVIS: stable to compression anteriorly and posteriorly BACK: Back is symmetrical on inspection and there is no deformity, no midline tenderness, no CVA tenderness. UPPER EXTREMITIES: full active and passive range of motion of all joints without tenderness to palpation. missing several digits. LOWER EXTREMITIES: full active and passive range of motion of all joints exc eption of tenderness and palpations of right hip and pelvis. NEURO EXAM: Normal sensorium, cranial nerves II-XII grossly intact, normal speech, no gross weakness of arms, no gross weakness of legs. GCS: 15. Course ED COURSE: Vital signs were reviewed and showed hypertensive situationally. The patients medical record was reviewed The above diagnostic studies were performed and reviewed. ED treatments and interventions as stated above. 1910: The patient was evaluated in room A3. A complete history and physical examination was performed. 2054: I reevaluated the patient and we will try to ambulate the patient. 2206: Dr. Iglesias- [facility] Hospitalist was notified. 2206: Upon reevaluation, the patient is resting comfortably. I discussed my f indings with the patient and he understands and agrees with the treatment plan. Based on the patients age, coexisting illnesses, exam and lab findings the decision to treat as an inpatient was made. The patient remained stable while under my care. The patient will be evaluated for further management. Reevaluation(s) Reevaluation #1: Dr. Iglesias- [facility] Hospitalis Time: 22:07 Administered Medications Sodium Chloride (Nss 1000ml) 1,000 mls @ 250 mls/hr IV .Q4H JULIA Stop: 10/08/18 23:29 Last Admin: 10/08/18 19:44 Dose: 250 mls/hr Documented by: [id number] Morphine Sulfate (Morphine Sulfate) 2 mg IV Q1H PRN PRN Reason: Moderate Pain (Rating 3,4,5,6) Stop: 10/22/18 19:17 Last Admin: 10/08/18 19:44 Dose: 2 mg Documented by: [id number] Morphine Sulfate (Morphine Sulfate) 4 mg IV Q1H PRN PRN Reason: Severe Pain (Rating 7,8,9,10) Stop: 10/22/18 19:17 Last Admin: 10/08/18 21:15 Dose: 4 mg Documented by: [id number] Medical Decision Making Differential Diagnosis Differential diagnosis: Etiologies such as fracture, dislocation, intra-abdominal, pneumothorax, intrathoracic , intracranial, neurologic, as well as other traumatic pathologies were entertained Medical Records Attestation: I reviewed the patient's medical records. Home Medications Current Medication List: was personally reviewed by me Laboratory Data Attestation: I reviewed the patient's lab results. Result diagrams: 10/08/18 19:18 10/08/18 19:18 Lab Results 10/08/18 10/08/18 10/08/18 Range/Units 19:18 19:18 19:18 WBC 11.15 H (4.8-10.8) K/uL RBC 4.19 L (4.7-6.1) M/uL Hgb 13.1 L (14.0-18.0) g/dL Hct 39.2 L (42-52) % MCV 93.6 (80-100) fL MCH 31.3 (25-34) pg MCHC 33.4 (32-36) g/dL RDW Std Deviation 49.5 H (36.4-46.3) fL RDW Coeff of Kathy 14.6 H (11.5-14.5) % Plt Count 233 (130-400) K/uL MPV 9.9 (7.4-10.4) fL Immature Gran % (Auto) 0.2 % Neut % (Auto) 81.2 % Lymph % (Auto) 11.3 % [place] % (Auto) 6.0 % Eos % (Auto) 1.0 % Baso % (Auto) 0.3 % Immature Gran # (Auto) 0.02 (0.00-0.02) K/uL Neut # (Auto) 9.06 H (1.4-6.5) K/uL Lymph # (Auto) 1.26 (1.2-3.4) K/uL [place] # (Auto) 0.67 H (0.11-0.59) K/uL Eos # (Auto) 0.11 (0-0.5) K/uL Baso # (Auto) 0.03 (0-0.2) K/uL PT 10.3 (9.0-12.0) Seconds INR 1.0 (0.9-1.1) APTT 23.8 (21.0-31.0) Seconds PTT Ratio 0.9 Sodium 140 (136-145) mmol/L Potassium 4.3 (3.5-5.1) mmol/L Chloride 108 H (98-107) mmol/L Carbon Dioxide 28 (21-32) mmol/L Anion Gap 4.0 (3-11) BUN 34 H (7-18) mg/dl Creatinine 1.52 H (0.6-1.4) mg/dl Est Cr Clr Drug Dosing 30.4 ml/min Est GFR ( Amer) 46.4 Est GFR (Non-Af Amer) 40.0 BUN/Creatinine Ratio 22.0 H (10-20) Glucose 98 (70-99) mg/dl Calcium 9.4 (8.5-10.1) mg/dl Urine Color Urine Appearance (Clear) Urine pH (4.5-7.5) Ur Specific [facility] (1.000-1.030) Urine Protein (Negative) Urine Glucose (UA) (Negative) Urine Ketones (Negative) Urine Blood (Negative) Urine Nitrite (Negative) Urine Bilirubin (Negative) Urine Urobilinogen (Negative) Ur Leukocyte Esterase (Negative) Urine WBC (Auto) (0-5) /hpf Urine RBC (Auto) (0-4) /hpf U Hyaline Cast (Auto) (0-5) /lpf U Epithel Cells (Auto) (0-5) /lpf Urine Bacteria (Auto) (Negative) 10/08/18 Range/Units 19:58 WBC (4.8-10.8) K/uL RBC (4.7-6.1) M/uL Hgb (14.0-18.0) g/dL Hct (42-52) % MCV (80-100) fL MCH (25-34) pg MCHC (32-36) g/dL RDW Std Deviation (36.4-46.3) fL RDW Coeff of Kathy (11.5-14.5) % Plt Count (130-400) K/uL MPV (7.4-10.4) fL Immature Gran % (Auto) % Neut % (Auto) % Lymph % (Auto) % [place] % (Auto) % Eos % (Auto) % Baso % (Auto) % Immature Gran # (Auto) (0.00-0.02) K/uL Neut # (Auto) (1.4-6.5) K/uL Lymph # (Auto) (1.2-3.4) K/uL [place] # (Auto) (0.11-0.59) K/uL Eos # (Auto) (0-0.5) K/uL Baso # (Auto) (0-0.2) K/uL PT (9.0-12.0) Seconds INR (0.9-1.1) APTT (21.0-31.0) Seconds PTT Ratio Sodium (136-145) mmol/L Potassium (3.5-5.1) mmol/L Chloride (98-107) mmol/L Carbon Dioxide (21-32) mmol/L Anion Gap (3-11) BUN (7-18) mg/dl Creatinine (0.6-1.4) mg/dl Est Cr Clr Drug Dosing ml/min Est GFR ( Amer) Est GFR (Non-Af Amer) BUN/Creatinine Ratio (10-20) Glucose (70-99) mg/dl Calcium (8.5-10.1) mg/dl Urine Color Yellow Urine Appearance Clear (Clear) Urine pH 5.5 (4.5-7.5) Ur Specific [facility] 1.021 (1.000-1.030) Urine Protein Trace H (Negative) Urine Glucose (UA) Negative (Negative) Urine Ketones Negative (Negative) Urine Blood 2+ H (Negative) Urine Nitrite Negative (Negative) Urine Bilirubin Negative (Negative) Urine Urobilinogen Negative (Negative) Ur Leukocyte Esterase Negative (Negative) Urine WBC (Auto) 5-10 H (0-5) /hpf Urine RBC (Auto) >30 H (0-4) /hpf U Hyaline Cast (Auto) 1-5 (0-5) /lpf U Epithel Cells (Auto) 20-30 H (0-5) /lpf Urine Bacteria (Auto) Negative (Negative) Imaging Data Radiologist's Impression: Radiology results as stated below per my review and the radiologist's interpretation: XR chest 1V portable HISTORY: fall COMPARISON: Chest 03/11/2018. FINDINGS: No pneumothorax. No pleural effusions. The heart remains mildly enlarged. Mild diffuse interstitial thickening which is likely chronic. Mild emphysema. No new focal lung consolidations to suggest pneumonia. No evidence for pulmonary edema. Right apical nodular densities may represent scarring. IMPRESSION: 1. No acute process within the chest. 2. Emphysema. 3. Nonspecific small right apical densities. This could represent scarring. Follow-up chest x-ray in one month is recommended to evaluate for stability. Electronically signed by: Sulaiman Colin M.D. 10/08/2018 8:02 PM XR hip RT 2-3V w pelvis CLINICAL HISTORY: r hip pain COMPARISON STUDY: None. FINDINGS: No fracture or dislocation within the pelvis or hips. The sacrum appears intact. Advanced degenerative changes within the visualized lumbar spine. IMPRESSION: No fracture or dislocation within the pelvis or hips. Electronically signed by: Sulaiman Colin M.D. 10/08/2018 8:00 PM RIGHT FEMUR 2 VIEWS HISTORY: r leg pain COMPARISON: None. FINDINGS: There is no fracture or dislocation. Vascular calcifications are noted. No soft tissue swelling. No knee effusion. No radiopaque foreign bodies. Of note, the proximal femur was included on the same day right hip radiograph. IMPRESSION: No fractures within the right femur. Electronically signed by: Sulaiman Colin M.D. 10/08/2018 8:[address] DOSE: 471.17 mGy.cm HISTORY: r hip pain to mid femur TECHNIQUE: Multiaxial CT images of the right femur were performed and reformatted in the sagittal and coronal plane without the use of contrast. A dose lowering technique was utilized adhering to the principles of ALARA. COMPARISON: Right femur 10/08/2018. FINDINGS: Nondisplaced fractures within the right superior and inferior pubic bones, medially. No fracture or dislocation within the right femur. A 4.6 cm lucent lesion within the distal shaft of the right femur. This is likely benign given the appearance. Vascular calcifications are noted. The prostate gland is enlarged. Colonic diverticulosis. IMPRESSION: 1. Nondisplaced right superior and inferior bone fractures. 2. No fracture or dislocation within the right femur. Electronically signed by: Sulaiman Colin M.D. 10/08/2018 9:56 PM ECG Data Attestation: I personally reviewed and interpreted this ECG as follows: Indication: other (fall) Rate (beats per minute): 87 Rhythm: sinus rhythm Findings: + PVC, + RBBB and + left axis deviation Comparison ECG Date: from (03/11/18) Change: the following changes noted (PVC is new, RBBB and left axis are old) Blood Pressure Blood Pressure Findings: Elevated blood pressure Blood Pressure Disposition: elevated BP felt to be situational MDM Narrative Patient is an 87-year-old male who presents the ER following a mechanical fall in his barn onto his right hip. He denies hitting his head or any loss conscio usness. He notes that he had to crawl to the car as he could not walk. Labs were obtained and showed a mild leukocytosis of 11,000. No significant anemia. BMP was fairly unremarkable with a creatinine 1.52. UA was contaminated. He has no complaints with exception of his right hip. X-rays of the pelvis hip and femur show no obvious fractures. CT of the pelvis was performed as this gentleman could not walk and showed right superior and inferior pubic rami fracture. He was given 2 dose of IV narcotics. Family and patient were updated at bedside. Family was extremely uncomfortable with him going home and was preferring rehab. Due to his insurance she would need to stay in the hospital. Patient family were updated bedside. Discussed with the hospitalist for further evaluation for right superior and inferior pubic rami fractures. Impression & Plan Closed fracture of pubic ramus, Hip pain Discharge Plan Visit Data Chief Complaint: Hip Pain Stated Complaint: FALL, R HIP PAIN ED Provider: Morales Johnson Discharge Problem: Closed fracture of pubic ramus, Hip pain Forms Stand Alone Forms: My [facility] Prescriptions Prescriptions: No Action tamsulosin [Flomax] 0.4 mg Capsule 0.4 mg PO DAILY RF: 0 Discharge Problem: Closed fracture of pubic ramus Qualifiers: Encounter type: initial encounter Laterality: right Qualified Code(s): S32.591A - Other specified fracture of right pubis, initial encounter for closed fracture Hip pain Qualifiers: Laterality: right Qualified Code(s): M25.551 - Pain in right hip The scribe's documentation has been prepared under my direction and personally reviewed by me in its entirety. I confirm that the note above accurately reflects all work, treatment, procedures, and medical decision making performed by me.
--- NOTE | 2018-10-09 00:03 | History & Physical Report ---
Date of Service October 08, 2018 Assessment & Plan (1) Closed fracture of pubic ramus: 86 y/o Hx prostate CA, BPH, bladder CA, CAD/NSTEMI 09/2016, COPD, CKD III, anemia, myasthenia gravis, subdural hematomas. Presents following a mechanical fall c/o of pelvic pain. A CT of the pelvis demonstrated nondisplaced right superior and inferior pubic bone fractures. The pt is not able to ambulate and will therefore be admitted until he can be placed in a rehab facility. He denies lightheadedness or palpitations prior to falling. 1) Fall - pelvic fracture - cannot ambulate and he lives alone. despite this, he was requesting to be DCd home. I informed him he may need short-term rehab although a final decision can take place after AM PT/OT assessment. Analgesics provided. 2) CAD - no evidence of ACS - takes daily ASA only 3) BPH - prostate CA - cont Flomax 4) CKD - renal function is slightly impaired compared to baseline - IVF provided 5) History of myesthenia gravis in chart - curiously he is not treating this either 6) Active bladder and prostate CA - opted for no treatment. SCDs due to chronic hematuria Total time for this admit including review of labs, meds, imaging, records - discussion with pt and ER attending - 38 min History of Present Illness Primary Care Provider: Iesha Shukla MD 86 y/o Hx prostate CA, BPH, bladder CA, CAD/NSTEMI 09/2016, COPD, CKD III, anemia, myasthenia gravis, subdural hematomas. Presents following a mechanical fall c/o of pelvic pain. A CT of the pelvis demonstrated nondisplaced right superior and inferior pubic bone fractures. The pt is not able to ambulate and will therefore be admitted until he can be placed in a rehab facility. He denies lightheadedness or palpitations prior to falling. PMH: 1) Prostate CA 2) Bladder CA - both cancers are active and he has declined to treat either 3) BPH 4) CAD/NSTEMI 5) COPD 6) CKD III 7) Anemia 8) Myasthenia gravis 9) BL subdural hematomas 12/2016 - he was placed on hospice during admission. 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 Family: Noncontributory due to pt's age Allergies Allergy/AdvReac Type Severity Reaction Status Date / Time No Known Allergies Allergy Unverified 10/08/18 20:01 Home Medications Home Medications Medication Instructions Recorded Confirmed Type tamsulosin [Flomax] 0.4 mg PO DAILY 10/08/18 10/08/18 History Past Med/Surg History Medical History Bladder cancer Coronary artery disease Prostate cancer Surgical History History of orthopedic surgery Social History Preferred Language: Bermudian marital status: Current Living Situation: Spouse current occupational status: retired Feels Safe at Home: Yes Smoking Status: Current every day smoker Hx Alcohol Use: No Review of Systems Review of Systems: Gen: Denies fevers, night sweats, rigors, fatigue, malaise, weight loss/gain ENT: Denies congestion, throat pain, hearing loss Eyes: Denies acute visual changes CV: Denies CP, palpitations Pulmonary: Denies SOB, cough, wheezing GI: Denies N/V, diarrhea, constipation Neuro: Denies acute or unilateral weakness, acute gait impairment, headache or acute visual changes Musculoskeletal: Ant pelvic pain Endocrine: Denies polydipsia, polyuria Skin: Denies acute rashes or ulcers Physical Exam Physical Exam: General: AAO x 3, no distress ENT: No erythema or exudates, no thrush Eyes: JOSE A, EOMI Head and neck: Normocephalic, atraumatic, No JVD, neck is supple. Chest/heart: Nontender, S1,2, RRR, no murmurs, no gallops Lungs: CTAB, no wheezing or crackles Abdomen: Nontender, nondistended, BS+ Neuro: AAO x 3, speech is slightly impaired, no unilateral weakness or loss of sensation, coordination intact Musculoskeletal: Multiple fingers missing on each hand Skin: No acute rashes or ulcers Extremities: No clubbing, cyanosis, edema Results & Data Vital Signs (Past 12 Hours) Vital Signs Temp Pulse Pulse Resp BP Pulse Ox 10/08/18 22:55 95 H 18 111/63 92 10/08/18 20:55 80 18 145/87 H 93 10/08/18 19:18 99.0 F 85 18 92 Diagnostic Findings 1. Nondisplaced right superior and inferior pubic bone fractures. 2. No fracture or dislocation within the right femur. (1) Closed fracture of pubic ramus Encounter type: initial encounter Laterality: right Qualified Code(s): S32.591A - Other specified fracture of right pubis, initial encounter for closed fracture
[2018-10-09] MEDS ORDERED: SODIUM CHLORIDE 0.9% 1000ML 1,000 ML IV SCH (01:00)
[2018-10-09] MEDS ORDERED: POLYETHYLENE (MIRALAX) 17 GM PACK PO PRN (02:57)
[2018-10-09] MEDS ORDERED: ONDANSETRON INJ 2 MG/ML 2 ML VIAL IV PRN (02:57)
[2018-10-09] MEDS ORDERED: MoRPHine SULFATE 2 MG/ML CARP IV PRN (02:57)
[2018-10-09] MEDS ORDERED: ALUMINUM/MAGNESIUM SUSP 30 ML UDC PO PRN (02:57)
[2018-10-09] MEDS ORDERED: MAGNESIUM HYDROXIDE SUSP 30 ML UDC PO PRN (02:57)
[2018-10-09] MEDS: TAMSULOSIN HCL 0.4 MG CAP PO SCH (09:24)
[2018-10-09] MEDS: ACETAMINOPHEN 325 MG TAB PO PRN (21:24)
--- NOTE | 2018-10-10 00:05 | Consultation Report ---
DATE OF CONSULTATION: 10/09/2018 HISTORY OF PRESENT ILLNESS: An 87-year-old gentleman seen at the request of Dr. Hernan Iglesias for right superior and inferior pubic rami fractures. Apparently, the patient was in state of normal health. He sustained a mechanical fall and had pain in his pelvis. He was then transferred to [facility]. He was seen and evaluated. Radiographs were obtained noting a right superior and inferior pubic rami fractures. The patient was admitted to the hospitalist service for management of multiple comorbidities as well as staging for care for his pelvic fractures. Orthopedics was consulted. PAST MEDICAL HISTORY: Significant for prostate cancer, bladder cancer not currently treated, BPH, CAD, non-ST elevated ID, COPD, CKD grade III, anemia, myasthenia gravis, bilateral subdural hematomas 12/2016, multiple fingers amputated with a circular saw accident. PAST SURGICAL HISTORY: Extensive abdominal surgeries at age 20, hernia repair x3, multiple hand surgeries. ALLERGIES: No known drug allergies. MEDICATIONS: Flomax 0.4 mg p.o. daily. SOCIAL HISTORY: Smokes 5-10 cigarettes per day. No alcohol. 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 He is retired and lives at home with his cat. PHYSICAL EXAMINATION: GENERAL: This is an 87-year-old gentleman supine in his hospital room bed with several visitors surrounding him. He is alert and oriented x3. Speech clear and fluent. Affect is appropriate. MUSCULOSKELETAL: Examination of the pelvis demonstrates skin warm, dry and intact. No significant ecchymosis, moderate tenderness to palpation over the right superior and inferior pubic rami, some discomfort with pelvic rock and pelvic compression. However, there is no instability noted. No pain with log roll of either lower extremity. He is able to actively flex and extend his hip and actively internally and externally rotate the hip with minimal discomfort. He does have discomfort; however, with abduction and adduction of the right lower extremity, both actively and passively. Pulses are palpable. Feet are warm and sensation is intact bilateral lower extremities. Limited motor strength due to pain and guarding in the right pelvis. Radiographs and CT reviewed demonstrating a stable superior and inferior pubic ramus fracture with some osteopenia and some degenerative changes in the right hip joint capsule. No other secondary fractures noted. IMPRESSION: Stable pattern right superior and inferior pubic rami fractures status post mechanical fall. RECOMMENDATION: Conservative management, bed rest today and then out of bed as tolerated with walker and assist x1. May engage with physical therapy and occupational therapy. Recommend likely rehab stay as the patient does live alone. Follow up in clinic with Dr. Greene for reassessment and follow up radiographs in approximately 2-3 weeks. Thank you for the opportunity to consult in the care of this patient.
[2018-10-10] MEDS: TAMSULOSIN HCL 0.4 MG CAP PO SCH (08:22)
[2018-10-10] MEDS: ACETAMINOPHEN 325 MG TAB PO PRN ×2 (12:25→21:20)
--- NOTE | 2018-10-10 16:17 | Hospitalist Progress Note ---
Date of Service October 10, 2018 Assessment & Plan (1) Closed fracture of pubic ramus: 86 y/o Hx prostate CA, BPH, bladder CA, CAD/NSTEMI 09/2016, COPD, CKD III, anemia, myasthenia gravis, subdural hematomas. Presents following a mechanical fall c/o of pelvic pain. A CT of the pelvis demonstrated nondisplaced right superior and inferior pubic bone fractures. The pt is not able to ambulate and will therefore be admitted until he can be placed in a rehab facility. He denies lightheadedness or palpitations prior to falling. 1) Fall - pelvic fracture - cannot ambulate and he lives alone. despite this, he was requesting to be DCd home. PT recommends SNF. Patient is now agreeable. Awaiting placement. 2) CAD - no evidence of ACS - takes daily ASA only 3) BPH - prostate CA - cont Flomax 4) CKD - renal function is slightly impaired compared to baseline - IVF provided will recheck in AM. 5) History of myesthenia gravis in chart - curiously he is not treating this either 6) Active bladder and prostate CA - opted for no treatment. SCDs due to chronic hematuria Spent 25 minutes in management of patient. Awaiting placement. Subjective 87 yo male reports feeling better today. He states yesterday he was unable to bear weight as it was too painful. Today his pain has decreased in intensity and he has been able to ambulate with the walker. He reports that he had a bowel movement today. Patient denies any fever, chills, nausea, vomiting. Review of Systems Review of Systems: All systems reviewed & are unremarkable except as noted in HPI & below Physical Exam Physical Exam: General: AAO x 3, no distress ENT: No erythema or exudates, no thrush Eyes: JOSE A, EOMI Head and neck: Normocephalic, atraumatic, No JVD, neck is supple. Chest/heart: Nontender, S1,2, RRR, no murmurs, no gallops Lungs: CTAB, no wheezing or crackles Abdomen: Nontender, nondistended, BS+ Neuro: AAO x 3, speech is slightly impaired, no unilateral weakness or loss of sensation, coordination intact Musculoskeletal: Multiple fingers missing on each hand Skin: No acute rashes or ulcers Extremities: No clubbing, cyanosis, edema Results & Data Vital Signs (Past 12 Hours) Vital Signs Temp Pulse Resp BP Pulse Ox 10/10/18 15:52 36.9 C 88 17 151/61 H 94 10/10/18 12:47 98 10/10/18 07:27 36.4 C L 16 135/70 90 (1) Closed fracture of pubic ramus Encounter type: initial encounter Laterality: right Qualified Code(s): S32.591A - Other specified fracture of right pubis, initial encounter for closed fracture
[2018-10-11 08:28] LABS: BUN Creatinine Ratio 17.5 (10-20); Calcium 9.2 mg/dl (8.5-10.1); Creatinine Clr Calc Pharmacy 36.3 ml/min; Est GFR (Non-African American) 54.4; Potassium 3.8 mmol/L (3.5-5.1)
[2018-10-11] MEDS: TAMSULOSIN HCL 0.4 MG CAP PO SCH (08:38)
[2018-10-11 09:27] LABS: Hematocrit (blood only) 36.6 % (42-52); Hemoglobin 12.2 g/dL (14.0-18.0); Mean Corpuscular Hgb Conc 33.3 g/dL (32-36); Mean Corpuscular Volume 92.4 fL (80-100); Mean Platelet Volume 10.3 fL (7.4-10.4); Platelet Count 203 K/uL (130-400); RDW Coefficient of Variation 14.3 % (11.5-14.5); RDW Standard Deviation 48.4 fL (36.4-46.3); Red Blood Count 3.96 M/uL (4.7-6.1); White Blood Count 7.18 K/uL (4.8-10.8)
--- NOTE | 2018-10-11 12:26 | Hospitalist Progress Note ---
Date of Service October 11, 2018 Assessment & Plan (1) Closed fracture of pubic ramus: - A CT of the pelvis demonstrated nondisplaced right superior and inferior pubic bone fractures. - pain management - PT/OT (2) Fall: (3) CAD (coronary artery disease): continue ASA (4) BPH (benign prostatic hyperplasia): continue Flomax (5) CKD (chronic kidney disease), stage III: improved to baseline with IVF Avoid nephrotoxins where possible. (6) Myasthenia gravis: not currently being treated (7) Prostate CA: Had surgical intervention in the past but otherwise has opted for no treatement (8) DVT prophylaxis: SCDs due to chronic hematuria Dispo: placement at [facility] Subjective Mr. Christopher is comfortable while laying in bed but does have pain with movement. He otherwise has no complaints. Review of Systems Review of Systems: All systems reviewed & are unremarkable except as noted in HPI & below Physical Exam Physical Exam: General: no distress Eyes: normal inspection, PERLL Respiratory: chest non tender, clear to auscultation, normal breath sounds, no respiratory distress, no accessory muscle use Cardiac: regular rate and rhythm, no rub or gallop, no murmur, no edema, no jvd GI/: active bowel sounds, no abd pain or tenderness, soft, non distended Extremities: normal range of motion, normal strength, non tender Neuro/Psych: alert and oriented x 3, normal mood and affect Skin: normal color, dry Results & Data Vital Signs (Past 12 Hours) Vital Signs Temp Pulse Resp BP Pulse Ox 10/11/18 07:57 37.0 C 92 H 18 124/66 90 (1) Closed fracture of pubic ramus Encounter type: initial encounter Laterality: right Qualified Code(s): S32.591A - Other specified fracture of right pubis, initial encounter for closed fracture
[2018-10-11] MEDS ORDERED: Nursing to Pharmacy Communication ONE (19:41)
[2018-10-11] MEDS: TRAMADOL HCL 50 MG TABLET PO PRN (19:44)
[2018-10-11] MEDS: ROSUVASTATIN CALCIUM 5 MG TAB PO SCH (20:52)
[2018-10-11] MEDS: BICALUTAMIDE 50 MG TAB PO SCH (20:52)
[2018-10-11] MEDS: ACETAMINOPHEN 325 MG TAB PO PRN (20:52)
[2018-10-12] MEDS: TRAMADOL HCL 50 MG TABLET PO PRN ×2 (08:37→16:09)
[2018-10-12] MEDS: TAMSULOSIN HCL 0.4 MG CAP PO SCH (08:38)
[2018-10-12] MEDS: DOCUSATE SODIUM 100 MG CAP PO SCH (08:38)
[2018-10-12] MEDS ORDERED: ROSUVASTATIN CALCIUM 5 MG TAB PO SCH ×2 (09:00→21:00)
[2018-10-12] MEDS ORDERED: BICALUTAMIDE 50 MG TAB PO SCH ×2 (09:00→21:00)
--- NOTE | 2018-10-12 16:29 | Hospitalist Progress Note ---
Date of Service October 12, 2018 Assessment & Plan (1) Closed fracture of pubic ramus: - A CT of the pelvis demonstrated nondisplaced right superior and inferior pubic bone fractures. - pain management - PT/OT - Ortho consulted - medical management for now. Patient will need to follow up with Dr. Greene in 2 weeks. (2) Fall: (3) CAD (coronary artery disease): continue ASA (4) BPH (benign prostatic hyperplasia): continue Flomax (5) CKD (chronic kidney disease), stage III: improved to baseline with IVF Avoid nephrotoxins where possible. (6) Myasthenia gravis: not currently being treated (7) Prostate CA: Had surgical intervention in the past but otherwise has opted for no treatment. Continue Casodex (8) DVT prophylaxis: SCDs due to chronic hematuria Dispo: inpatient rehab placement pending Subjective Mr. Christopher reports his pain is 8/10 with movement but is minimal while still. He otherwise has no complaints. Review of Systems Review of Systems: All systems reviewed & are unremarkable except as noted in HPI & below Physical Exam Physical Exam: General: no distress Eyes: normal inspection, PERLL Respiratory: chest non tender, clear to auscultation, normal breath sounds, no respiratory distress, no accessory muscle use Cardiac: regular rate and rhythm, no rub or gallop, no murmur, no edema, no jvd GI/: active bowel sounds, no abd pain or tenderness, soft, non distended Extremities: normal range of motion, normal strength, non tender Neuro/Psych: alert and oriented x 3, normal mood and affect Skin: normal color, dry Results & Data Vital Signs (Past 12 Hours) Vital Signs Temp Pulse Resp BP BP Pulse Ox 10/12/18 16:14 36.8 C 86 18 128/68 91 10/12/18 06:55 36.8 C 77 16 129/62 92 (1) Closed fracture of pubic ramus Encounter type: initial encounter Laterality: right Qualified Code(s): S32.591A - Other specified fracture of right pubis, initial encounter for closed fracture
[2018-10-12] MEDS: BICALUTAMIDE 50 MG TAB PO SCH (21:20)
[2018-10-12] MEDS: ACETAMINOPHEN 325 MG TAB PO PRN (21:20)
[2018-10-12] MEDS: ROSUVASTATIN CALCIUM 5 MG TAB PO SCH (21:20)
[2018-10-13] MEDS: DOCUSATE SODIUM 100 MG CAP PO SCH (08:59)
[2018-10-13] MEDS: TAMSULOSIN HCL 0.4 MG CAP PO SCH (09:00)
--- NOTE | 2018-10-13 14:26 | Discharge Summary ---
Date of Service October 12, 2018 Admission HPI Per Admitting Provider 86 y/o Hx prostate CA, BPH, bladder CA, CAD/NSTEMI 09/2016, COPD, CKD III, anemia, myasthenia gravis, subdural hematomas. Presents following a mechanical fall c/o of pelvic pain. A CT of the pelvis demonstrated nondisplaced right superior and inferior pubic bone fractures. The pt is not able to ambulate and will therefore be admitted until he can be placed in a rehab facility. He denies lightheadedness or palpitations prior to falling. PMH: 1) Prostate CA 2) Bladder CA - both cancers are active and he has declined to treat either 3) BPH 4) CAD/NSTEMI 5) COPD 6) CKD III 7) Anemia 8) Myasthenia gravis 9) BL subdural hematomas 12/2016 - he was placed on hospice during admission. 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 Family: Noncontributory due to pt's age Principal Diagnosis Pelvic fracture Discharge Exam Constitutional WD/WN, vitals as above Respiratory normal respiratory effort, lungs clear to auscultation Cardiovascular RRR, no murmur, no edema Gastrointestinal (Abdomen) normal bowel sounds, soft, nontender, no hepatosplenomegaly Musculoskeletal no cyanosis or clubbing, extremities motor strength 5/5 Skin no rashes, warm and dry Neurologic patellar DTR's 2+ bilat, sensation intact Psychiatric A+Ox3, euthymic affect Discharge Data Allergies Allergy/AdvReac Type Severity Reaction Status Date / Time No Known Allergies Allergy Unverified 10/08/18 20:01 Consultations 10/08/18 22:03 ED Decision to Admit Stat 10/09/18 07:43 Consult Orthopedic Surgery Routine Ordered Studies 10/08/18 21:16 CT lower leg RT wo con Stat Hospital Course (1) Closed fracture of pubic ramus: - A CT of the pelvis demonstrated nondisplaced right superior and inferior pubic bone fractures. - pain management - PT/OT - Ortho consulted - medical management for now. Patient will need to follow up with Dr. Greene in 2 weeks. (2) Fall: (3) CAD (coronary artery disease): continue ASA (4) BPH (benign prostatic hyperplasia): continue Flomax (5) CKD (chronic kidney disease), stage III: improved to baseline with IVF Avoid nephrotoxins where possible. (6) Myasthenia gravis: not currently being treated (7) Prostate CA: Had surgical intervention in the past but otherwise has opted for no treatment. Continue Casodex (8) DVT prophylaxis: SCDs due to chronic hematuria Dispo:to [facility] Total Time Total Time Spent Total Time Spent (In Minutes): greater than 30 minutes Discharge Plan Discharge Items Patient Disposition: Transfer Inpatient Rehab Fac Reason For Visit: PELVIC FRACTURE Discharge Diagnosis: Pelvic fracture Discharge Goals: Decrease discomfort and Improve disease control Activity: Resume your previous activity Non-emergency contact: Primary Care Provider Call non-emergency contact if: you have any medication questions and your symptoms worsen Follow-up/Referrals: Iesha Shukla MD [Primary Care Provider] - Diet: Regular Addtl Provider Instructions: Discharge to inpatient rehab at [facility]. Follow up with Dr. Greene in 2 weeks. Prescriptions: New tramadol 50 mg Tablet 50 mg PO Q4H PRN (Reason: pain) Qty: 20 RF: 0 Continued tamsulosin [Flomax] 0.4 mg Capsule 0.4 mg PO DAILY RF: 0 bicalutamide 50 mg Tablet 50 mg PO DAILY RF: 0 rosuvastatin 5 mg Tablet 5 mg PO DAILY RF: 0 docusate sodium 100 mg Capsule 100 mg PO DAILY RF: 0 Stand-Alone Forms: [facility] Discharge Orders: Discharge Order (Routine); Ordered 10/13/18 Ordered By: Monica Carrington Skilled Items Patient informed of condition?: Yes DNR: Yes Discharge Level of Care: Acute rehab Communicable Disease: No Discharge Prognosis: Stable Admission Data Admit Date/Time: 10/09/18 00:55 Attending Provider: Sky Barone Admit Provider: Hernan gIlesias Primary Care Provider: Iesha Shukla Other Providers: Hernan Iglesias ; Law Greene ; Eliseo Navarro ; Monica Carrington Service: Medical Other Interventions: Discharge Summary Assessment (RN) Last Done: 10/13/18 13:43
== END 2018-10-13 16:05 ==
LOC: 3N 19:10 → ED 19:10 → SUATTDRO 10-09 00:55 → 3N 10-09 02:29